=== PATIENT | male | born 1930 | race Caucasian/White ===

== ENCOUNTER 2016-12-04 15:19 | Observation (INO) ==
[2016-12-04] MEDS ORDERED: CEFTRIAXONE 1 G in NS 100 ML IV ONE (15:37)
[2016-12-04] MEDS ORDERED: SALINE FLUSH 10ml SYRINGE IVF PRN (15:37)
[2016-12-04] MEDS: LR 1,000 ML IV SCH ×3 (16:24→23:29)
--- NOTE | 2016-12-04 16:40 | XRay Report ---
Indication: Fever PROCEDURE: XR chest 1V: Encounter: Initial Comparison: 11/01/2015 Findings: The patient is status post median sternotomy. The exam is slightly expiratory in nature with somewhat discoid or linear atelectasis in both lung bases. No definite lobar consolidation or pleural effusion. Heart size is normal. There is moderate calcification of the transverse thoracic aorta. There is mild tortuosity of the descending thoracic aorta. Heart size is normal. Impression: Linear changes of atelectasis or scarring in both lung bases with overall expiratory technique. .
--- NOTE | 2016-12-04 16:58 | Emergency Department Report ---
Fever HPI - General Chief Complaint: Fever Stated Complaint: fever,chills,(cancer pt) Time Seen by Provider: 12/04/16 15:29 Source: patient, old records reviewed Mode of arrival: ambulatory Limitations: no limitations - History of Present Illness HPI Narrative: 86yo man presents to the ER for evaluation of a fever. Pt has lymphoma; is being treated by Dr. Heredia. Pt had a biliary perc tube placed 5 days ago; was told to present to the ER if he had a fever. Today, pt spiked a temp of 101'F; dutifully presented to the ER. complaint: fever Onset (ago): hour(s) Temperature Source: oral Context: recent procedure Associated symptoms: chills, rigors Relieving factors: acetaminophen Exacerbating factors: nothing Treatments prior to arrival fever: acetaminophen - Related Data Home Medications Medication Instructions Recorded Confirmed Ascorbic Acid [Vitamin C] 500 mg PO DAILY #0 09/18/15 12/04/16 Aspirin [Aspir 81] 81 mg PO HS #0 09/18/15 12/04/16 Atenolol 25 mg PO BID #0 09/18/15 12/04/16 Multivitamin with Minerals 1 tab PO HS #0 09/18/15 12/04/16 [Multivitamins with Minerals] Phenytoin Sodium Extended 200 mg PO BID #0 09/18/15 12/04/16 Calcium Carbonate [Caltrate] 600 mg PO DAILY 12/04/16 12/04/16 Chlorpheniramine [Chlor-Trimeton] 4 mg PO BID 12/04/16 12/04/16 Cholecalciferol (Vitamin D3) 1,000 unit PO DAILY 12/04/16 12/04/16 [Vitamin D3] Cod Liver Oil 1 cap PO DAILY 12/04/16 12/04/16 Cyanocobalamin (Vitamin B-12) 1,000 mcg PO DAILY 12/04/16 12/04/16 [Vitamin B-12] Famciclovir [Famvir] 500 mg PO BID 12/04/16 12/04/16 Fenofibrate [Lofibra] 160 mg PO HS 12/04/16 12/04/16 Latanoprost 1 drop EACH EYE HS 12/04/16 12/04/16 Levothyroxine Tab [Synthroid] 25 mcg PO DAILY 12/04/16 12/04/16 Losartan [Cozaar] 50 mg PO HS 12/04/16 12/04/16 Metformin [Glucophage] 25 mg PO BID 12/04/16 12/04/16 Byron-3/Dha/Epa/Fish Oil [Fish Oil 2,000 mg PO DAILY 12/04/16 12/04/16 1,000 mg Softgel] Omeprazole 40 mg PO BID 12/04/16 12/04/16 Oxycodone/Acetaminophen 5/325 1 - 2 tab PO Q4H PRN 12/04/16 12/04/16 [Percocet 5/325] Red Yeast Rice 600 mg PO BID 12/04/16 12/04/16 Ubidecarenone/Vit E Acet [Co Q-10 100 mg PO DAILY 12/04/16 12/04/16 100 mg Softgel] fentaNYL [Fentanyl] 1 patch TD Q72H 12/04/16 12/04/16 Allergies Allergy/AdvReac Type Severity Reaction Status Date / Time No Known Allergies Allergy Verified 12/04/16 15:44 Review of Systems All systems: reviewed and negative except as stated Constitutional: Reports: as per HPI, fever, chills Gastrointestinal: Reports: as per HPI, nausea PFSH Patient Stated Medical History Cataracts Yes Glaucoma Yes Myocardial Infarction Yes Diabetes Mellitus Type 2 Yes Gastroesophageal Reflux Yes Disease Hiatal Hernia Yes Other Yes: water filled cyst Cellulitis Yes Medical History Updates: Lymphoma Physical Exam - Limitations Limitations: no limitations - General General appearance: alert, in no apparent distress - Normal Exams: Head:: Normocephalic without trauma Eyes:: Pupils are PERRLA w/ EOMI, No scleral icterus, irritation, or foreign bodies noted ENMT:: No facial trauma, nasal exudates, pharyngeal erythema, or exudates are noted Neck:: Full range of motion, without adenopathy Chest/Respirations:: Clear all jeffery, with good airflow Cardiovascular:: Regular rate and rhythm, without murmur or gallop Abdomen:: Bowel sounds positive, soft, non-tender Lymphatic:: No lymphadenopathy Musculoskeletal:: No tenderness, or deformity noted Integumentary:: No rashes, hives, or bruising noted Neurological:: Patient is alert, and oriented Psychiatric:: Patient exhibits, appropriate attention - Abdominal Exam Abdominal exam: Present: other (PercQ bili tube in place with bilious drainage. Op site is clean, dry, and intact.) Course - Consultations Consultation #1: Dr. Heredia: Pts primary dx is lymphoma. Findings today not directly related. Not septic. Agrees with need for obs with atbx. Time: 16:45 Consultation #2: Hospitalist: Time: 17:08 Vital Signs Temperature 99.6 F 12/04/16 15:22 Pulse Rate 97 12/04/16 15:22 Respiratory Rate 18 12/04/16 15:22 Blood Pressure 164/70 H 12/04/16 15:22 Pulse Oximetry 96 12/04/16 15:22 Temperature 99.2 F 12/04/16 17:09 Pulse Rate 87 12/04/16 17:14 Respiratory Rate 18 12/04/16 17:09 Blood Pressure 134/63 12/04/16 17:09 Pulse Oximetry 95 12/04/16 17:09 Fever - MDM Narrative Medical decision making narrative: Pt with evidence of infection, but not ascending colangitis or sepsis. Discussed care with Heme/Onc and hospitalist. Pt will be admitted for continued observation and IV ATBX. - Differential Diagnosis Likely: cellulitis, fever of unknown origin, gastroenteritis, viral infection, sepsis, influenza - Medical Records Attestation: I reviewed the patient's medical records. - Lab Data Attestation: I reviewed the patient's lab results. Result diagrams: 12/04/16 16:07 12/04/16 16:07 Lab Results 12/04/16 12/04/16 12/04/16 Range/Units 16:07 16:07 16:07 WBC 13.7 H (4.5-11.0) T/MM3 RBC 3.14 L (4.50-5.90) M/MM3 Hgb 9.0 L (13.5-17.5) GM/DL Hct 27.6 L (41-53) % MCV 87.9 (80-100) UM3 MCH 28.7 (26-34) UUG MCHC 32.6 (31-37) GM/DL RDW Std Deviation 48.0 (36.9-50.2) FL Plt Count 393 D (130-400) T/MM3 MPV 9.4 (9.4-12.4) UM3 Immature Gran % (Auto) Not performed Neut % (Auto) Not performed Lymph % (Auto) Not performed Schley % (Auto) Not performed Eos % (Auto) Not performed Baso % (Auto) Not performed Neut # Not performed Lymph # Not performed Schley # Not performed Eos # Not performed Baso # Not performed Abs Immat Gran (auto) Not performed Neutrophils % (Manual) 84.0 H (33-66) % Band Neutrophils % 6.0 (0-6) % Lymphocytes % (Manual) 7.0 L (23-45) % Monocytes % (Manual) 3.0 (0-9.0) % Neutrophils # (Manual) 11.5 H (1.8-7.7) T/MM3 Band Neutrophils # 0.8 T/MM3 Lymphocytes # (Manual) 1.0 (1-4.8) T/MM3 Monocytes # (Manual) 0.4 (0-0.8) T/MM3 Poikilocytosis 1+ Anisocytosis 1+ Tear Drop Cells 1+ Ovalocytes 1+ RBC Morph Comment Abnormal INR 1.34 H (0.99-1.21) Turbidity (0-20) Sodium (134-144) MEQ/L Potassium (3.6-5) MEQ/L Chloride (98-107) MEQ/L Carbon Dioxide (22-30) MEQ/L Anion Gap (5-15) MEQ/L BUN (9-20) MG/DL Creatinine (0.8-1.5) MG/DL GFR Calculation BUN/Creatinine Ratio (6-26) RATIO Glucose (75-110) MG/DL Calculated Osmolality (261-280) MOSM/KG Calcium (8.4-10.2) MG/DL Total Bilirubin (0.20-1.30) MG/DL Icterus Index (0-7) AST (17-59) U/L ALT (21-72) U/L Alkaline Phosphatase (38-126) U/L Total Protein (6.3-8.2) G/DL Albumin (3.5-5.0) G/DL Globulin (2.4-3.6) G/DL Albumin/Globulin Ratio (1.1-2.2) RATIO Plasma Lactate (0.6-2.2) MMOL/L Procalcitonin 0.46 NG/ML Specimen Hemolysis (0-25) Ur Collection Type Urine Color (YELLOW) Urine Clarity Urine pH (5.0-8.0) Ur Specific Gazelle (1.015-1.025) Urine Protein (NEGATIVE) Urine Glucose (UA) (NEGATIVE) Urine Ketones (NEGATIVE) Urine Occult Blood (NEGATIVE) Urine Nitrate (NEGATIVE) Urine Bilirubin (NEGATIVE) Urine Urobilinogen (NORMAL) EU/DL Ur Leukocyte Esterase (NEGATIVE) Urine RBC (0-3) /HPF Urine WBC (0-5) /HPF Ur Squamous Epith Cells Amorphous Sediment Urine Bacteria (NEGATIVE) Urine Mucus Ur Culture Indicated? 12/04/16 12/04/16 12/04/16 Range/Units 16:07 16:13 16:26 WBC (4.5-11.0) T/MM3 RBC (4.50-5.90) M/MM3 Hgb (13.5-17.5) GM/DL Hct (41-53) % MCV (80-100) UM3 MCH (26-34) UUG MCHC (31-37) GM/DL RDW Std Deviation (36.9-50.2) FL Plt Count (130-400) T/MM3 MPV (9.4-12.4) UM3 Immature Gran % (Auto) Neut % (Auto) Lymph % (Auto) Schley % (Auto) Eos % (Auto) Baso % (Auto) Neut # Lymph # Schley # Eos # Baso # Abs Immat Gran (auto) Neutrophils % (Manual) (33-66) % Band Neutrophils % (0-6) % Lymphocytes % (Manual) (23-45) % Monocytes % (Manual) (0-9.0) % Neutrophils # (Manual) (1.8-7.7) T/MM3 Band Neutrophils # T/MM3 Lymphocytes # (Manual) (1-4.8) T/MM3 Monocytes # (Manual) (0-0.8) T/MM3 Poikilocytosis Anisocytosis Tear Drop Cells Ovalocytes RBC Morph Comment INR (0.99-1.21) Turbidity < 20 (0-20) Sodium 137 (134-144) MEQ/L Potassium 4.5 (3.6-5) MEQ/L Chloride 102 (98-107) MEQ/L Carbon Dioxide 25 (22-30) MEQ/L Anion Gap 10 (5-15) MEQ/L BUN 21.0 H (9-20) MG/DL Creatinine 0.8 (0.8-1.5) MG/DL GFR Calculation 92 BUN/Creatinine Ratio 26 (6-26) RATIO Glucose 164 H (75-110) MG/DL Calculated Osmolality 271 (261-280) MOSM/KG Calcium 9.6 (8.4-10.2) MG/DL Total Bilirubin 1.10 (0.20-1.30) MG/DL Icterus Index < 2 (0-7) AST 58 (17-59) U/L ALT 46 (21-72) U/L Alkaline Phosphatase 158 H (38-126) U/L Total Protein 6.8 (6.3-8.2) G/DL Albumin 3.4 L (3.5-5.0) G/DL Globulin 3.4 (2.4-3.6) G/DL Albumin/Globulin Ratio 1.0 L (1.1-2.2) RATIO Plasma Lactate 0.9 (0.6-2.2) MMOL/L Procalcitonin NG/ML Specimen Hemolysis < 15 (0-25) Ur Collection Type Urine, clean catch Urine Color Susanna (YELLOW) Urine Clarity Clear Urine pH 5.0 (5.0-8.0) Ur Specific Gazelle 1.025 (1.015-1.025) Urine Protein 1+ A (NEGATIVE) Urine Glucose (UA) Negative (NEGATIVE) Urine Ketones Negative (NEGATIVE) Urine Occult Blood Negative (NEGATIVE) Urine Nitrate Negative (NEGATIVE) Urine Bilirubin Negative (NEGATIVE) Urine Urobilinogen 0.2 (NORMAL) EU/DL Ur Leukocyte Esterase Negative (NEGATIVE) Urine RBC 0-1 (0-3) /HPF Urine WBC 0-1 (0-5) /HPF Ur Squamous Epith Cells 20-50 Amorphous Sediment Moderate Urine Bacteria Trace H (NEGATIVE) Urine Mucus Present Ur Culture Indicated? Cult not indicated - Radiology Data Attestation: I reviewed the patient's radiology results. CXR: Findings: The patient is status post median sternotomy. The exam is slightly expiratory in nature with somewhat discoid or linear atelectasis in both lung bases. No definite lobar consolidation or pleural effusion. Heart size is normal. There is moderate calcification of the transverse thoracic aorta. There is mild tortuosity of the descending thoracic aorta. Heart size is normal. Impression: Linear changes of atelectasis or scarring in both lung bases with overall expiratory technique. - EKG Data EKG #1 EKG attestation: Yes: I reviewed and interpreted this EKG. EKG shows normal: axis Rhythm: junctional Interpretation: nonspecific ST-T wave changes Disposition Clinical Impression: Infection Fever Qualifiers: Fever type: unspecified Qualified Code(s): R50.9 - Fever, unspecified Disposition: To [facility] Time of Disposition: 17:37 - Seen By: physician
[2016-12-04] MEDS: PIPERACILLIN/TAZOBACTAM 3.375 GM in NS 100 ML IV SCH (17:26)
[2016-12-04] MEDS ORDERED: Oxycodone/Acetaminophen 5/325 1 TAB PO ONE (17:30)
[2016-12-04] MEDS ORDERED: ONDANSETRON 4 MG/2 ML INJECTION IVP ONE (17:31)
--- NOTE | 2016-12-04 18:10 | History & Physical Report ---
<Tracie Day - Last Filed: 12/04/16 18:49> History of Present Illness Date: 12/04/16 Chief complaint: fever HPI: Patient is a pleasant 86-year-old male who presents to the emergency department with his and daughter due to developing fever overnight. He had a percutaneous biliary stent placed in [place] on 11/30/16 and was told to report to the emergency room if he developed fever. He reports a fever, up to 101. In the ER was as high as 100.1. He was recently diagnosed with lymphoma in October. He has not yet started treatment for this. He has established with oncologist, Dr. Heredia. Dr. Archuleta (ED physician) discussed his case with Dr. Heredia, who recommended hospitalization for observation and IV antibiotics. In the emergency room his white blood count was 13.7, hemoglobin is low at 9.0. Lactate was 0.9. Procalcitonin was 0.46. His INR was 1.34. Liver enzymes were normal. Alkaline phosphatase was elevated at 158. Urine was essentially negative. Chest x-ray showed changes of atelectasis versus scarring in both lung bases, nothing acute. EKG showed a junctional rhythm with rate of 91 bpm. He was given a gram of Rocephin in the emergency room and was bolused with lactated Ringers. He had been prescribed a fentanyl patch for pain previously, but patient and daughter were hesitant to use this. After conversation with Dr. Archuleta, they agreed to go ahead and apply this. He was given 1 dose of Percocet 5 in the ER as well. He was also given a dose of Zofran in the ER for his nausea. Patient reports he was having nausea and lack of appetite which prompted him to be seen by his primary care physician. He had a CT scan of his abdomen and pelvis November 06 which showed a peripancreatic mass and adenopathy with additional mesenteric adenopathy encasing the SMA. He reports he has also had lymph node biopsy in the area surrounding the pancreas. He also mentions that several weeks ago he underwent treadmill testing with Dr. Hensley. Patient reports it was negative. He reports he also had an echocardiogram and carotid Doppler. 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 He also reports recent UTI treated with antibiotics in September. Patient was interviewed in the emergency room with his daughter and present. He is in no acute distress and is appropriate in conversation. His main complaint at this time is nausea. He was able to keep some oatmeal down this morning and a deviled egg at noon. He has had some vomiting today. reports he's had a significant weight loss over the last month. He reports he has chronic constipation. Usually takes stool softeners and Gas-X. His last vomiting was the day before yesterday. He also complains of chronic left shoulder pain, but recently has had a lot of bilateral hip and bilateral shoulder pain. He wonders if it's from being inactive and lying in bed. Review of Systems All systems PM: 10-point ROS was reviewed, no additional remarkable complaints except - Constitutional Constitutional: Present: anorexia, fatigue, fever(s), weight loss - Gastrointestinal Gastrointestinal: Present: abdominal pain, constipation - Genitourinary Genitourinary: Present: other (ED) - Musculoskeletal Musculoskeletal: Present: limited range of motion (L shoulder), other (b/l hip and shoulder pain) - Integumentary/Breasts Integumentary: Present: other (pale) PFSH Past Medical History Lymphoma Coronary artery disease Carotid atherosclerosis Hypertension Hyperlipidemia Type 2 diabetes Recurrent ocular herpes zoster Hypothyroidism Glaucoma Osteoarthritis Surgical History: CABG 4 (1997), CABG 3 (2005), cardiac stent (2013), rotator cuff repair-left (), removal of benign right kidney cyst (1985), tonsillectomy- (childhood), percutaneous biliary stent (11/30/16) Family History: Father age 87-hit by a train Mother age 83 following complications from hip surgery, asthma Brother of old age Brother of pancreatic cancer Sister of leukemia Brother of Alzheimer's disease Sister at age 83 of complications from bowel surgery - Social History Smoking status: Never smoker Substance use type: does not use Alcohol intake frequency: does not drink Housing: house (moved here from [place], [place] in July 2015) Household members: spouse Current occupational status: retired Social history: Dr Danita Sharma - PCP Dr. Raul Vargas - uro Dr. 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 Medications Home Medications Medication Instructions Recorded Confirmed Type Ascorbic Acid [Vitamin C] 500 mg PO DAILY #0 09/18/15 12/04/16 History Aspirin [Aspir 81] 81 mg PO HS #0 09/18/15 12/04/16 History Atenolol 25 mg PO BID #0 09/18/15 12/04/16 History Multivitamin with Minerals 1 tab PO HS #0 09/18/15 12/04/16 History [Multivitamins with Minerals] Phenytoin Sodium Extended 200 mg PO BID #0 /11/2512/04/16 History Calcium Carbonate [Caltrate] 600 mg PO DAILY 12/04/16 12/04/16 History Chlorpheniramine [Chlor-Trimeton] 4 mg PO BID 12/04/16 12/04/16 History Cholecalciferol (Vitamin D3) 1,000 unit PO DAILY 12/04/16 12/04/16 History [Vitamin D3] Cod Liver Oil 1 cap PO DAILY 12/04/16 12/04/16 History Cyanocobalamin (Vitamin B-12) 1,000 mcg PO DAILY 12/04/16 12/04/16 History [Vitamin B-12] Famciclovir [Famvir] 500 mg PO BID 12/04/16 12/04/16 History Fenofibrate [Lofibra] 160 mg PO HS 12/04/16 12/04/16 History Latanoprost 1 drop EACH EYE HS 12/04/16 12/04/16 History Levothyroxine Tab [Synthroid] 25 mcg PO DAILY 12/04/16 12/04/16 History Losartan [Cozaar] 50 mg PO HS 12/04/16 12/04/16 History Metformin [Glucophage] 25 mg PO BID 12/04/16 12/04/16 History [place]-3/Dha/Epa/Fish Oil [Fish Oil 2,000 mg PO DAILY 12/04/16 12/04/16 History 1,000 mg Softgel] Omeprazole 40 mg PO BID 12/04/16 12/04/16 History Oxycodone/Acetaminophen 5/325 1 - 2 tab PO Q4H PRN 12/04/16 12/04/16 History [Percocet 5/325] Red Yeast Rice 600 mg PO BID 12/04/16 12/04/16 History Ubidecarenone/Vit E Acet [Co Q-10 100 mg PO DAILY 12/04/16 12/04/16 History 100 mg Softgel] fentaNYL [Fentanyl] 1 patch TD Q72H 12/04/16 12/04/16 History Allergies Allergy/AdvReac Type Severity Reaction Status Date / Time No Known Allergies Allergy Verified 12/04/16 15:44 Exam Vital Signs: Temperature 99.2 F 12/04/16 17:09 Pulse Rate 87 12/04/16 17:14 Respiratory Rate 18 12/04/16 17:09 Blood Pressure 134/63 12/04/16 17:09 Pulse Oximetry 95 12/04/16 17:09 - Constitutional Present: no acute distress, well nourished, well developed, thin, cooperative - Routine HEENT Exam Eye: Present: EOMI, PERRL, exophthalmos (R eye) ENT: Present: mucous membranes moist - Routine Neck Exam Present: supple. Absent: carotid bruit, tenderness - Routine Respiratory Exam Present: CTA bilaterally. Absent: wheezes - Routine Cardiovascular Exam Present: RRR, S1, S2. Absent: murmur - Routine Abdominal Exam Present: soft, tenderness, non distended, drain (percutaneous biliary tube in place with bilious drainage). Absent: normoactive bowel sounds (hypoactive), guarding, firm - Routine Extremities Exam Present: edema (trace b/l - has compression stockings on ), normal capillary refill - Detailed Upper Extremity Exam Shoulder/Upper Arm: Left tenderness, Left decreased ROM - Routine Skin Exam Present: dry, pallor, warm - Routine Neurological Exam Present: alert, oriented X3, CN II-XII intact - Routine Psychiatric Exam Present: normal affect Results - Labs CBC & Chem 7: 12/04/16 16:07 12/04/16 16:07 Labs: Laboratory Tests 12/04/16 16:07 INR 1.34 H Laboratory Tests 12/04/16 16:07 AST 58 ALT 46 Alkaline Phosphatase 158 H Total Protein 6.8 Albumin 3.4 L Globulin 3.4 Albumin/Globulin Ratio 1.0 L Laboratory Tests 12/04/16 12/04/16 16:07 16:13 Plasma Lactate 0.9 Procalcitonin 0.46 Laboratory Tests 12/04/16 16:26 Urine Clarity Clear Urine pH 5.0 Ur Specific [place] 1.025 Urine Protein 1+ A Urine Glucose (UA) Negative Urine Ketones Negative Urine Occult Blood Negative Urine Nitrate Negative Urine Bilirubin Negative Urine Urobilinogen 0.2 Ur Leukocyte Esterase Negative Urine RBC 0-1 Urine WBC 0-1 Ur Squamous Epith Cells 20-50 Amorphous Sediment Moderate Urine Bacteria Trace H - ECG Data Tracing #1 junctional rhythm at 91bpm - Imaging and Cardiology Chest x-ray Additional comments: Findings: The patient is status post median sternotomy. The exam is slightly expiratory in nature with somewhat discoid or linear atelectasis in both lung bases. No definite lobar consolidation or pleural effusion. Heart size is normal. There is moderate calcification of the transverse thoracic aorta. There is mild tortuosity of the descending thoracic aorta. Heart size is normal. Impression: Linear changes of atelectasis or scarring in both lung bases with overall expiratory technique. CT scan - abdomen Additional comments: 10/29/16 CT-abdomen and pelvis Impression: 1. Peripancreatic mass and adenopathy with additional mesenteric adenopathy encasing the SMA. Given the splenic lesions present, findings are most suspicious for lymphoma. Metastatic pancreatic and gastric cancer would also be within the differential. Oncology consultation is recommended. Endoscopic transgastric biopsy of the pancreatic tail area mass would probably be the safest route for obtaining a tissue diagnosis as the mesenteric adenopathy is strongly concentrated around prominent mesenteric arteries and veins. 2. Left intrahepatic bile duct obstruction of uncertain chronicity. If considerations would include bile duct stone, sludge or neoplasm/metastasis. ERCP may be helpful for further evaluation. 3. Possible lytic metastasis versus unrelated bone cyst in the left iliac bone. Nuclear medicine bone scan may be helpful for further evaluation. Assessment and Plan (1) Fever Current visit: Yes Status: Acute (2) Leukocytosis Current visit: Yes Status: Acute DVT Prophylaxis: SCD's Resuscitation Status: Do Not Resuscitate Assessment and Plan: Impression Fever with leukocytosis- meets 3/4 SIRS criteria with elevated temp, tachycardia , and leukocytosis, but no obvious source of suspected infection at this time Lymphoma-recent diagnosis (no treatment has yet been initiated) Nausea, vomiting, and weight loss secondary to above diagnoses Type 2 diabetes-controlled Coronary artery disease Carotid atherosclerosis Hypertension Hyperlipidemia Hypothyroidism 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 Kirby attending) for observation, IV fluids, pain control and IV antibiotics. Initiate Zosyn for empiric antimicrobial coverage of potential GI pathogens Fentanyl patch has been placed and PRN order for Percocet for pain Normal saline 100 mLs/hr IV for rehydration and maintenance IV Zofran as needed for nausea SCDs for VTE prophylaxis Omeprazole for GI prophylaxis Hold metformin secondary to poor p.o. intake Senna Plus and MiraLAX ordered for bowel motivation Patient requests DO NOT RESUSCITATE status. This order is written. Patient's care to return to Dr. Danita Sharma at time of discharge. Sepsis Assessment - Evaluation Confirmed Suspected Infection: No SIRS Criteria: temperature > or equal to 100.4, pulse > or equal to 90 beats/ minute, WBC > or equal to 12,000 Hospital Course Summary Disclaimer: The visit summary below is not to be considered part of the above Progress Note. 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 Kirby attending) for observation, IV fluids, pain control and IV antibiotics. Initiate Zosyn for empiric antimicrobial coverage of potential GI pathogens Fentanyl patch has been placed and PRN order for Percocet for pain Normal saline 100 mLs/hr IV for rehydration and maintenance IV Zofran as needed for nausea SCDs for VTE prophylaxis Omeprazole for GI prophylaxis Hold metformin secondary to poor p.o. intake Senna Plus and MiraLAX ordered for bowel motivation Patient requests DO NOT RESUSCITATE status. This order is written. Patient's care to return to Dr. Danita Sharma at time of discharge. <Aron Kirby - Last Filed: 12/04/16 19:37> History of Present Illness Date: 12/04/16 [facility] Patient Stated Medical History Cataracts Yes: bilateral-removed Glaucoma Yes Myocardial Infarction Yes Diabetes Mellitus Type 2 Yes Gastroesophageal Reflux Yes Disease Hiatal Hernia Yes Other Yes: water filled cyst Cellulitis Yes Exam Vital Signs: Temperature 100.1 F 12/04/16 18:19 Pulse Rate 90 12/04/16 18:19 Respiratory Rate 18 12/04/16 18:19 Blood Pressure 129/71 12/04/16 18:19 Pulse Oximetry 94 12/04/16 18:19 Height/Weight/BMI: Height 1.65 m Weight 60.2 kg Body Mass Index 22.1 Results - Labs CBC & Chem 7: 12/04/16 16:07 12/04/16 16:07 Assessment and Plan (1) Fever Current visit: Yes Status: Acute (2) Leukocytosis Current visit: Yes Status: Acute Assessment and Plan: Impression Fever with leukocytosis- meets 3/4 SIRS criteria with elevated temp, tachycardia , and leukocytosis, but no obvious source of suspected infection at this time Lymphoma-recent diagnosis (no treatment has yet been initiated) Nausea, vomiting, and weight loss secondary to above diagnoses Type 2 diabetes-controlled Coronary artery disease Carotid atherosclerosis Hypertension Hyperlipidemia Hypothyroidism 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 Chart reviewed. Case discussed with ED physician and my PA. Care plan developed with my supervision; agree with above. Presents to ED secondary to increased temp. Onset today. Chills/sweats. Nausea but no emesis. Appetite with decreased. Episode of loose stool yesterday- typically had been constipated. Breathing stable-not SOA or congested. WBC elevated in ED. BP preserved. Lactate normal. Lungs: decreased, no distress CV: Regular AB: soft no rebound. BS decreased EXT: no edema-compression socks in place MSE: awake alert appropriate Plan: OBS. Zosyn for antimicrobial coverage of GI pathogens. IVF for hydration. Recheck lactate. Hold metformin. Monitor blood sugars. SCD. Continue home pain medications. Zofran IV for nausea control. Hospital Course Summary Disclaimer: The visit summary below is not to be considered part of the above Progress Note.
[2016-12-04] MEDS ORDERED: Oxycodone/Acetaminophen 5/325 1 TAB PO PRN (18:20)
[2016-12-04 18:39] VITALS: BMI 22.1
[2016-12-04] MEDS: NS 1,000 ML IV SCH (19:00)
[2016-12-04] MEDS ORDERED: ONDANSETRON 4 MG/2 ML INJECTION IVP PRN (19:03)
[2016-12-04] MEDS: PHENYTOIN 100 MG PO SCH (20:32)
[2016-12-04] MEDS: FAMCICLOVIR 500 MG PO SCH (20:33)
[2016-12-04] MEDS: Oxycodone/Acetaminophen 5/325 1 TAB PO PRN (20:33)
[2016-12-04] MEDS: ATENOLOL 25 MG PO SCH (20:34)
[2016-12-04] MEDS ORDERED: POM LOSARTAN 50 MG TABLET PO SCH (21:00)
[2016-12-04] MEDS ORDERED: EYE EACH EYE SCH (21:00)
[2016-12-04] MEDS ORDERED: LATANOPROST 0.005% EACH EYE SCH (21:00)
[2016-12-04] MEDS ORDERED: ASPIRIN *EC* 81 MG TABLET PO SCH (21:00)
[2016-12-04] MEDS ORDERED: FENOFIBRATE 160 MG TABLET PO SCH (21:00)
[2016-12-04] MEDS: SENNA + DOCUSATE TABLET PO SCH (22:34)
[2016-12-05] MEDS: PIPERACILLIN/TAZOBACTAM 3.375 GM in NS 100 ML IV SCH ×3 (00:42→11:24)
[2016-12-05] MEDS: Oxycodone/Acetaminophen 5/325 1 TAB PO PRN (00:50)
[2016-12-05] MEDS: NS 1,000 ML IV SCH (06:27)
[2016-12-05] MEDS ORDERED: LEVOTHYROXINE 25 MCG TABLET PO SCH (06:30)
[2016-12-05] MEDS ORDERED: OMEPRAZOLE 20 MG CAPSULE PO SCH (06:30)
[2016-12-05 07:31] VITALS: RESP 17
[2016-12-05] MEDS ORDERED: POLYETHYL GLYCOL 3350 17gm PACKET PO SCH (09:00)
[2016-12-05] MEDS ORDERED: ASCORBIC ACID 500 MG TABLET PO SCH (09:00)
[2016-12-05] MEDS: FAMCICLOVIR 500 MG PO SCH (09:23)
[2016-12-05] MEDS: PHENYTOIN 100 MG PO SCH (09:23)
[2016-12-05] MEDS: ATENOLOL 25 MG PO SCH (09:24)
[2016-12-05] MEDS: SENNA + DOCUSATE TABLET PO SCH (09:24)
[2016-12-05 15:37] VITALS: BP 116/67; PULSE 69; TEMP 98.6; O2SAT 93
[2016-12-05] MEDS ORDERED: OMEPRAZOLE 40 MG PO SCH (17:00)
--- NOTE | 2016-12-05 17:11 | Progress Note ---
Subjective: F/U: Fever, leukocytosis Doing well this evening. No further fevers or chills. Had an episode of nausea and vomiting earlier when trying to take oral medications. Has not recurred. Eating and drinking okay. No significant ab pain. Not had stool. Breathing well. Feeling better overall. Objective Vital signs: Temperature 98.6 F 12/05/16 15:35 Pulse Rate 69 12/05/16 15:35 Respiratory Rate 17 12/05/16 15:35 Blood Pressure 116/67 12/05/16 15:35 Pulse Oximetry 93 12/05/16 15:35 Height/Weight/BMI: Height 1.65 m Weight 60.1 kg Body Mass Index 22.1 - Constitutional Present: no acute distress, well nourished, well developed, cooperative - Routine HEENT Exam Head: Present: normocephalic, atraumatic Eye: Present: EOMI, PERRL ENT: Present: mucous membranes moist - Routine Respiratory Exam Present: decreased breath sounds. Absent: respiratory distress, rhonchi, wheezes, crackles - Routine Cardiovascular Exam Present: RRR - Routine Abdominal Exam Present: soft, normoactive bowel sounds, non distended, non tender. Absent: rebound, guarding - Routine Extremities Exam Present: pulses intact. Absent: cyanosis, clubbing - Routine Musculoskeletal Exam Musculoskeletal: Present: no clubbing or cyanosis, normal strength - Routine Skin Exam Present: dry, warm - Routine Neurological Exam Present: alert, CN II-XII intact, moving all extremities, vision grossly intact , hearing grossly intact. Absent: motor deficit - Routine Psychiatric Exam Present: normal affect, normal thought process, cooperative. Absent: anxious, agitated Results - Labs CBC & Chem 7: 12/05/16 03:51 12/05/16 03:51 Assessment and Plan (1) Fever Current visit: Yes Status: Acute (2) Leukocytosis Current visit: Yes Status: Acute DVT Prophylaxis: SCD's Resuscitation Status: Do Not Resuscitate Assessment and Plan: Impression Fever with leukocytosis- meets 3/4 SIRS criteria with elevated temp, tachycardia , and leukocytosis, but no obvious source of suspected infection at this time Lymphoma-recent diagnosis (no treatment has yet been initiated) Nausea, vomiting, and weight loss secondary to above diagnoses Type 2 diabetes-controlled Coronary artery disease Carotid atherosclerosis Hypertension Hyperlipidemia Hypothyroidism 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 No further temp elevations. Oral intake improving. Feeling much better overall. Will discharge to home. Start Augmentin 875 BID with meal for antimicrobial coverage-will start this evening. Patient scheduled for PET scan for tomorrow by Dr Yan Blevins not sure of time or details (report they have gotten no information regarding this); thought the Bx last week was done in place of PET scan. Nursing checking on details for this procedure. Continue chronic medications - Augment new medication - - use for 5 more days at home. Patient to follow up with Dr Heredia tomorrow as scheduled. See orders for details. Time spent with patient care and discharge greater than 30 minutes. Did discuss patient's case with Dr Heredia. Hospital Course Summary Disclaimer: The visit summary below is not to be considered part of the above Progress Note. 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 Kirby attending) for observation, IV fluids, pain control and IV antibiotics. Initiate Zosyn for empiric antimicrobial coverage of potential GI pathogens Fentanyl patch has been placed and PRN order for Percocet for pain Normal saline 100 mLs/hr IV for rehydration and maintenance IV Zofran as needed for nausea SCDs for VTE prophylaxis Omeprazole for GI prophylaxis Hold metformin secondary to poor p.o. intake Senna Plus and MiraLAX ordered for bowel motivation Patient requests DO NOT RESUSCITATE status. This order is written. Patient's care to return to Dr. Danita Sharma at time of discharge. 12/05/16 Leukocytosis resolved. No further temp elevations. Oral intake improving. Feeling much better overall. Will discharge to home. Start Augmentin 875 BID with meal for antimicrobial coverage-will start this evening. Patient scheduled for PET scan for tomorrow by Dr Yan Blevins not sure of time or details (report they have gotten no information regarding this); thought the Bx last week was done in place of PET scan. Nursing checking on details for this procedure. Continue chronic medications - Augment new medication - - use for 5 more days at home. Patient to follow up with Dr Heredia tomorrow as scheduled. See orders for details.
--- NOTE | 2016-12-05 17:17 | Discharge Summary ---
Discharge Information Date of admission: 12/04/16 17:34 Anticipated date of discharge: 12/05/16 Attending Physician: Aron Kirby MD Primary care physician: Yanci Heredia MD Consults: Physician Consult: Yanci Heredia - Discharge Diagnosis (1) Fever Status: Acute (2) Leukocytosis Status: Acute Discharge Diagnosis: Discharge diagnosis Fever with leukocytosis- meets 3/4 SIRS criteria with elevated temp, tachycardia , and leukocytosis, but no obvious source of suspected infection at this time Associated conditions and complications Lymphoma-recent diagnosis (no treatment has yet been initiated) Nausea, vomiting, and weight loss secondary to above diagnoses Type 2 diabetes-controlled Coronary artery disease Carotid atherosclerosis Hypertension Hyperlipidemia Hypothyroidism 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 Osteoarthritis Glaucoma Chronic constipation - Laboratory Labs: Admit Lab 12/04/16 16:07 WBC 13.7 H Hgb 9.0 L Hct 27.6 L MCV 87.9 Plt Count 393 D Neutrophils % (Manual) 84.0 H Band Neutrophils % 6.0 Lymphocytes % (Manual) 7.0 L Monocytes % (Manual) 3.0 Admit Lab 12/04/16 16:07 Sodium 137 Potassium 4.5 Chloride 102 Carbon Dioxide 25 Anion Gap 10 BUN 21.0 H Creatinine 0.8 GFR Calculation 92 BUN/Creatinine Ratio 26 Glucose 164 H Calculated Osmolality 271 Calcium 9.6 Total Bilirubin 1.10 AST 58 ALT 46 Alkaline Phosphatase 158 H Albumin 3.4 L 12/05/16 03:51 12/05/16 03:51 - Radiology Radiology: Date of Exam: 12/04/16 PROCEDURE: XR chest 1V Findings: The patient is status post median sternotomy. The exam is slightly expiratory in nature with somewhat discoid or linear atelectasis in both lung bases. No definite lobar consolidation or pleural effusion. Heart size is normal. There is moderate calcification of the transverse thoracic aorta. There is mild tortuosity of the descending thoracic aorta. Heart size is normal. Impression: Linear changes of atelectasis or scarring in both lung bases with overall expiratory technique. History of Present Illness HPI: Patient is a pleasant 86-year-old male who presents to the emergency department with his and daughter due to developing fever overnight. He had a percutaneous biliary stent placed in [place] on 11/30/16 and was told to report to the emergency room if he developed fever. He reports a fever, up to 101. In the ER was as high as 100.1. He was recently diagnosed with lymphoma in October. He has not yet started treatment for this. He has established with oncologist, Dr. Heredia. Dr. Archuleta (ED physician) discussed his case with Dr. Heredia, who recommended hospitalization for observation and IV antibiotics. In the emergency room his white blood count was 13.7, hemoglobin is low at 9.0. Lactate was 0.9. Procalcitonin was 0.46. His INR was 1.34. Liver enzymes were normal. Alkaline phosphatase was elevated at 158. Urine was essentially negative. Chest x-ray showed changes of atelectasis versus scarring in both lung bases, nothing acute. EKG showed a junctional rhythm with rate of 91 bpm. He was given a gram of Rocephin in the emergency room and was bolused with lactated Ringers. He had been prescribed a fentanyl patch for pain previously, but patient and daughter were hesitant to use this. After conversation with Dr. Archuleta, they agreed to go ahead and apply this. He was given 1 dose of Percocet 5 in the ER as well. He was also given a dose of Zofran in the ER for his nausea. Patient reports he was having nausea and lack of appetite which prompted him to be seen by his primary care physician. He had a CT scan of his abdomen and pelvis November 06 which showed a peripancreatic mass and adenopathy with additional mesenteric adenopathy encasing the SMA. He reports he has also had lymph node biopsy in the area surrounding the pancreas. He also mentions that several weeks ago he underwent treadmill testing with Dr. Hensley. Patient reports it was negative. He reports he also had an echocardiogram and carotid Doppler. 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 He also reports recent UTI treated with antibiotics in September. Patient was interviewed in the emergency room with his daughter and present. He is in no acute distress and is appropriate in conversation. His main complaint at this time is nausea. He was able to keep some oatmeal down this morning and a deviled egg at noon. He has had some vomiting today. reports he's had a significant weight loss over the last month. He reports he has chronic constipation. Usually takes stool softeners and Gas-X. His last vomiting was the day before yesterday. He also complains of chronic left shoulder pain, but recently has had a lot of bilateral hip and bilateral shoulder pain. He wonders if it's from being inactive and lying in bed. For complete details of the H&P refer to that document Objective Vital signs: Temperature 98.6 F 12/05/16 15:35 Pulse Rate 69 12/05/16 15:35 Respiratory Rate 17 12/05/16 15:35 Blood Pressure 116/67 12/05/16 15:35 Pulse Oximetry 93 12/05/16 15:35 Height/Weight/BMI: Height 1.65 m Weight 60.1 kg Body Mass Index 22.1 Hospital Course This is a general summary of the patient's hospital course. For more details refer to the complete medical record. 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 Kirby attending) for observation, IV fluids, pain control and IV antibiotics. Initiate Zosyn for empiric antimicrobial coverage of potential GI pathogens Fentanyl patch has been placed and PRN order for Percocet for pain Normal saline 100 mLs/hr IV for rehydration and maintenance IV Zofran as needed for nausea SCDs for VTE prophylaxis Omeprazole for GI prophylaxis Hold metformin secondary to poor p.o. intake Senna Plus and MiraLAX ordered for bowel motivation Patient requests DO NOT RESUSCITATE status. This order is written. Patient's care to return to Dr. Danita Sharma at time of discharge. 12/05/16 Leukocytosis resolved. No further temp elevations. Oral intake improving. Feeling much better overall. Will discharge to home. Start Augmentin 875 BID with meal for antimicrobial coverage-will start this evening. Patient scheduled for PET scan for tomorrow by Dr Heredia Family not sure of time or details (report they have gotten no information regarding this); thought the Bx last week was done in place of PET scan. Nursing checking on details for this procedure. Continue chronic medications - Augment new medication - - use for 5 more days at home. Patient to follow up with Dr Heredia tomorrow as scheduled. See orders for details. Time spent with patient: greater than 35 minutes DVT Prophylaxis: SCD's Discharge Plan - Med Rec/Dispo Referrals/Follow Up: Yanci Heredia MD [Family Provider] - (Follow up as scheduled) Danita Sharma MD [Physician] - 1 Week (F/U in 1 week for medical evaluation and hospital follow up. ) [place] Instructions: Fever in Adults (GEN), Leukocytosis (GEN) Prescriptions: New Polyethylene Glycol 3350 [Miralax] 17 gm PO DAILY PRN #1 bottle PRN Reason: Constipation Senna + Docusate [Senna Plus Tablet] 1 tab PO BID PRN tablet PRN Reason: Constipation Amoxicillin/Potassium Clav [Amox-Clav 875-125 mg Tablet] 875 mg PO BIDWM #10 tab Continue Atenolol 25 mg PO BID #0 Ascorbic Acid [Vitamin C] 500 mg PO DAILY #0 Aspirin [Aspir 81] 81 mg PO HS #0 Multivitamin with Minerals [Multivitamins with Minerals] 1 tab PO HS #0 Omeprazole 40 mg PO BID Famciclovir [Famvir] 500 mg PO BID Losartan [Cozaar] 50 mg PO HS Levothyroxine Tab [Synthroid] 25 mcg PO DAILY Red Yeast Rice 600 mg PO BID [place]-3/Dha/Epa/Fish Oil [Fish Oil 1,000 mg Softgel] 2,000 mg PO DAILY Oxycodone/Acetaminophen 5/325 [Percocet 5/325] 1 - 2 tab PO Q4H PRN PRN Reason: Pain Cyanocobalamin (Vitamin B-12) [Vitamin B-12] 1,000 mcg PO DAILY Cholecalciferol (Vitamin D3) [Vitamin D3] 1,000 unit PO DAILY Calcium Carbonate [Caltrate] 600 mg PO DAILY fentaNYL [Fentanyl] 1 patch TD Q72H Phenytoin Sodium Extended 200 mg PO BID #0 Fenofibrate [Lofibra] 160 mg PO HS Cod Liver Oil 1 cap PO DAILY Ubidecarenone/Vit E Acet [Co Q-10 100 mg Softgel] 100 mg PO DAILY Latanoprost 1 drop EACH EYE HS Chlorpheniramine [Chlor-Trimeton] 4 mg PO BID Changed Metformin [Glucophage] 250 mg PO BID #0 Discharge Instructions/Outpatient Orders: Final Provider Discharge Instructions Location: Determined By Patient - Disposition [facility] - Attestation Attestation Narrative: 12/05/16 17:28 I have independently interviewed and examined patient prior to discharge. See my progress note for details. Medically stable for discharge to home.
[2016-12-05] MEDS ORDERED: AMOX/CLAV 875 MG/125 MG TABLET PO SCH (17:30)
[2016-12-06] MEDS ORDERED: POM LEVOTHYROXINE 50 MCG TABLET PO SCH (06:30)
== END 2016-12-05 18:20 | disposition home health service (06) ==
LOC: ED 15:19 → MED 15:19
PROVIDERS: ADMIT Hospitalist; ATTEND Hospitalist

== ENCOUNTER 2016-12-08 16:24 | Inpatient (IN) ==
[2016-12-08] MEDS ORDERED: SENNA + DOCUSATE TABLET PO PRN (20:44)
[2016-12-08] MEDS ORDERED: Oxycodone/Acetaminophen 5/325 1 TAB PO PRN (20:46)
[2016-12-08] MEDS ORDERED: HYDROMORPHONE 2 MG/ML INJECTION IVP PRN (20:46)
[2016-12-08] MEDS ORDERED: BISACODYL 10 MG SUPPOSITORY RECTALLY PRN (20:47)
[2016-12-08] MEDS ORDERED: SALIVA SUBSTITUTE MOUTHWASH 237ml MM PRN (20:48)
--- NOTE | 2016-12-08 20:56 | History & Physical Report ---
History of Present Illness Date: 12/08/16 Chief complaint: Ab pain, nausea HPI: 86 y/o male made direct admit to [facility] at the request of Dr Heredia to initiate Chemotherapy. 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 Last week underwent percutaneous biliary stent placement on 11/30 to elevate biliary obstruction. Was hospitalized at [facility] from 12/04 until 12/05 secondary to fever and leukocytosis. Since discharge, has not had recurrence of fever. Has had increasing ab pain - intractable pain yesterday. Fentanyl patch doubled, which seems to have helped. Oral drive variable. Notes nausea, but not had emesis. Bowels have been moving-no constipation or diarrhea (is using Prune juice to help bowel function). Breathing well-no cough, congestion, or SOA. Denies chest pressure or pain. Review of Systems - Constitutional Constitutional: Present: fatigue. Absent: fever(s), headache(s) - EEGAT Eyes: Absent: blurry vision, change in vision Ears: Absent: ear pain Balance: Absent: vertigo, ataxia Nose: Absent: nosebleeds Mouth/Throat: Present: dry mouth - Cardiovascular Cardiovascular: Present: edema (chronic, stable. ). Absent: chest pain, palpitations Vascular: Absent: intermittent claudication, unilateral swelling - Respiratory Respiratory: Absent: cough, dyspnea, wheezing, pain on inspiration, chest congestion, excessive phlegm production - Gastrointestinal Gastrointestinal: Present: abdominal pain, nausea. Absent: diarrhea - Genitourinary Genitourinary: Absent: dysuria, urinary frequency - Musculoskeletal Musculoskeletal: Absent: muscle cramps, muscle weakness - Neurological Neurological: Absent: focal weakness, headache(s), lack of coordination - Psychiatric Psychiatric: Absent: anxiety, behavioral changes - Endocrine Endocrine: Absent: flushing, palpitations, polydipsia, polyuria - Allergic/Immunologic Allergic/Immunologic: Absent: tongue swelling, throat swelling [facility] Patient Stated Medical History Cataracts Yes: bilateral-removed Glaucoma Yes Myocardial Infarction Yes Other Cardiology Yes: cabg 1997, 2005 stent 2013 Diabetes Mellitus Type 2 Yes Gastroesophageal Reflux Yes Disease Hiatal Hernia Yes Hx Renal Disease No Other Yes: water filled cyst Cellulitis Yes Medical History Updates: Lymphoma Surgical History: CABG 4 (1997), CABG 3 (2005), cardiac stent (2013), rotator cuff repair-left (), removal of benign right kidney cyst (1985), tonsillectomy- (childhood), percutaneous biliary stent (11/30/16) Family History: Father at 87 - hit by a train Mother had asthma - at 83 following complications of hip surgery Bother of old age Brother of pancreatic CA Sister of leukemia Brother of Alzheimer's Sis at 83 of complications of bowel surgery - Social History Smoking status: Never smoker Current occupational status: retired Social history: Dr Sharma PCP. Dr Kim Vargas Urology. Dr Hensley Cardiology. Dr Kramer ophthalmology. Dr Heredia ONC. Medications Home Medications Medication Instructions Recorded Confirmed Type Ascorbic Acid [Vitamin C] 500 mg PO DAILY #0 09/18/15 12/08/16 History Aspirin [Aspir 81] 81 mg PO HS #0 09/18/15 12/08/16 History Atenolol 25 mg PO BID #0 09/18/15 12/08/16 History Multivitamin with Minerals 1 tab PO HS #0 09/18/15 12/08/16 History [Multivitamins with Minerals] Phenytoin Sodium Extended 200 mg PO BID #0 09/18/15 12/08/16 History Calcium Carbonate [Caltrate] 600 mg PO DAILY 12/04/16 12/08/16 History Chlorpheniramine [Chlor-Trimeton] 4 mg PO BID 12/04/16 12/08/16 History Cholecalciferol (Vitamin D3) 1,000 unit PO DAILY 12/04/16 12/08/16 History [Vitamin D3] Cod Liver Oil 1 cap PO DAILY 12/04/16 12/08/16 History Cyanocobalamin (Vitamin B-12) 1,000 mcg PO DAILY 12/04/16 12/08/16 History [Vitamin B-12] Famciclovir [Famvir] 500 mg PO BID 12/04/16 12/08/16 History Fenofibrate [Lofibra] 160 mg PO HS 12/04/16 12/08/16 History Latanoprost 1 drop EACH EYE HS 12/04/16 12/08/16 History Levothyroxine Tab [Synthroid] 25 mcg PO DAILY 12/04/16 12/08/16 History Losartan [Cozaar] 50 mg PO HS 12/04/16 12/08/16 History [place]-3/Dha/Epa/Fish Oil [Fish Oil 2,000 mg PO DAILY 12/04/16 12/08/16 History 1,000 mg Softgel] Omeprazole 40 mg PO BID 12/04/16 12/08/16 History Oxycodone/Acetaminophen 5/325 1 - 2 tab PO Q4H PRN 12/04/16 12/08/16 History [Percocet 5/325] Red Yeast Rice 600 mg PO BID 12/04/16 12/08/16 History Ubidecarenone/Vit E Acet [Co Q-10 100 mg PO DAILY 12/04/16 12/08/16 History 100 mg Softgel] fentaNYL [Fentanyl] 1 patch TD Q72H 12/04/16 12/08/16 History Allergies Allergy/AdvReac Type Severity Reaction Status Date / Time No Known Allergies Allergy Verified 12/08/16 18:24 Exam Vital Signs: Temperature 98.1 F 12/08/16 18:00 Pulse Rate 64 12/08/16 18:00 Respiratory Rate 28 H 12/08/16 18:00 Blood Pressure 115/59 12/08/16 18:00 Pulse Oximetry 95 12/08/16 18:00 Height/Weight/BMI: Height 1.65 m Weight 59.4 kg Body Mass Index 21.7 - Constitutional Present: no acute distress, well nourished, well developed, cooperative. Absent : agitated, somnolent, obtunded - Routine HEENT Exam Head: Present: normocephalic, atraumatic Eye: Present: EOMI, PERRL ENT: Present: mucous membranes moist - Routine Neck Exam Present: full ROM, trachea midline - Routine Respiratory Exam Present: CTA bilaterally. Absent: respiratory distress, rhonchi, stridor, wheezes, crackles - Routine Cardiovascular Exam Present: RRR, no murmur - Routine Abdominal Exam Present: soft, normoactive bowel sounds, non distended, non tender Comments: percutaneous drain in RUQ - Routine Extremities Exam Present: edema (+1 BLE ), pulses intact, joint swelling. Absent: cyanosis, clubbing, non tender - Routine Skin Exam Present: intact, dry, warm - Routine Neurological Exam Present: alert, oriented X3, CN II-XII intact, moving all extremities, vision grossly intact, hearing grossly intact. Absent: motor deficit, altered mental status - Routine Psychiatric Exam Present: normal affect, normal thought process, cooperative, good insight, good judgment. 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 Consult with Dr Heredia for Oncological evaluation and chemotherapy recommendations and management. PICC line for chemo. Start TPN for nutritional support due to PCM. Continue pain control - home medications, add IV dilaudid prn. Zofran for nausea control. Monitor blood sugars. SCD for DVT prevention. Discussed code status with patient. Request DNR. Order written. Care to return to Dr Sharma at time of discharge from [facility]. Hospital Course Summary Disclaimer: The visit summary below is not to be considered part of the above Progress Note. 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 Consult with Dr Heredia for Oncological evaluation and chemotherapy recommendations and management. PICC line for chemo. Start TPN for nutritional support due to PCM. Continue pain control - home medications, add IV dilaudid prn. Zofran for nausea control. Monitor blood sugars. SCD for DVT prevention. Discussed code status with patient. Request DNR. Order written. Care to return to Dr Sharma at time of discharge from [facility].
[2016-12-08] MEDS ORDERED: NON-FORMULARY MEDICATION 1 EACH EACH (Omeprazole [Omeprazole] 40 MG) PO SCH (21:00)
[2016-12-08] MEDS ORDERED: [UNRECOGNIZED DRUG - OTHER] PO SCH (21:00)
[2016-12-08] MEDS ORDERED: MULTIVITAMIN WITH MINERALS PO SCH (21:00)
[2016-12-08] MEDS: LATANOPROST 0.005% EYE DROPS 2.5ml EACH EYE SCH (21:32)
[2016-12-08] MEDS: PHENYTOIN 100 MG CAPSULE PO SCH (21:32)
[2016-12-08] MEDS: LOSARTAN 50 MG TABLET PO SCH (21:32)
[2016-12-08] MEDS: ASPIRIN *EC* 81 MG TABLET PO SCH (21:32)
[2016-12-08] MEDS: ATENOLOL 25 MG TABLET PO SCH (21:33)
[2016-12-08] MEDS: FENOFIBRATE 160 MG TABLET PO SCH (21:33)
[2016-12-08] MEDS: FAMCICLOVIR 500 MG TABLET PO SCH (21:33)
[2016-12-09] MEDS: LEVOTHYROXINE 25 MCG TABLET PO SCH (06:22)
[2016-12-09] MEDS: OMEPRAZOLE 20 MG CAPSULE PO SCH (06:31)
--- NOTE | 2016-12-09 07:54 | Pharmacy Consult-TPN/PPN ---
Pharmacy Consult-TPN/PPN - Laboratory Information Chemistry Turbidity < 20 (0-20) 12/09/16 03:53 Sodium 137 MEQ/L (134-144) 12/09/16 03:53 Potassium 3.8 MEQ/L (3.6-5) 12/09/16 03:53 Chloride 103 MEQ/L (98-107) 12/09/16 03:53 Carbon Dioxide 23 MEQ/L (22-30) 12/09/16 03:53 Anion Gap 11 MEQ/L (5-15) 12/09/16 03:53 BUN 14.0 MG/DL (9-20) 12/09/16 03:53 Creatinine 0.6 MG/DL (0.8-1.5) L D 12/09/16 03:53 GFR Calculation 128 12/09/16 03:53 BUN/Creatinine Ratio 23 RATIO (6-26) 12/09/16 03:53 Glucose 114 MG/DL (75-110) H 12/09/16 03:53 Glucometer 135 mg/dL (65-110) 12/09/16 06:22 Calculated Osmolality 266 MOSM/KG (261-280) 12/09/16 03:53 Calcium 8.8 MG/DL (8.4-10.2) 12/09/16 03:53 Phosphorus 3.2 MG/DL (2.5-4.5) 12/08/16 17:58 Magnesium 1.7 MG/DL (1.6-2.3) 12/08/16 17:58 Total Bilirubin 0.80 MG/DL (0.20-1.30) 12/08/16 17:58 Icterus Index < 2 (0-7) 12/09/16 03:53 AST 39 U/L (17-59) 12/08/16 17:58 ALT 42 U/L (21-72) 12/08/16 17:58 Alkaline Phosphatase 189 U/L (38-126) H 12/08/16 17:58 Total Protein 7.1 G/DL (6.3-8.2) 12/08/16 17:58 Albumin 3.5 G/DL (3.5-5.0) 12/08/16 17:58 Globulin 3.6 G/DL (2.4-3.6) 12/08/16 17:58 Albumin/Globulin Ratio 1.0 RATIO (1.1-2.2) L 12/08/16 17:58 Prealbumin 11.7 MG/DL (17.6-36.0) L 12/08/16 17:58 Specimen Hemolysis < 15 (0-25) 12/09/16 03:53 Intake and Output 12/08/16 12/09/16 12/10/16 06:59 06:59 06:59 Intake Total 0 / 0 Output Total 350 / 350 Balance -350 / -350 Weight 59.4 kg Intake: Oral 0 / 0 Output: Urine 350 / 350 Other: Urine Appearance Clear Urine Color Dark Yellow Urine Odor Normal Drain Type Right Upper Abdomen Biliary NIDIA is a 86 yo male that has been admitted for chemotherapy. The diagnosis is lymphadenopathy: Lymphoma, Non-Hodgkins. Dr. Kirby ordered a TPN consult with a starting rate of 80 ml/hr. In reviewing the labs for NIDIA, his electrolytes and proteins are good, so I have started a standard TPN with Multivitamins and Trace Minerals. Also I have started a daily 20% Fat Emulsion 100 ml. I have also ordered a CMP for tomorrow 12/10. Thanks for the TPN Consult, Trung Barton, Pharmacist.
[2016-12-09] MEDS ORDERED: METFORMIN 500 MG TABLET PO SCH (08:00)
[2016-12-09] MEDS ORDERED: NON-FORMULARY MEDICATION 1 EACH EACH (Cholecalciferol (Vitamin D3) [Vitamin D3] 1,000 UNIT PO SCH (09:00)
[2016-12-09] MEDS ORDERED: NON-FORMULARY MEDICATION 1 EACH EACH (Cyanocobalamin (Vitamin B-12) [Vitamin B-12] 1,000 M PO SCH (09:00)
[2016-12-09] MEDS: ASCORBIC ACID 500 MG TABLET PO SCH (09:17)
[2016-12-09] MEDS: ALLOPURINOL 300 MG TABLET PO SCH (09:18)
[2016-12-09] MEDS: PredniSONE 20 MG TABLET PO SCH (09:18)
[2016-12-09] MEDS: CYANOCOBALAMIN (B-12) 500mcg TABLET PO SCH (09:18)
[2016-12-09] MEDS: ATENOLOL 25 MG TABLET PO SCH ×2 (09:19→22:09)
[2016-12-09] MEDS: PHENYTOIN 100 MG CAPSULE PO SCH ×2 (09:19→22:10)
[2016-12-09] MEDS: MULTI-VITAMIN + MINERAL TABLET PO SCH (09:21)
[2016-12-09] MEDS: CALCIUM CARBONATE 600 MG TABLET PO SCH (09:21)
[2016-12-09] MEDS: FAMCICLOVIR 500 MG TABLET PO SCH ×2 (09:22→22:09)
[2016-12-09] MEDS ORDERED: DEXAMETHASONE IV SCH (10:00)
[2016-12-09] MEDS ORDERED: NS IV SCH (10:00)
[2016-12-09] MEDS ORDERED: GRANISETRON 1mg/ml INJECTION IVP SCH (10:00)
[2016-12-09] MEDS ORDERED: ACETAMINOPHEN 325 MG TABLET PO SCH (10:00)
[2016-12-09] MEDS ORDERED: DiphenhydrAMINE 50 MG/ML INJECTION IVP SCH (10:00)
[2016-12-09] MEDS ORDERED: DiphenhydrAMINE 50 MG/ML INJECTION IVP PRN (10:14)
[2016-12-09] MEDS ORDERED: HYDROCORTISONE SOD SUCC 100mg/2ml INJECTION IVP PRN (10:15)
[2016-12-09] MEDS ORDERED: METHYLPREDNISOLONE SOD SUCC 125mg/2ml INJECTION IVP PRN (10:17)
[2016-12-09] MEDS ORDERED: RITUXIMAB IV ONE (10:30)
[2016-12-09] MEDS ORDERED: NS IV ONE (10:30)
[2016-12-09] MEDS: MULTI-VIT INFUSION 10 ML, MULTI-TRACE ELEMENTS 1 ML in TPN - STANDARD FORMULA 2,000 ML IV SCH (10:33)
[2016-12-09] MEDS ORDERED: DEXTROSE 50% SYRINGE 50ml (1 AMP) IVP PRN (10:42)
[2016-12-09] MEDS ORDERED: GLUCOSE ORAL GEL 40% 37.5gm PO PRN (10:42)
--- NOTE | 2016-12-09 11:49 | Consult Note ---
Oncology HPI - Data of Consult Patient: known to practice within the last 3 years Consult date: 12/09/16 Requesting Physician: Aron Kirby MD Primary Care Provider: Danita Sharma MD Family Provider: Danita Sahrma MD - Consult Narrative Reason for consult: Chemotherapy History of present illness: Patient has been seen by Dr. Heredia he had a CT scan was done on 11/06/2016 that shows a. Pancreatic soft tissue mass and adenopathy with additional mesenteric adenopathy encasing the superior mesenteric artery. There was also lesions within the spleen there was left intrahepatic bile duct obstruction of uncertain chronicity in addition there was a lytic lesion within the left iliac bone. Here underwent endoscopic ultrasound directed fine-needle aspiration of the mass that was suggestive of lymphoma but not diagnosis in mid November. He was admitted at [facility] the week of 11/27/16 with percutaneous needle biopsy of the mass along with bone marrow biopsy. Percutaneous needle biopsy revealed grade 1-[address] Heredia was aware of these findings on and discuss them with the patient. He is elected to undergo chemotherapy with Rituxan Cytoxan vincristine prednisone and was admitted for the that chemotherapy. He was also admitted on 12/04/16 with fever. Cultures were negative hemoglobin did drop to 7.3 on 12/05/16. Review of Systems - Constitutional Constitutional: Present: lethargy, weakness, weight loss - EENT Eyes: Present: change in vision, other (proptosis of right eye) Ears: Present: other (hearing loss, wears hearing aids) Nose: Present: allergies (sneezing), other Mouth/Throat: Absent: sores, ulcers - Cardiovascular Cardiovascular: Absent: chest pain, palpitations - Respiratory Respiratory: Present: cough (with sputum production). Absent: hemoptysis - Gastrointestinal Gastrointestinal: Present: abdominal pain, constipation, dyspepsia, nausea - Musculoskeletal Musculoskeletal: Present: abnormal gait. Absent: arthralgias - Integumentary/Breasts Breasts: skin changes (of dorsum of hands) - Neurological Neurological: Present: abnormal gait, weakness - Psychiatric Psychiatric: Present: anxiety, auditory hallucinations - Hematologic/Lymphatic Hematologic/Lymphatic: Present: anemia, lymphadenopathy - Allergic/Immunologic Allergic/Immunologic: Present: seasonal rhinorrhea. Absent: urticaria PFSH Patient Stated Medical History Cataracts Yes: bilateral-removed Glaucoma Yes Myocardial Infarction Yes Other Cardiology Yes: cabg 1997, 2005 stent 2013 Diabetes Mellitus Type 2 Yes Gastroesophageal Reflux Yes Disease Hiatal Hernia Yes Hx Renal Disease No Other Yes: water filled cyst Cellulitis Yes Medical History Updates: Lymphoma. CAD. GERD. 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 Currently second marriage of 2 years. First August [birth year]2013 from cancer. Medications Home Medications Medication Instructions Recorded Confirmed Type Ascorbic Acid [Vitamin C] 500 mg PO DAILY #0 09/18/15 12/08/16 History Aspirin [Aspir 81] 81 mg PO HS #0 09/18/15 12/08/16 History Atenolol 25 mg PO BID #0 09/18/15 12/08/16 History Multivitamin with Minerals 1 tab PO HS #0 09/18/15 12/08/16 History [Multivitamins with Minerals] Phenytoin Sodium Extended 200 mg PO BID #0 09/18/15 12/08/16 History Calcium Carbonate [Caltrate] 600 mg PO DAILY 12/04/16 12/08/16 History Chlorpheniramine [Chlor-Trimeton] 4 mg PO BID 12/04/16 12/08/16 History Cholecalciferol (Vitamin D3) 1,000 unit PO DAILY 12/04/16 12/08/16 History [Vitamin D3] Cod Liver Oil 1 cap PO DAILY 12/04/16 12/08/16 History Cyanocobalamin (Vitamin B-12) 1,000 mcg PO DAILY 12/04/16 12/08/16 History [Vitamin B-12] Famciclovir [Famvir] 500 mg PO BID 12/04/16 12/08/16 History Fenofibrate [Lofibra] 160 mg PO HS 12/04/16 12/08/16 History Latanoprost 1 drop EACH EYE HS 12/04/16 12/08/16 History Levothyroxine Tab [Synthroid] 25 mcg PO DAILY 12/04/16 12/08/16 History Losartan [Cozaar] 50 mg PO HS 12/04/16 12/08/16 History [place]-3/Dha/Epa/Fish Oil [Fish Oil 2,000 mg PO DAILY 12/04/16 12/08/16 History 1,000 mg Softgel] Omeprazole 40 mg PO BID 12/04/16 12/08/16 History Oxycodone/Acetaminophen 5/325 1 - 2 tab PO Q4H PRN 12/04/16 12/08/16 History [Percocet 5/325] Red Yeast Rice 600 mg PO BID 12/04/16 12/08/16 History Ubidecarenone/Vit E Acet [Co Q-10 100 mg PO DAILY 12/04/16 12/08/16 History 100 mg Softgel] fentaNYL [Fentanyl] 1 patch TD Q72H 12/04/16 12/08/16 History Allergies Allergy/AdvReac Type Severity Reaction Status Date / Time No Known Allergies Allergy Verified 12/08/16 18:24 Exam Vital signs: Temperature 97.7 F 12/09/16 11:23 Pulse Rate 64 12/09/16 11:23 Respiratory Rate 16 12/09/16 11:23 Blood Pressure 107/56 12/09/16 11:23 Pulse Oximetry 92 12/09/16 11:23 Narrative: Patient alert in no acute distress - Constitutional no acute distress, average body habitus, thin - Routine HEENT Exam Head: Present: normocephalic. Absent: facial swelling Eye: Present: EOMI, proptosis (right eye) ENT: Present: mucous membranes moist Nose: moist mucous membranes Throat: normal inspection - Routine Neck Exam Present: supple, lymphadenopathy (possible left supraclavicular lymph node) - Routine Respiratory Exam Present: CTA bilaterally. Absent: dyspnea, rales - Routine Cardiovascular Exam Present: RRR, no murmur - Routine Abdominal Exam Present: soft, non distended, organomegaly (fullness over the spleen) Comments: Biliary drain draining bile present in the mid abdomen - Routine Back/Spine/Pelvis Exam Back/Spine: Absent: muscle spasm - Routine Skin Exam Present: dry, warm, vitiligo (on dorsum of hands) - Routine Neurological Exam Present: alert, oriented X3, normal speech - Routine Psychiatric Exam Present: normal affect, normal thought process Oncology Results - Labs CBC & Chem 7: 12/09/16 03:53 12/09/16 03:53 Labs: Short CBC 12/08/16 12/09/16 Range/Units 17:58 03:53 WBC 9.6 7.7 (4.5-11.0) T/MM3 Hgb 9.4 L 8.1 L D (13.5-17.5) GM/DL Hct 29.0 L 25.5 L D (41-53) % Plt Count 658 H D 530 H (130-400) T/MM3 BMP 12/08/16 12/09/16 17:58 03:53 Sodium 136 137 Potassium 3.8 3.8 Chloride 101 103 Carbon Dioxide 23 23 BUN 17.0 14.0 Creatinine 0.8 0.6 L D Glucose 150 H 114 H Calcium 9.5 8.8 Liver Function 12/08/16 Range/Units 17:58 Total Bilirubin 0.80 (0.20-1.30) MG/DL AST 39 (17-59) U/L ALT 42 (21-72) U/L Alkaline Phosphatase 189 H (38-126) U/L Albumin 3.5 (3.5-5.0) G/DL Urine 12/09/16 Range/Units 00:09 Urine Color Yellow (YELLOW) Urine Clarity Sl cloudy Urine pH 5.5 (5.0-8.0) Ur Specific [place] 1.020 (1.015-1.025) Urine Protein Trace A (NEGATIVE) Urine Glucose (UA) Negative (NEGATIVE) Laboratory Tests 12/08/16 12/08/16 12/09/16 17:58 17:58 03:53 WBC 9.6 7.7 Hgb 9.4 L 8.1 L D Plt Count 658 H D 530 H Creatinine Total Bilirubin 0.80 AST 39 ALT 42 Alkaline Phosphatase 189 H 12/09/16 03:53 WBC Hgb Plt Count Creatinine 0.6 L D Total Bilirubin AST ALT Alkaline Phosphatase - Imaging and Cardiology CT scan - abdomen Status: image reviewed by me Additional comments: AlinesilvanoRoss :1930 Sex:M Status: Finalized ACC:[id number] Exam DATE:2016-11-06 15:00:[address] [place] [address] CT Scan Report Signed Patient: Ross Hurtado MR#: [id number] : 1930 Age/Sex: 86 / M ADM Date: 11/06/16 Loc: [facility].CT DIS Date: = = = = = = = = = = = = = = = = = = = = = = = = = = = = = = = = = = = = = = = = = = = = = = = = = = = = = = = = = = = Date of Exam: 11/06/16 Ordering Provider: Danita Sharma MD Type of Exam(s): CT chest/abd w con Reason for Exam(s): K44.9 Diaphragmatic hernia without obstruction or Indication: K44.9 Diaphragmatic hernia without obstruction or PROCEDURE: CT chest/abd w con: Encounter: Initial Comparison: None Technique: Axial CT images were performed through the chest and abdomen after the administration of intravenous contrast. Coronal and sagittal two-dimensional reformats. Automated Exposure Control and Iterative Reconstruction dose reducing techniques were utilized. Contrast: Omnipaque 300 89 mL Findings: Chest: Mild subpleural fibrotic change and scarring in the lung bases. No consolidative pneumonia. No pleural effusion or pneumothorax. No worrisome pulmonary nodules or masses. The central airways are patent. The thyroid gland is unremarkable. No axillary or mediastinal adenopathy. Heart size is normal. Prior CABG vessels are unremarkable. I do not see any evidence of a diaphragmatic hernia. Abdomen: The liver shows left sided bile duct dilatation of uncertain chronicity. No obvious bile duct filling defect or stone. The gallbladder appears grossly normal. No clear evidence for any obstructing stone or mass. There are abnormal large low-attenuation foci within the spleen occupying the majority of the splenic parenchyma. Senior Staff Consultant lesion on axial image #18 measures 1.3 x 7.1 cm in size. There is also perisplenic adenopathy near the pancreatic tail. It is somewhat difficult to separate the pancreatic tail from the abnormal mesenteric mass. This region measures 7.7 x 3.5 cm on axial image #22. The pancreatic head and body are fatty atrophied. The adrenal glands are grossly normal. There is peripancreatic adenopathy and abnormal soft tissue encasing the SMA best seen on axial image #32. There are bilateral renal cysts. Metallic clips in the right renal hilum. Recommend correlation with patient's surgical history. Additional mesenteric confluent adenopathy seen below the pancreas on axial image #35 measuring 5 x 6.2 cm in diameter encasing mesenteric vessels. Atherosclerotic plaque in the abdominal aorta. No evidence of a bowel obstruction within the visualized small and large bowel loops in the abdomen. Bone windows show a lytic focus in the left iliac bone on axial image #55 measuring 2.9 cm in diameter. Bilateral L5 spondylolysis. No other obvious lytic or blastic bony lesions. Impression: 1. Peripancreatic mass and adenopathy with additional mesenteric adenopathy encasing the SMA. Given the splenic lesions present, findings are most suspicious for lymphoma. Metastatic pancreatic and gastric cancer would also be within the differential. Oncology consultation is recommended. Endoscopic transgastric biopsy of the pancreatic tail area mass would probably be the safest route for obtaining a tissue diagnosis as the mesenteric adenopathy is strongly concentrated around prominent mesenteric arteries and veins. 2. Left intrahepatic bile duct obstruction of uncertain chronicity. If considerations would include bile duct stone, sludge or neoplasm/metastasis. ERCP may be helpful for further evaluation. 3. Possible lytic metastasis versus unrelated bone cyst in the left iliac bone. Nuclear medicine bone scan may be helpful for further evaluation. Quinn findings were discussed with the ordering physician at 1620 on November 06, 2016 . Ross Hurtado Magdalena :1930 Sex:M Status: Finalized ACC:[id number] Exam DATE:2016-12-08 08:14:00 [place] [address] PET Report Signed Patient: Ross Hurtado MR#: [id number] : 1930 Age/Sex: 86 / M ADM Date: 12/08/16 Loc: [facility]IN[facility].PET DIS Date: = = = = = = = = = = = = = = = = = = = = = = = = = = = = = = = = = = = = = = = = = = = = = = = = = = = = = = = = = = = Date of Exam: 12/08/16 Ordering Provider: Yanci Heredia MD Type of Exam(s): PET skull to mid thigh init Reason for Exam(s): C96.Z LYMPHOMA Indication: C96.Z LYMPHOMA PROCEDURE: PET skull to mid thigh init: Encounter: Initial Comparison: CT chest, abdomen and pelvis dated November 06, 2016 Technique: 11.7 mCi of F-18 FDG was administered intravenously via the left antecubital fossa. Approximately 60 minutes later 3D PET/CT imaging was performed from the skull base through the mid thighs. The CT images are for attenuation correction purposes only. Findings: No areas of abnormal metabolic uptake seen within the skull base. Physiologic regions of uptake and artifact from prior dental restorations. FDG avid left supraclavicular adenopathy. Node at location -655.5 shows an SUV max of 2.9. Single minimally avid left superior paratracheal node also seen. No additional areas of adenopathy seen in the chest. Physiologic myocardial uptake. No avid pulmonary nodules or masses. Pulmonary fibrotic changes. Interval placement of a left sided internal/external biliary drain. Enlarged abnormal spleen is again seen with multifocal hypermetabolism, particularly in the posterior inferior aspect with a lesion containing an SUV max of 6.9 at location -901.5. Adenopathy near the pancreatic tail also is quite FDG avid showing an SUV max of 11.7 at this same location. Retroperitoneal adenopathy also shows increased FDG uptake. Mesenteric adenopathy around the SMA also shows increased FDG uptake with an SUV max of 13.5 at location -958.5. Normal genitourinary uptake and bowel uptake. The cystic lesion in the left iliac bone shows no FDG uptake and is probably a benign bone cyst. No areas of abnormal skeletal uptake appreciated. Impression: Hypermetabolic abdominal adenopathy, splenic lesions, and left supraclavicular adenopathy compatible with the provided diagnosis of lymphoma. No evidence for osseous involvement. . 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 With difficult diagnosis as fine-needle aspirate was nondiagnostic and telephone call to Dr. Heredia about most recent percutaneous biopsy did describe necrosis which could possibly move into a grade 3 category. Patient's comorbid conditions prevent aggressive therapy therefore Dr. Heredia has elected to begin R-CVP. Orders have been written. Counts are adequate for this therapy. Bilirubin0.8 alkaline phosphatase slightly elevated at 189 LDH is normal at 522. Allopurinol instituted for prevention of tumor lysis. Currently on Famvir for shingles prophylaxis. Will watch for tumor lysis with lab uric acid and LDH tomorrow. 2. Right eye proptosis of uncertain etiology 3. Coronary artery disease with multiple procedures in past 4. Protein calorie malnutrition secondary to lymphomatosis involvement and probable mesenteric ischemia from the masses pressing on the SMA Recommendations: Chemotherapy today orders written Allopurinol for prevention of tumor lysis Follow lab Thank you very much for allowing the opportunity to his being in the care of this patient
[2016-12-09] MEDS ORDERED: CYCLOPHOSPHAMIDE IV SCH (14:00)
[2016-12-09] MEDS ORDERED: D5W IV SCH (14:00)
--- NOTE | 2016-12-09 14:42 | Progress Note ---
Subjective: Feeling okay this morning, anxious to "get on with it" and waiting for chemotherapy. Denies new complaints, eating some, abdomen soft. Bili drain functioning. Planned R-CVP per Dr. Heredia. No dyspnea, fevers, chills. Objective Vital signs: Temperature 97.7 F 12/09/16 11:23 Pulse Rate 64 12/09/16 11:23 Respiratory Rate 16 12/09/16 11:23 Blood Pressure 107/56 12/09/16 11:23 Pulse Oximetry 92 12/09/16 11:23 Rhythm: Normal Sinus Rhythm Height/Weight/BMI: Height 1.65 m Weight 59.4 kg Body Mass Index 21.7 - Constitutional Present: no acute distress, thin - Routine HEENT Exam Head: Present: normocephalic, atraumatic Eye: Present: EOMI, PERRL Comments: right eye with proptosis adentulous currently - Routine Respiratory Exam Present: CTA bilaterally. Absent: rales, rhonchi - Routine Cardiovascular Exam Present: RRR. Absent: murmur - Routine Abdominal Exam Present: soft, non distended, non tender Comments: bili drain intact RUQ - Routine Extremities Exam Present: pulses intact, normal capillary refill. Absent: edema - Routine Skin Exam Present: intact, dry, warm. 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 Chemo per Dr. Heredia (Dr. Barton covering today) with R-CVP (rituxan, cytoxan, vincristine, pred) starting today PICC line has been placed and is functioning well Monitor closely for TLS; uric acid and LDH ordered with AM labs Check CMP, phos, Mg, CBC in AM Continue home meds for DM, hypothyroidism and CAD; monitor blood sugars Allow po intake as tolerated Monitor blood counts, transfuse PRBC if Hb <7 Start lovenox prophylactic dosing for DVT prevention Will need to remain inpatient for further monitoring while chemo initiated. Hospital Course Summary Disclaimer: The visit summary below is not to be considered part of the above Progress Note. 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 Consult with Dr Heredia for Oncological evaluation and chemotherapy recommendations and management. PICC line for chemo. Start TPN for nutritional support due to PCM. Continue pain control - home medications, add IV dilaudid prn. Zofran for nausea control. Monitor blood sugars. SCD for DVT prevention. Discussed code status with patient. Request DNR. Order written. Care to return to Dr Sharma at time of discharge from [facility]. 12/09/16 Continue TPN per pharmacy for nutrition support. Chemo per Dr. Heredia (Dr. Barton covering today) with R-CVP (rituxan, cytoxan, vincristine, pred) starting today PICC line has been placed and is functioning well Monitor closely for TLS; uric acid and LDH ordered with AM labs Check CMP, phos, Mg, CBC in AM Continue home meds for DM, hypothyroidism and CAD; monitor blood sugars Allow po intake as tolerated Monitor blood counts, transfuse PRBC if Hb <7 Start lovenox prophylactic dosing for DVT prevention
[2016-12-09] MEDS ORDERED: VINCRISTINE IVP SCH (15:00)
[2016-12-09] MEDS ORDERED: NS FLUSH BAG 500ml IV PRN (16:38)
[2016-12-09] MEDS ORDERED: SALINE FLUSH 10ml SYRINGE IV PRN (16:38)
[2016-12-09] MEDS: FAT EMULSION 20% 100 ML BAG IV SCH (17:03)
[2016-12-09] MEDS: INSULIN ASPART 100unit/ml INJECTION SQ PRN (19:47)
[2016-12-09] MEDS: FENOFIBRATE 160 MG TABLET PO SCH (22:10)
[2016-12-09] MEDS: ASPIRIN *EC* 81 MG TABLET PO SCH (22:10)
[2016-12-09] MEDS: LATANOPROST 0.005% EYE DROPS 2.5ml EACH EYE SCH (22:10)
[2016-12-09] MEDS: LOSARTAN 50 MG TABLET PO SCH (22:10)
[2016-12-10] MEDS: INSULIN ASPART 100unit/ml INJECTION SQ PRN ×3 (00:18→21:26)
[2016-12-10] MEDS: OMEPRAZOLE 20 MG CAPSULE PO SCH (06:23)
[2016-12-10] MEDS: LEVOTHYROXINE 25 MCG TABLET PO SCH (06:23)
[2016-12-10] MEDS: ONDANSETRON 4 MG/2 ML INJECTION IVP PRN (06:25)
[2016-12-10] MEDS: ASCORBIC ACID 500 MG TABLET PO SCH (08:38)
[2016-12-10] MEDS: CYANOCOBALAMIN (B-12) 500mcg TABLET PO SCH (08:38)
[2016-12-10] MEDS: ATENOLOL 25 MG TABLET PO SCH ×2 (08:38→20:34)
[2016-12-10] MEDS: PredniSONE 20 MG TABLET PO SCH (08:38)
[2016-12-10] MEDS: ALLOPURINOL 300 MG TABLET PO SCH (08:38)
[2016-12-10] MEDS: MULTI-VITAMIN + MINERAL TABLET PO SCH (08:38)
[2016-12-10] MEDS: PHENYTOIN 100 MG CAPSULE PO SCH ×2 (08:39→20:34)
[2016-12-10] MEDS: CALCIUM CARBONATE 600 MG TABLET PO SCH (08:39)
[2016-12-10] MEDS: FAMCICLOVIR 500 MG TABLET PO SCH ×2 (08:39→20:34)
--- NOTE | 2016-12-10 09:42 | Pharmacy Consult-TPN/PPN ---
Pharmacy Consult-TPN/PPN - Laboratory Information Chemistry Turbidity < 20 (0-20) 12/10/16 05:22 Sodium 136 MEQ/L (134-144) 12/10/16 05:22 Potassium 3.8 MEQ/L (3.6-5) 12/10/16 05:22 Chloride 105 MEQ/L (98-107) 12/10/16 05:22 Carbon Dioxide 24 MEQ/L (22-30) 12/10/16 05:22 Anion Gap 7 MEQ/L (5-15) 12/10/16 05:22 BUN 17.0 MG/DL (9-20) 12/10/16 05:22 Creatinine 0.6 MG/DL (0.8-1.5) L 12/10/16 05:22 GFR Calculation 128 12/10/16 05:22 BUN/Creatinine Ratio 28 RATIO (6-26) H 12/10/16 05:22 Glucose 231 MG/DL (75-110) H 12/10/16 05:22 Glucometer 273 mg/dL (65-110) 12/10/16 06:03 Calculated Osmolality 271 MOSM/KG (261-280) 12/10/16 05:22 Uric Acid 2.2 MG/DL (3.5-8.5) L 12/10/16 05:22 Calcium 8.9 MG/DL (8.4-10.2) 12/10/16 05:22 Phosphorus 3.2 MG/DL (2.5-4.5) 12/08/16 17:58 Magnesium 1.7 MG/DL (1.6-2.3) 12/08/16 17:58 Total Bilirubin 0.60 MG/DL (0.20-1.30) 12/10/16 05:22 Icterus Index < 2 (0-7) 12/10/16 05:22 AST 36 U/L (17-59) 12/10/16 05:22 ALT 38 U/L (21-72) 12/10/16 05:22 Alkaline Phosphatase 150 U/L (38-126) H 12/10/16 05:22 Lactate Dehydrogenase 1218 U/L (313-618) H 12/10/16 05:22 Total Protein 5.5 G/DL (6.3-8.2) L 12/10/16 05:22 Albumin 2.6 G/DL (3.5-5.0) L 12/10/16 05:22 Globulin 2.9 G/DL (2.4-3.6) 12/10/16 05:22 Albumin/Globulin Ratio 0.9 RATIO (1.1-2.2) L 12/10/16 05:22 Prealbumin 11.7 MG/DL (17.6-36.0) L 12/08/16 17:58 Specimen Hemolysis < 15 (0-25) 12/10/16 05:22 Intake and Output 12/09/16 12/10/16 12/11/16 06:59 06:59 06:59 Intake Total 0 / 0 1782.500 / 1782.500 Output Total 350 / 350 1350 / 1350 Balance -350 / -350 432.500 / 432.500 Weight 59.4 kg 59.4 kg 61.3 kg Intake: IV 932.500 / 932.500 Cytoxan 1,250 mg In 250 / 250 Dextrose 5% in Water 250 ml @ 350 mls/hr IV 1400 [facility] Rx#:[id number] Decadron 10 mg In Normal 52.5 / 52.5 Saline 50 ml @ 157.5 mls/ hr IV .Q20M [facility] Rx#: [id number] Rituxan 630 mg In Normal 630.000 / 630.000 Saline 567 ml @ 50 mls/hr IV [facility] Rx#:[id number] Oral 0 / 0 850 / 850 Output: Urine 350 / 350 1325 / 1325 Wound Drainage 25 / 25 Right Upper Abdomen 25 / 25 Other: Urine Appearance Clear Clear Urine Color Dark Yellow Yellow Urine Odor Normal Normal Drain Type Right Upper Abdomen Biliary bag # Voids 5 - Consult Information Lylola WNL. Will continue standard TPN at 80 mls/hr. Post-chemotherapy patient who has renal panel and serum magnesium ordered tomorrow. Pharmacy to follow and adjust TPN if necessary. Thank you.
--- NOTE | 2016-12-10 09:56 | XRay Report ---
Indication: PICC placement PROCEDURE: XR chest post-procedure 1V: Encounter: Initial Comparison: December 04, 2016 Findings: New left PICC line in place with the tip projecting over the mid SVC. Lungs are otherwise stable with increased linear markings in both mid to lower lung jeffery. No pneumothorax. Cardiomediastinal contours are stable. Impression: New left PICC line tip projects over the mid SVC. There is a preliminary report by virtual radiologic. .
--- NOTE | 2016-12-10 10:49 | Progress Note ---
Oncology Subjective Patient did well with chemotherapy yesterday. No nausea or vomiting. He is having pain in his neck last week that improved after giving double dose of fentanyl. He felt like it was chronic in his neck. Will obtain MRI for further evaluation Review of systems: Gen.: Negative for fever or chills, malaise Eyes: Negative eye discharge, eye pain ENT: Negative for nosebleeds, mouth sores Lymph: Negative enlarged lymph nodes, no night sweats Respiratory: Negative for cough, shortness of breath, hemoptysis, Cardiac: Negative for chest pain, palpitations, or swelling GI: Negative for nausea, negative for vomiting, negative for diarrhea Genitourinary: No urgency, no dysuria, no hematuria Musculoskeletal: Positive for weakness, no joint pain Neurologic: Negative for headache, negative for focal weakness, negative for numbness, positive for confusion Exam Vital signs: Temperature 98.7 F 12/10/16 07:25 Pulse Rate 66 12/10/16 07:25 Respiratory Rate 16 12/10/16 07:25 Blood Pressure 117/57 12/10/16 07:25 Pulse Oximetry 92 12/10/16 07:25 - Constitutional no acute distress, thin - Routine HEENT Exam Head: Present: normocephalic Eye: Present: PERRL, proptosis (of right eye.) ENT: Present: mucous membranes dry, oropharynx clear - Routine Neck Exam Present: supple. Absent: lymphadenopathy - Routine Chest/Breast/Axilla Exam Chest wall: Absent: tenderness - Routine Respiratory Exam Present: CTA bilaterally. Absent: accessory muscle use, rales - Routine Cardiovascular Exam Present: RRR, no murmur - Routine Abdominal Exam Present: soft, non distended, non tender. Absent: organomegaly - Routine Back/Spine/Pelvis Exam Back/Spine: Present: paraspinal tenderness (mild in cervical area). Absent: muscle spasm - Routine Skin Exam Present: dry, warm - Routine Neurological Exam Present: alert, oriented X3, CN II-XII intact Memory seems somewhat decreased with confusion - Routine Psychiatric Exam Present: normal affect Oncology Results - Labs CBC & Chem 7: 12/10/16 05:22 12/10/16 05:22 Labs: Short CBC 12/10/16 Range/Units 05:22 WBC 8.0 (4.5-11.0) T/MM3 Hgb 7.8 L (13.5-17.5) GM/DL Hct 24.3 L (41-53) % Plt Count 449 H (130-400) T/MM3 BMP 12/10/16 05:22 Sodium 136 Potassium 3.8 Chloride 105 Carbon Dioxide 24 BUN 17.0 Creatinine 0.6 L Glucose 231 H Calcium 8.9 Liver Function 12/10/16 Range/Units 05:22 Total Bilirubin 0.60 (0.20-1.30) MG/DL AST 36 (17-59) U/L ALT 38 (21-72) U/L Alkaline Phosphatase 150 H (38-126) U/L Albumin 2.6 L (3.5-5.0) G/DL Laboratory Tests 12/10/16 12/10/16 12/10/16 05:22 05:22 05:22 Hgb 7.8 L Creatinine 0.6 L Glucose 231 H Uric Acid 2.2 L Lactate Dehydrogenase 1218 H - Imaging and Cardiology CT scan - abdomen Status: image reviewed by me Additional comments: PET scan and CT scan images were reviewed with patient and daughter. 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 With difficult diagnosis as fine-needle aspirate was nondiagnostic and telephone call to Dr. Heredia about most recent percutaneous biopsy did describe necrosis which could possibly move into a grade 3 category. Patient's comorbid conditions prevent aggressive therapy therefore Dr. Heredia has elected to begin R-CVP. Orders have been written. Counts are adequate for this therapy. Bilirubin0.8 alkaline phosphatase slightly elevated at 189 LDH is normal at 522. Allopurinol instituted for prevention of tumor lysis. Currently on Famvir for shingles prophylaxis. Had chemotherapy with our CVP on 12/09/16 which she tolerated very well. No nausea or vomiting. LDH has increased to 1220 but uric acid is only 2.2. This is compatible with tumor lysis. We'll continue to follow potassium, creatinine, phosphorus and uric acid. Repeat values at 6 PM tonight and then again in the morning. 2. Right eye proptosis of uncertain etiology. PET scan is reviewed and no evidence of a mass behind the right eye 3. Coronary artery disease with multiple procedures in past 4. 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 Anemia with hemoglobin decreasing. May need blood transfusion. 6. Neck pain severe last week rating it as a 10 of 10. Will obtain MRI tomorrow Recommendations: Supportive care after chemotherapy Continue Allopurinol for prevention of tumor lysis Follow lab Follow hemoglobin MRI of C-spine. Thank you very much for allowing the opportunity to his being in the care of this patient - Time Spent With Patient Total time spent is greater than 50% in coordination of care (as documented) at patient's floor/unit and/or counseling patient: 25 - 35 minutes
[2016-12-10] MEDS ORDERED: Bisacodyl EC TAB 5 MG TABLET PO ONE (11:39)
--- NOTE | 2016-12-10 11:47 | Progress Note ---
Subjective: Feeling well this morning, pain controlled although he is still having some neck pain at times. Has questions about the discharge plan; he thought he would go home today, discussed that he may need further monitoring and will d/w oncology. Bowels have not moved for several days now. No difficulty with urination. Denies fevers, chills, dyspnea. PO intake remains poor; on TPN. Objective Vital signs: Temperature 98.7 F 12/10/16 07:25 Pulse Rate 66 12/10/16 07:25 Respiratory Rate 16 12/10/16 07:25 Blood Pressure 117/57 12/10/16 07:25 Pulse Oximetry 92 12/10/16 07:25 Rhythm: Normal Sinus Rhythm Height/Weight/BMI: Height 1.65 m Weight 61.3 kg Body Mass Index 21.7 - Constitutional Present: no acute distress, cooperative Comments: hard of hearing - Routine HEENT Exam Head: Present: atraumatic Eye: Present: PERRL. Absent: conjunctival icterus ENT: Present: mucous membranes moist, oropharynx clear Comments: right eye proptosis - Routine Respiratory Exam Present: CTA bilaterally. Absent: rales, rhonchi - Routine Cardiovascular Exam Present: RRR. Absent: murmur - Routine Abdominal Exam Present: soft, non tender, distended Comments: bili drain intact RUQ - Routine Extremities Exam Present: no edema, pulses intact, normal capillary refill - Routine Skin Exam Present: dry, warm. 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 Chemo completed 12/[address] Heredia (Dr. Barton covering today) with R-CVP ( rituxan, cytoxan, vincristine, pred) and tolerated well PICC line has been placed 12/08 and is functioning well Monitor closely for worsenning TLS; uric acid, phos and LDH ordered again this evening and in AM Check CMP, phos, Mg, CBC in AM Continue home meds for DM, hypothyroidism and CAD; monitor blood sugars--> correction scale insulin increased to high scale --> will add levemir 10 units at HS as well, monitor AM glucose Allow po intake as tolerated Monitor blood counts, transfuse PRBC if Hb <7 Continue lovenox prophylactic dosing for DVT prevention Will need to remain inpatient for further monitoring of TLS. Cervical spine MRI planned per oncology as well due to worsening neck pain. Hospital Course Summary Disclaimer: The visit summary below is not to be considered part of the above Progress Note. 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 Consult with Dr Heredia for Oncological evaluation and chemotherapy recommendations and management. PICC line for chemo. Start TPN for nutritional support due to PCM. Continue pain control - home medications, add IV dilaudid prn. Zofran for nausea control. Monitor blood sugars. SCD for DVT prevention. Discussed code status with patient. Request DNR. Order written. Care to return to Dr Sharma at time of discharge from [facility] [place]. 12/09/16 Continue TPN per pharmacy for nutrition support. Chemo per Dr. Heredia (Dr. Barton covering today) with R-CVP (rituxan, cytoxan, vincristine, pred) starting today PICC line has been placed and is functioning well Monitor closely for TLS; uric acid and LDH ordered with AM labs Check CMP, phos, Mg, CBC in AM Continue home meds for DM, hypothyroidism and CAD; monitor blood sugars Allow po intake as tolerated Monitor blood counts, transfuse PRBC if Hb <7 Start lovenox prophylactic dosing for DVT prevention 12/10/16 Continue TPN per pharmacy for nutrition support. Chemo completed 12/[address] Heredia (Dr. Barton covering today) with R-CVP ( rituxan, cytoxan, vincristine, pred) and tolerated well PICC line has been placed 9/29 and is functioning well Monitor closely for worsenning TLS; uric acid, phos and LDH ordered again this evening and in AM Check CMP, phos, Mg, CBC in AM Continue home meds for DM, hypothyroidism and CAD; monitor blood sugars--> correction scale insulin increased to high scale --> will add levemir 10 units at HS as well, monitor AM glucose Allow po intake as tolerated Monitor blood counts, transfuse PRBC if Hb <7 Continue lovenox prophylactic dosing for DVT prevention Will need to remain inpatient for further monitoring of TLS. Cervical spine MRI planned per oncology as well due to worsening neck pain.
[2016-12-10] MEDS: SENNA + DOCUSATE TABLET PO SCH (12:03)
[2016-12-10] MEDS: MULTI-VIT INFUSION 10 ML, MULTI-TRACE ELEMENTS 1 ML in TPN - STANDARD FORMULA 2,000 ML IV SCH (12:03)
[2016-12-10] MEDS: FAT EMULSION 20% 100 ML BAG IV SCH (16:15)
[2016-12-10] MEDS: INSULIN DETEMIR 100unit/ml INJECTION SQ SCH (20:33)
[2016-12-10] MEDS: FENOFIBRATE 160 MG TABLET PO SCH (20:34)
[2016-12-10] MEDS: ASPIRIN *EC* 81 MG TABLET PO SCH (20:34)
[2016-12-10] MEDS: LATANOPROST 0.005% EYE DROPS 2.5ml EACH EYE SCH (20:40)
[2016-12-11] MEDS: INSULIN ASPART 100unit/ml INJECTION SQ PRN ×4 (05:51→21:04)
[2016-12-11] MEDS: LEVOTHYROXINE 25 MCG TABLET PO SCH (06:00)
[2016-12-11] MEDS: OMEPRAZOLE 20 MG CAPSULE PO SCH (06:00)
--- NOTE | 2016-12-11 07:35 | Pharmacy Consult-TPN/PPN ---
Pharmacy Consult-TPN/PPN - Laboratory Information Chemistry Turbidity < 20 (0-20) 12/11/16 04:51 Sodium 133 MEQ/L (134-144) L 12/11/16 04:51 Potassium 4.2 MEQ/L (3.6-5) 12/11/16 04:51 Chloride 104 MEQ/L (98-107) 12/11/16 04:51 Carbon Dioxide 25 MEQ/L (22-30) 12/11/16 04:51 Anion Gap 4 MEQ/L (5-15) L 12/11/16 04:51 BUN 23.0 MG/DL (9-20) H 12/11/16 04:51 Creatinine 0.5 MG/DL (0.8-1.5) L 12/11/16 04:51 GFR Calculation 158 12/11/16 04:51 BUN/Creatinine Ratio 46 RATIO (6-26) H 12/11/16 04:51 Glucose 209 MG/DL (75-110) H 12/11/16 04:51 Glucometer 227 mg/dL (65-110) 12/11/16 05:44 Calculated Osmolality 266 MOSM/KG (261-280) 12/11/16 04:51 Uric Acid 1.7 MG/DL (3.5-8.5) L 12/11/16 04:51 Calcium 8.9 MG/DL (8.4-10.2) 12/11/16 04:51 Phosphorus 2.2 MG/DL (2.5-4.5) L 12/11/16 04:51 Magnesium 1.8 MG/DL (1.6-2.3) 12/11/16 04:51 Total Bilirubin 0.70 MG/DL (0.20-1.30) 12/11/16 04:51 Icterus Index < 2 (0-7) 12/11/16 04:51 AST 74 U/L (17-59) H D 12/11/16 04:51 ALT 41 U/L (21-72) 12/11/16 04:51 Alkaline Phosphatase 149 U/L (38-126) H 12/11/16 04:51 Lactate Dehydrogenase 1418 U/L (313-618) H 12/11/16 04:51 Total Protein 5.6 G/DL (6.3-8.2) L 12/11/16 04:51 Albumin 2.7 G/DL (3.5-5.0) L 12/11/16 04:51 Globulin 2.9 G/DL (2.4-3.6) 12/11/16 04:51 Albumin/Globulin Ratio 0.9 RATIO (1.1-2.2) L 12/11/16 04:51 Prealbumin 11.7 MG/DL (17.6-36.0) L 12/08/16 17:58 Specimen Hemolysis 36 (0-25) H 12/11/16 04:51 Intake and Output 12/10/16 12/11/16 12/12/16 06:59 06:59 06:59 Intake Total 1782.500 / 2457.771 8250 / 3741 Output Total 1470 / 1470 1550 / 1550 Balance 312.500 / 491.385 0047 / 2191 Weight 59.4 kg 61.3 kg Intake: IV 932.500 / 312.279 9328 / 2011 Cytoxan 1,250 mg In 250 / 250 Dextrose 5% in Water 250 ml @ 350 mls/hr IV 1400 [facility] Rx#:[id number] Decadron 10 mg In Normal 52.5 / 52.5 Saline 50 ml @ 157.5 mls/ hr IV .Q20M [facility] Rx#: [id number] Infuvite Adult 10 ml 2010 Multi-Trace Elements 1 ml In TPN - Standard Formula 2,000 ml @ 80 mls /hr IV .Q24H [facility] Rx#: [id number] Rituxan 630 mg In Normal 630.000 / 630.000 Saline 567 ml @ 50 mls/hr IV [facility] Rx#:[id number] Oral 850 / 850 1730 / 1730 Output: Urine 1325 / 1325 1550 / 1550 Wound Drainage 145 / 145 Right Upper Abdomen 145 / 145 Other: Urine Appearance Clear Clear Urine Color Yellow Yellow Urine Odor Normal Stool Characteristics Normal for Patient Stool Color Brown Stool Consistency Soft Formed Size of Bowel Movement Moderate Drain Type Right Upper Abdomen bag # Voids 5 1 # Bowel Movements 1 TPN THERAPY: DAY 3 1. Sodium trending downward: will add Sodium Acetate 40mEq per bag starting with next bag. 2. Sugars running a little high. On Insulin Apart (Novolog*) correctional dose. Has had couple of doses to bring glucose down. Will continue with same dosing regimen today. 3. I/O are good. Wt OK 4. Other electrolytes OK. Will continue rest of TPN Formula the same. Infusing at 80ml/hr via PICC line. Plus Fat Emulsion 20% 100ml, one bag daily to prevent Essential Fatting Acid Deficiency, plus add a few calories. Total Kcal per day = 0655
[2016-12-11] MEDS: POLYETHYL GLYCOL 3350 17gm PACKET PO PRN (08:51)
[2016-12-11] MEDS: CYANOCOBALAMIN (B-12) 500mcg TABLET PO SCH (08:52)
[2016-12-11] MEDS: ALLOPURINOL 300 MG TABLET PO SCH (08:52)
[2016-12-11] MEDS: PredniSONE 20 MG TABLET PO SCH (08:52)
[2016-12-11] MEDS: ASCORBIC ACID 500 MG TABLET PO SCH (08:52)
[2016-12-11] MEDS: ATENOLOL 25 MG TABLET PO SCH ×2 (08:52→21:01)
[2016-12-11] MEDS: SENNA + DOCUSATE TABLET PO SCH (08:52)
[2016-12-11] MEDS: FAMCICLOVIR 500 MG TABLET PO SCH ×2 (08:52→21:01)
[2016-12-11] MEDS: PHENYTOIN 100 MG CAPSULE PO SCH ×2 (08:53→21:00)
[2016-12-11] MEDS: MULTI-VITAMIN + MINERAL TABLET PO SCH (08:54)
[2016-12-11] MEDS: CALCIUM CARBONATE 600 MG TABLET PO SCH (08:54)
[2016-12-11] MEDS ORDERED: SALINE FLUSH 10ml SYRINGE ONE (09:53)
[2016-12-11] MEDS ORDERED: GADOBUTROL 10mMol/10ml INJECTION IVP ONE (09:53)
--- NOTE | 2016-12-11 11:10 | Magnetic Resonance Report ---
EXAM: MR cervical spine wo/w con [place] [facility] [place]ORY: Neck Pain neck and posterior distal head pain. Follicular lymphoma grade 2. COMPARISON: 12/08/2016 PET/CT. TECHNIQUE: Sagittal T-1 and T-2 weighted, sagittal T2 fat saturation or STIR and axial T-2 or gradient echo images were obtained through the cervical spine. After administration of 6 cc gadolinium contrast, sagittal T1 fat-sat and axial T2 sequences were obtained through the cervical spine. Sagittal T1 fat-sat precontrast images were also obtained. FINDINGS: The cervical vertebral bodies are well aligned. The vertebral body heights are well maintained. There is disc space narrowing particularly seen at C5-6 and C6-7 with posterior bony ridging and disc bulge. Disc bulge is also seen at C4-5. The posterior fossa and brainstem region appear unremarkable. Cerebellar tonsils are normally located. Spinal cord signal is unremarkable. Axial images at C2-3 shows no significant stenosis. At C3-4, there is neural foraminal narrowing from facet and uncovertebral joint hypertrophic change. At C4-5, there is disc bulge flattening the anterior thecal sac and is slightly eccentric to left lateral recess. Facet atrophic changes are noted. No mass effect on the cord is seen. At C5-6, disc bulge has convex mass effect on the anterior thecal sac and may contact the anterior cord. No neural foraminal narrowing. The posterior subarachnoid space remains patent. At C6-7, there is disc bulge with convex mass effect on the anterior cord. Posterior subarachnoid space remains patent. No neural foraminal narrowing. At C7-T1, no significant spinal canal stenosis or neural foraminal narrowing. No prevertebral soft tissue bodies are appreciated. IMPRESSION: 1. At C5-6 there is disc bulge with convex mass effect on the anterior spinal cord. The posterior subarachnoid space remains patent. 2. At C6-7 disc bulge and posterior bony ridging has convex mass effect on the anterior spinal cord. Posterior subarachnoid space remains patent. 3. At C4-5 there is disc bulge flattening the anterior thecal sac and comes close to the anterior cord but may not contact the cord. .
[2016-12-11] MEDS: MULTI VIT INFUSION IV SCH (11:56)
[2016-12-11] MEDS: MULTI TRACE ELEMENTS IV SCH (11:56)
[2016-12-11] MEDS: [UNRECOGNIZED DRUG - OTHER] IV SCH (11:56)
[2016-12-11] MEDS: SODIUM ACETATE IV SCH (11:56)
--- NOTE | 2016-12-11 12:53 | Progress Note ---
Subjective: F/U: Follicular lymphoma, Ab pain, anorexia Doing fair-strength feeling okay; not dizzy or unsteady when up. Appetite still very diminished-of the sandwich he has for lunch, just picking at small portion of the meat and cheese. Not feeling hungry. Very nauseated. Passing some flatus , but no stool. Breathing stable-not congested or SOA. No f/c. Objective Vital signs: Temperature 97.7 F 12/11/16 08:30 Pulse Rate 74 12/11/16 08:30 Respiratory Rate 18 12/11/16 08:30 Blood Pressure 140/67 H 12/11/16 08:30 Pulse Oximetry 97 12/11/16 08:30 Rhythm: Normal Sinus Rhythm Height/Weight/BMI: Height 1.65 m Weight 61.3 kg Body Mass Index 21.7 - Constitutional Present: moderate distress, well nourished, thin, cooperative - Routine HEENT Exam Head: Present: normocephalic, atraumatic Eye: Present: EOMI, PERRL ENT: Present: mucous membranes moist - Routine Respiratory Exam Present: decreased breath sounds. Absent: respiratory distress, stridor, wheezes, crackles - Routine Cardiovascular Exam Present: RRR, no murmur - Routine Abdominal Exam Present: soft, non distended, non tender. Absent: normoactive bowel sounds ( Decreased ) - Routine Extremities Exam Present: edema (Trace bilateral LE edema), pulses intact, normal capillary refill. Absent: cyanosis, clubbing - Routine Musculoskeletal Exam Musculoskeletal: Present: no clubbing or cyanosis, normal strength - Routine Skin Exam Present: intact, dry, warm - Routine Neurological Exam Present: alert, CN II-XII intact, moving all extremities, vision grossly intact , hearing grossly intact. Absent: motor deficit - Routine Psychiatric Exam Present: normal affect, normal thought process, cooperative. 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 Onc care as per Dr Heredia. LDH - Stable; not increasing or decreasing. Uric acid low. Sugars stable with current regimen. Continue to monitor. Encourage activities. Will consult PT/OT to help increase abilities. Continue to monitor lab. Time spent with patient care 25 minutes. Hospital Course Summary Disclaimer: The visit summary below is not to be considered part of the above Progress Note. 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 Consult with Dr Heredia for Oncological evaluation and chemotherapy recommendations and management. PICC line for chemo. Start TPN for nutritional support due to PCM. Continue pain control - home medications, add IV dilaudid prn. Zofran for nausea control. Monitor blood sugars. SCD for DVT prevention. Discussed code status with patient. Request DNR. Order written. Care to return to Dr Sharma at time of discharge from [facility] [place] 12/09/16 Continue TPN per pharmacy for nutrition support. Chemo per Dr. Heredia (Dr. Barton covering today) with R-CVP (rituxan, cytoxan, vincristine, pred) starting today PICC line has been placed and is functioning well Monitor closely for TLS; uric acid and LDH ordered with AM labs Check CMP, phos, Mg, CBC in AM Continue home meds for DM, hypothyroidism and CAD; monitor blood sugars Allow po intake as tolerated Monitor blood counts, transfuse PRBC if Hb <7 Start lovenox prophylactic dosing for DVT prevention 12/10/16 Continue TPN per pharmacy for nutrition support. Chemo completed 12/[address] Heredia (Dr[address] Barton covering today) with R-CVP ( rituxan, cytoxan, vincristine, pred) and tolerated well PICC line has been placed 12/08 and is functioning well Monitor closely for worsenning TLS; uric acid, phos and LDH ordered again this evening and in AM Check CMP, phos, Mg, CBC in AM Continue home meds for DM, hypothyroidism and CAD; monitor blood sugars--> correction scale insulin increased to high scale --> will add levemir 10 units at HS as well, monitor AM glucose Allow po intake as tolerated Monitor blood counts, transfuse PRBC if Hb <7 Continue lovenox prophylactic dosing for DVT prevention Will need to remain inpatient for further monitoring of TLS. Cervical spine MRI planned per oncology as well due to worsening neck pain. 12/11/[address] still with decrease, will continue with TPN for support. Onc care as per Dr Heredia. LDH - Stable; not increasing or decreasing. Uric acid low. Sugars stable with current regimen. Continue to monitor. Encourage activities. Will consult PT/OT to help increase abilities. Continue to monitor lab.
[2016-12-11] MEDS: FAT EMULSION 20% 100 ML IV SCH (16:35)
--- NOTE | 2016-12-11 17:04 | Progress Note ---
Oncology Subjective Cough that is productive in the first a.m. Not eating. He continues with confusion. No vomiting. Review of systems: Gen.: Negative for fever or chills, malaise Eyes: Negative eye discharge, eye pain ENT: Negative for nosebleeds, mouth sores Lymph: Negative enlarged lymph nodes, no night sweats Respiratory: Positive for cough, negative shortness of breath, hemoptysis, Cardiac: Negative for chest pain, palpitations, or swelling GI: Negative for nausea, negative for vomiting, negative for diarrhea Musculoskeletal: Positive for weakness, no joint pain Neurologic: Negative for headache, negative for focal weakness, negative for numbness Exam Vital signs: Temperature 97.6 F 12/11/16 15:28 Pulse Rate 69 12/11/16 15:28 Respiratory Rate 16 12/11/16 15:28 Blood Pressure 145/67 H 12/11/16 15:28 Pulse Oximetry 98 12/11/16 15:28 - Constitutional no acute distress - Routine HEENT Exam Head: Present: normocephalic Eye: Present: EOMI, PERRL ENT: Present: mucous membranes moist - Routine Neck Exam Present: supple. Absent: lymphadenopathy - Routine Respiratory Exam Present: CTA bilaterally. Absent: respiratory distress - Routine Cardiovascular Exam Present: RRR - Routine Abdominal Exam Present: soft, tenderness (mild and upper abdomen), organomegaly - Routine Extremities Exam Absent: cyanosis, clubbing, edema - Routine Skin Exam Present: dry, warm. Absent: rash - Routine Neurological Exam Present: alert, CN II-XII intact Memory seems decreased Oncology Results - Labs CBC & Chem 7: 12/11/16 04:51 12/11/16 04:51 Labs: Short CBC 12/10/16 12/11/16 Range/Units 18:22 04:51 WBC 9.6 8.4 (4.5-11.0) T/MM3 Hgb 8.7 L D 8.0 L (13.5-17.5) GM/DL Hct 27.1 L D 24.8 L (41-53) % Plt Count 553 H 475 H (130-400) T/MM3 BMP 12/10/16 12/11/16 18:22 04:51 Sodium 134 133 L Potassium 4.5 D 4.2 Chloride 102 104 Carbon Dioxide 25 25 BUN 22.0 H 23.0 H Creatinine 0.6 L 0.5 L Glucose 310 H 209 H Calcium 9.2 8.9 Liver Function 12/10/16 12/11/16 Range/Units 18:22 04:51 Total Bilirubin 0.70 (0.20-1.30) MG/DL AST 74 H D (17-59) U/L ALT 41 (21-72) U/L Alkaline Phosphatase 149 H (38-126) U/L Albumin 3.1 L 2.7 L (3.5-5.0) G/DL Laboratory Tests 12/08/16 12/09/16 12/10/16 17:58 03:53 05:22 Hgb 8.1 L D MCV Potassium 3.8 Glucose Uric Acid Phosphorus 3.2 Lactate Dehydrogenase 1218 H 12/10/16 12/10/16 12/11/16 05:22 18:22 04:51 Hgb 7.8 L MCV Potassium 4.5 D 4.2 Glucose 209 H Uric Acid 1.7 L Phosphorus 1.9 L 2.2 L Lactate Dehydrogenase 1434 H 1418 H 12/11/16 04:51 Hgb 8.0 L MCV 88.3 Potassium Glucose Uric Acid Phosphorus Lactate Dehydrogenase - Impressions Date of Exam: 12/11/16 Ordering Provider: Donald Barton MD Type of Exam(s): MR cervical spine wo/w con Reason for Exam(s): Neck Pain EXAM: MR cervical spine wo/w con [place] [facility] [place]: Neck Pain neck and posterior distal head pain. Follicular lymphoma grade 2. COMPARISON: 12/08/2016 PET/CT. TECHNIQUE: Sagittal T-1 and T-2 weighted, sagittal T2 fat saturation or STIR and axial T-2 or gradient echo images were obtained through the cervical spine. After administration of 6 cc gadolinium contrast, sagittal T1 fat-sat and axial T2 sequences were obtained through the cervical spine. Sagittal T1 fat-sat precontrast images were also obtained. FINDINGS: The cervical vertebral bodies are well aligned. The vertebral body heights are well maintained. There is disc space narrowing particularly seen at C5-6 and C6-7 with posterior bony ridging and disc bulge. Disc bulge is also seen at C4-5. The posterior fossa and brainstem region appear unremarkable. Cerebellar tonsils are normally located. Spinal cord signal is unremarkable. Axial images at C2-3 shows no significant stenosis. At C3-4, there is neural foraminal narrowing from facet and uncovertebral joint hypertrophic change. At C4-5, there is disc bulge flattening the anterior thecal sac and is slightly eccentric to left lateral recess. Facet atrophic changes are noted. No mass effect on the cord is seen. At C5-6, disc bulge has convex mass effect on the anterior thecal sac and may contact the anterior cord. No neural foraminal narrowing. The posterior subarachnoid space remains patent. At C6-7, there is disc bulge with convex mass effect on the anterior cord. Posterior subarachnoid space remains patent. No neural foraminal narrowing. At C7-T1, no significant spinal canal stenosis or neural foraminal narrowing. No prevertebral soft tissue bodies are appreciated. IMPRESSION: 1. At C5-6 there is disc bulge with convex mass effect on the anterior spinal cord. The posterior subarachnoid space remains patent. 2. At C6-7 disc bulge and posterior bony ridging has convex mass effect on the anterior spinal cord. Posterior subarachnoid space remains patent. 3. At C4-5 there is disc bulge flattening the anterior thecal sac and comes close to the anterior cord but may not contact the cord. . 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 With difficult diagnosis as fine-needle aspirate was nondiagnostic and telephone call to Dr. Heredia about most recent percutaneous biopsy did describe necrosis which could possibly move into a grade 3 category. Patient's comorbid conditions prevent aggressive therapy therefore Dr. Heredia has elected to begin R-CVP. Orders have been written. Counts are adequate for this therapy. Bilirubin0.8 alkaline phosphatase slightly elevated at 189 LDH is normal at 522. Allopurinol instituted for prevention of tumor lysis. Currently on Famvir for shingles prophylaxis. Had chemotherapy with our CVP on 12/09/16 which she tolerated very well. No nausea or vomiting. 12/10 LDH has increased to 1220 but uric acid is only 2.2. This is compatible with tumor lysis. We'll continue to follow potassium, creatinine, phosphorus and uric acid. Repeat values at 6 PM 12/10 were higher and 10/2 were starting to decrease. Will follow. 2. Right eye proptosis of uncertain etiology. PET scan is reviewed and no evidence of a mass behind the right eye 3. Coronary artery disease with multiple procedures in past 4. Protein calorie malnutrition secondary to lymphoma involvement and probable mesenteric ischemia from the masses pressing on the SMA On TPN 5. Anemia with hemoglobin decreasing. May need blood transfusion. Hgb 8.0. Anemia work ordered. 6. Neck pain severe last week rating it as a 10 of 10. MRI has some bulging discs but nothing that causes spinal cord compromise. Recommendations: Supportive care after chemotherapy Continue Allopurinol for prevention of tumor lysis Follow lab Follow hemoglobin may need blood transfusion tomorrow Anemia workup ordered today Thank you very much for allowing the opportunity to his being in the care of this patient - Time Spent With Patient Total time spent is greater than 50% in coordination of care (as documented) at patient's floor/unit and/or counseling patient: 25 - 35 minutes
[2016-12-11] MEDS: ONDANSETRON 4 MG/2 ML INJECTION IVP PRN (17:25)
[2016-12-11] MEDS: FENOFIBRATE 160 MG TABLET PO SCH (21:01)
[2016-12-11] MEDS: ASPIRIN *EC* 81 MG TABLET PO SCH (21:01)
[2016-12-11] MEDS: INSULIN DETEMIR 100unit/ml INJECTION SQ SCH (21:03)
[2016-12-11] MEDS: LATANOPROST 0.005% EYE DROPS 2.5ml EACH EYE SCH (21:09)
[2016-12-12] MEDS: OMEPRAZOLE 20 MG CAPSULE PO SCH (06:27)
[2016-12-12] MEDS: LEVOTHYROXINE 25 MCG TABLET PO SCH (06:27)
[2016-12-12] MEDS: INSULIN ASPART 100unit/ml INJECTION SQ PRN ×4 (06:27→21:30)
--- NOTE | 2016-12-12 08:51 | Pharmacy Consult-TPN/PPN ---
Pharmacy Consult-TPN/PPN - Laboratory Information Chemistry Turbidity < 20 (0-20) 12/12/16 04:15 Sodium 135 MEQ/L (134-144) 12/12/16 04:15 Potassium 4.4 MEQ/L (3.6-5) 12/12/16 04:15 Chloride 101 MEQ/L (98-107) 12/12/16 04:15 Carbon Dioxide 26 MEQ/L (22-30) 12/12/16 04:15 Anion Gap 8 MEQ/L (5-15) 12/12/16 04:15 BUN 24.0 MG/DL (9-20) H 12/12/16 04:15 Creatinine 0.5 MG/DL (0.8-1.5) L 12/12/16 04:15 GFR Calculation 158 12/12/16 04:15 BUN/Creatinine Ratio 48 RATIO (6-26) H 12/12/16 04:15 Glucose 171 MG/DL (75-110) H 12/12/16 04:15 Glucometer 268 mg/dL (65-110) 12/12/16 05:56 Calculated Osmolality 268 MOSM/KG (261-280) 12/12/16 04:15 Uric Acid 1.4 MG/DL (3.5-8.5) L 12/12/16 04:15 Calcium 8.8 MG/DL (8.4-10.2) 12/12/16 04:15 Phosphorus 2.2 MG/DL (2.5-4.5) L 12/11/16 04:51 Magnesium 1.9 MG/DL (1.6-2.3) 12/12/16 04:15 Total Bilirubin 0.70 MG/DL (0.20-1.30) 12/12/16 04:15 Icterus Index < 2 (0-7) 12/12/16 04:15 AST 364 U/L (17-59) H D 12/12/16 04:15 ALT 117 U/L (21-72) H D 12/12/16 04:15 Alkaline Phosphatase 206 U/L (38-126) H D 12/12/16 04:15 Lactate Dehydrogenase 2025 U/L (313-618) H 12/12/16 04:15 Total Protein 6.1 G/DL (6.3-8.2) L 12/12/16 04:15 Albumin 3.0 G/DL (3.5-5.0) L 12/12/16 04:15 Globulin 3.1 G/DL (2.4-3.6) 12/12/16 04:15 Albumin/Globulin Ratio 1.0 RATIO (1.1-2.2) L 12/12/16 04:15 Prealbumin 11.7 MG/DL (17.6-36.0) L 12/08/16 17:58 Homocysteine 9.0 umol/L (5.5-16.2) 12/11/16 09:29 Specimen Hemolysis < 15 (0-25) 12/12/16 04:15 Intake and Output 12/11/16 12/12/16 12/13/16 06:59 06:59 06:59 Intake Total 3741 / 3741 2808 / 2808 Output Total 1550 / 1550 950 / 950 Balance 2191 / 2191 1858 / 1858 Weight 61.3 kg 61 kg Intake: IV 2010 Intralipid 20% 100 ml @ 100 / 100 50 mls/hr IV 1600 TONY Rx# :[id number] Infuvite Adult 10 ml 2010 1908 / 1908 Multi-Trace Elements 1 ml In TPN - Standard Formula 2,000 ml @ 80 mls /hr IV .Q24H TONY Rx#: [id number] Oral 1730 / 1730 800 / 800 Output: Urine 1550 / 1550 950 / 950 Other: Urine Appearance Clear Clear Urine Color Yellow Yellow Stool Characteristics Normal for Patient Stool Color Brown Stool Consistency Soft Formed Size of Bowel Movement Moderate # Voids 1 # Bowel Movements 1 TPN THERAPY: DAY 4 1. Sodium seems to be stabilizing: will continue the Sodium Acetate 40mEq per bag for now. 2. Sugars running a little high. On Insulin Apart (Novolog*) correctional dose. Has had couple of doses to bring glucose down. Will continue with same dosing regimen today. 3. I/O are good. Wt OK 4. Other electrolytes OK. Will continue rest of TPN Formula the same. Infusing at 80ml/hr via PICC line. Plus Fat Emulsion 20% 100ml, one bag daily to prevent Essential Fatting Acid Deficiency, plus add a few calories. Total Kcal per day = 1845 Thanks, Trung Barton, Pharmacist
--- NOTE | 2016-12-12 09:06 | Progress Note ---
Oncology Subjective Sitting on bedside. Alert and oriented. Complains of decreased appetite, intermittent right upper quadrant discomfort. Nausea/vomiting, states severe yesterday-vomited several times. No vomiting today, but has not had oral intake. Last BM 3 days ago, small. Voiding normally. Denies neck pain today. General: No fever, no night sweats Eyes: No redness, no pain, no diplopia ENT: No mouth sores, no trouble swallowing Cardiac: No chest pain no palpitations Pulmonary: No cough, no shortness of breath, no wheezing Abdomen: + pain, + nausea vomiting- ? constipation : No urgency, frequency, dysuria, or hematuria Musculoskeletal: Positive intermittent neck pain. Denies currently Neurological: No headaches, no focal weakness Skin: No rash, no sores Psychiatric: No anxiety, no depression <Lili Berry L - 12/12/16 12:22> Exam Vital signs: Temperature 95.8 F L 12/12/16 15:29 Pulse Rate 79 12/12/16 15:29 Respiratory Rate 18 12/12/16 15:29 Blood Pressure 156/69 H 12/12/16 15:29 Pulse Oximetry 97 12/12/16 15:29 <YanYanci M - 12/12/16 17:05> Temperature 96.7 F L 12/12/16 00:00 Pulse Rate 72 12/12/16 00:00 Respiratory Rate 22 12/12/16 00:00 Blood Pressure 139/69 12/12/16 00:00 Pulse Oximetry 99 12/12/16 00:00 <Lili Berry L - 12/12/16 09:17> - Constitutional no acute distress, well developed, cooperative <Lili Berry L - 12/12/16 09: 17> - Routine HEENT Exam Head: Present: normocephalic <Lili Berry - 12/12/16 09:17> Eye: Present: EOMI, conjunctivae pink <Lili Berry - 12/12/16 09:17> ENT: Present: mucous membranes moist <Lili Berry - 12/12/16 09:17> - Routine Neck Exam Present: supple. Absent: tenderness <Lili Berry - 12/12/16 09:17> - Routine Respiratory Exam Present: CTA bilaterally. Absent: dyspnea <Lili Berry - 12/12/16 09:17> - Routine Cardiovascular Exam Present: RRR. Absent: no murmur <Lili Berry - 12/12/16 09:17> - Routine Abdominal Exam Present: soft, tenderness, distended <Lili Berry - 12/12/16 09:17> Comments: Mild abdominal distention. Biliary stent intact/no sign symptoms of inflammation. Minimal drainage in tubing noted. <Lili Berry - 12/12/16 09:17> - Routine Extremities Exam Present: edema (trace/1+ pedal edema), full ROM. Absent: tenderness <Lili Berry - 12/12/16 09:17> - Routine Skin Exam Present: intact, dry, warm. Absent: rash <Lili Berry - 12/12/16 09:17> - Routine Neurological Exam Present: alert, oriented X3 <iLli Berry - 12/12/16 09:17> - Routine Psychiatric Exam Present: normal affect, normal thought process <Lili Berry - 12/12/16 09: 17> Oncology Results - Labs CBC & Chem 7: 12/12/16 04:15 12/12/16 04:15 <Yanci Heredia - 12/12/16 17:05> Labs: Short CBC 12/12/16 Range/Units 04:15 WBC 7.7 (4.5-11.0) T/MM3 Hgb 8.3 L (13.5-17.5) GM/DL Hct 25.8 L (41-53) % Plt Count 486 H (130-400) T/MM3 [facility] 12/12/16 04:15 Sodium 135 Potassium 4.4 Chloride 101 Carbon Dioxide 26 BUN 24.0 H Creatinine 0.5 L Glucose 171 H Calcium 8.8 Liver Function 12/12/16 Range/Units 04:15 Total Bilirubin 0.70 (0.20-1.30) MG/DL AST 364 H D (17-59) U/L ALT 117 H D (21-72) U/L Alkaline Phosphatase 206 H D (38-126) U/L Albumin 3.0 L (3.5-5.0) G/DL <YanKileyhermelinda Soraya - 12/12/16 17:05> Short CBC 12/12/16 Range/Units 04:15 WBC 7.7 (4.5-11.0) T/MM3 Hgb 8.3 L (13.5-17.5) GM/DL Hct 25.8 L (41-53) % Plt Count 486 H (130-400) T/MM3 BMP 12/12/16 04:15 Sodium 135 Potassium 4.4 Chloride 101 Carbon Dioxide 26 BUN 24.0 H Creatinine 0.5 L Glucose 171 H Calcium 8.8 Liver Function 12/12/16 Range/Units 04:15 Total Bilirubin 0.70 (0.20-1.30) MG/DL AST 364 H D (17-59) U/L ALT 117 H D (21-72) U/L Alkaline Phosphatase 206 H D (38-126) U/L Albumin 3.0 L (3.5-5.0) G/DL <Lili Berry L - 12/12/16 09:17> Assessment and Plan Assessment and Plan: 1. 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 Allopurinol instituted for prevention of tumor lysis. Currently on Famvir for shingles prophylaxis. Had chemotherapy with our CVP on 12/09/16, tolerated well. 2. Acute elevation AST/ALT on 12/12/16: AST 364, ALT 117. LDH elevated at 2024 on 12/12/16. Total bilirubin normal at 0.7 3. Coronary artery disease with multiple procedures in past 4. Protein calorie malnutrition secondary to lymphoma involvement and probable mesenteric ischemia from the masses pressing on the SMA On TPN 5. Anemia with hemoglobin decreasing. Hgb 8.0 on 12/11/16. Hemoglobin 8.3 on 05/26 Anemia work ordered, results pending. 6. Neck pain severe last week rating it as a 10 of 10. MRI has some bulging discs but nothing that causes spinal cord compromise. Denies neck pain today. Dr. Heredia discussed findings with patient; call has been placed to Dr. Goodman, interventional radiologist at [facility] who placed biliary stent. Dr. Heredia has communicated with Dr. Hebert. Stent was placed left biliary tube secondary to severe obstruction. Plan CT abdomen today for evaluation of stent placement/ rule out biliary obstruction. Plan discussed w/ patient and . They have no questions at this time. Also discussed w/ Dr. Kirby. <Lili Berry - 12/12/16 12:22> - Time Spent With Patient Total time spent is greater than 50% in coordination of care (as documented) at patient's floor/unit and/or counseling patient: <Yanci Heredia - 12/12/16 17:05> Total time spent is greater than 50% in coordination of care (as documented) at patient's floor/unit and/or counseling patient: <Lili Berry - 12/12/16 09:17> 25 - 35 minutes <Lili Berry - 12/12/16 09:27> Progress Note: I reviewed the CT scan with Dr. Cristhian Hernandez. The CT scan showed subcapsular hepatic hematoma which could explain the patient's symptoms.. The percutaneous biliary drain is in place. The biliary dilatation has improved on the left side. I talked to the radiologist at [facility] and we discussed the CT scan findings. The patient will be scheduled for follow-up with interventional radiologist at [facility] to follow-up on the percutaneous biliary tube. We will keep the tube in place at this time. We will follow blood counts closely. <Yanci Heredia - 12/12/16 17:04>
[2016-12-12] MEDS: PredniSONE 20 MG TABLET PO SCH ×2 (10:09→16:06)
[2016-12-12] MEDS: CALCIUM CARBONATE 600 MG TABLET PO SCH (10:09)
[2016-12-12] MEDS: PHENYTOIN 100 MG CAPSULE PO SCH ×2 (10:09→21:04)
[2016-12-12] MEDS: FAMCICLOVIR 500 MG TABLET PO SCH ×2 (10:10→21:05)
[2016-12-12] MEDS: CYANOCOBALAMIN (B-12) 500mcg TABLET PO SCH (10:11)
[2016-12-12] MEDS: MULTI-VITAMIN + MINERAL TABLET PO SCH (10:11)
[2016-12-12] MEDS: ATENOLOL 25 MG TABLET PO SCH ×2 (10:11→21:07)
[2016-12-12] MEDS: SENNA + DOCUSATE TABLET PO SCH (10:11)
[2016-12-12] MEDS: ALLOPURINOL 300 MG TABLET PO SCH (10:12)
[2016-12-12] MEDS: ASCORBIC ACID 500 MG TABLET PO SCH (10:12)
[2016-12-12] MEDS ORDERED: NS 100 ML ONE (10:25)
[2016-12-12] MEDS ORDERED: SALINE FLUSH 10ml SYRINGE ONE (10:25)
[2016-12-12] MEDS ORDERED: IOHEXOL 300mg/ml 100ml INJECTION ONE (10:25)
--- NOTE | 2016-12-12 11:49 | CT Scan Report ---
Indication: Decreased appetite, right upper quadrant pain, nausea and vomiting, history of lymphoma PROCEDURE: CT abdomen w con: Encounter: Initial Comparison: PET/CT dated December 08, [address] chest, abdomen and pelvis dated November 06, 2016 Technique: Axial CT images were performed through the abdomen after the administration of intravenous contrast. Coronal and sagittal two-dimensional reformats. Automated Exposure Control and Iterative Reconstruction dose reducing techniques were utilized. Contrast: Omnipaque 300 89 mL Findings: Scattered areas of consolidation in the lower lung jeffery with scarring. There is subcapsular fluid collection along the left lobe of the liver measuring up to 3.8 x 11.6 x 6.7 cm in size. This probably represents subacute subcapsular hematoma. There is an internal/external bile drain running along the margin of this collection with moderate left sided bile duct dilatation. No enhancing liver mass. The gallbladder is unremarkable. Large areas of low attenuation throughout the spleen are grossly stable from the comparison studies. Perisplenic lymphadenopathy is smaller overall, now measuring 7 x 2.7 cm compared to 7.7 x 3.5 cm previously. The pancreas is unchanged. Surgical clips along the mid right kidney medially. Kidneys are stable in appearance. Infiltrative mass surrounding the SMA is redemonstrated. This has decreased in size, now measuring 5.9 x 3.5 cm on axial image #36 compared to 6.2 x 5 cm previously. Other area pancreatic lymph nodes are also some somewhat smaller. No new or worsening adenopathy seen in the abdomen. The visualized loops of small and large bowel show no acute findings. There is some new free fluid along the left paracolic gutter that has developed in the interval. There is also a small amount of fluid in the retrocrural space adjacent to the lower esophageal segment. Bone windows are unchanged. Impression: 1. New but subacute appearing subcapsular left hepatic hematoma. 2. Improving adenopathy within the abdomen. 3. New small volume ascites. .
[2016-12-12] MEDS: MULTI VIT INFUSION IV SCH (12:13)
[2016-12-12] MEDS: [UNRECOGNIZED DRUG - OTHER] IV SCH (12:13)
[2016-12-12] MEDS: MULTI TRACE ELEMENTS IV SCH (12:13)
[2016-12-12] MEDS: SODIUM ACETATE IV SCH (12:13)
[2016-12-12] MEDS ORDERED: ALTEPLASE (Cathflo*) 2mg INJECTION IV ONE (15:32)
[2016-12-12] MEDS: FAT EMULSION 20% 100 ML IV SCH (15:56)
[2016-12-12] MEDS: POLYETHYL GLYCOL 3350 17gm PACKET PO PRN (15:56)
[2016-12-12] MEDS: ONDANSETRON 4 MG/2 ML INJECTION IVP PRN (16:06)
--- NOTE | 2016-12-12 17:32 | Progress Note ---
Subjective: F/U: Follicular lymphoma, Ab pain, anorexia About the same. Ab pain varies. Nausea still problematic-not having emesis, but will get nauseated at the thought of food. Oral drive varies. Breathing stable. No chest pain. Strength variable. Objective Vital signs: Temperature 95.8 F L 12/12/16 15:29 Pulse Rate 79 12/12/16 15:29 Respiratory Rate 18 12/12/16 15:29 Blood Pressure 156/69 H 12/12/16 15:29 Pulse Oximetry 97 12/12/16 15:29 Rhythm: Normal Sinus Rhythm Height/Weight/BMI: Height 1.65 m Weight 62 kg Body Mass Index 21.7 - Constitutional Present: well nourished, well developed, thin, cooperative. Absent: combative, agitated - Routine HEENT Exam Head: Present: normocephalic, atraumatic Eye: Present: EOMI, PERRL ENT: Present: mucous membranes moist - Routine Respiratory Exam Present: decreased breath sounds. Absent: respiratory distress, rhonchi, wheezes, crackles - Routine Cardiovascular Exam Present: RRR, no murmur - Routine Abdominal Exam Present: soft, non distended, non tender. Absent: normoactive bowel sounds - Routine Extremities Exam Present: edema (+2 BLE ), pulses intact. Absent: cyanosis, clubbing - Routine Musculoskeletal Exam Musculoskeletal: Present: no clubbing or cyanosis, no joint swelling - Routine Skin Exam Present: dry, warm - Routine Neurological Exam Present: alert, CN II-XII intact, moving all extremities, vision grossly intact , hearing grossly intact. 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 CT abdomen/pelvis obtained to check on tube placement. Subcapsular left hepatic hematoma found. Likely contributing to pain. Possible increasing LFT and LDH as well. Discussed case with Dr Heredia-he is in discussion with Dr. Goodman regarding these findings. Will add Marinol to try to help stimulate appetite - treatment of tumor waldrop to improving symptoms. CT did show decrease of adenopathy. Continue with TPN for nutritional support. Sugars showing elevation due to TPN - increase Levemir to 15 units at night. Continue PT/OT to help increase abilities. Continue to monitor lab. Case discussed with CM, Dr Heredia and pt's daughter. Time spent with patient care 25 minutes. Hospital Course Summary Disclaimer: The visit summary below is not to be considered part of the above Progress Note. 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 Consult with Dr Heredia for Oncological evaluation and chemotherapy recommendations and management. PICC line for chemo. Start TPN for nutritional support due to PCM. Continue pain control - home medications, add IV dilaudid prn. Zofran for nausea control. Monitor blood sugars. SCD for DVT prevention. Discussed code status with patient. Request DNR. Order written. Care to return to Dr Sharma at [place] [facility] [place]/09/16 Continue TPN per pharmacy for nutrition support. Chemo per Dr. Heredia (Dr. Barton covering today) with R-CVP (rituxan, cytoxan, vincristine, pred) starting today PICC line has been placed and is functioning well Monitor closely for TLS; uric acid and LDH ordered with AM labs Check CMP, phos, Mg, CBC in AM Continue home meds for DM, hypothyroidism and CAD; monitor blood sugars Allow po intake as tolerated Monitor blood counts, transfuse PRBC if Hb <7 12/10/16 Continue TPN per pharmacy for nutrition support. Chemo completed 12/[address] Heredia (Dr[address] Barton covering today) with R-CVP ( rituxan, cytoxan, vincristine, pred) and tolerated well Monitor closely for worsenning TLS; uric acid, phos and LDH ordered again this evening and in AM Check CMP, phos, Mg, CBC in AM Continue home meds for DM, hypothyroidism and CAD; monitor blood sugars--> correction scale insulin increased to high scale --> will add levemir 10 units at HS as well, monitor AM glucose Allow po intake as tolerated Will need to remain inpatient for further monitoring of TLS. Cervical spine MRI planned per oncology as well due to worsening neck pain. 12/11/[address] still with decrease, will continue with TPN for support. Onc care as per Dr Heredia. LDH - Stable; not increasing or decreasing. Uric acid low. Sugars stable with current regimen. Continue to monitor. Encourage activities. Will consult PT/OT to help increase abilities. Continue to monitor lab. 12/12/16 Liver enzymes with marked increase today. CT abdomen/pelvis obtained to check on tube placement. Subcapsular left hepatic hematoma found. Likely contributing to pain. Possible increasing LFT and LDH as well. Discussed case with Dr Heredia-he is in discussion with Dr. Goodman regarding these findings. Will add Marinol to try to help stimulate appetite - treatment of tumor waldrop to improving symptoms. CT did show decrease of adenopathy. Continue with TPN for nutritional support. Sugars showing elevation due to TPN - increase Levemir to 15 units at night. Continue PT/OT to help increase abilities.
[2016-12-12] MEDS ORDERED: INSULIN DETEMIR 100unit/ml INJECTION SQ SCH (21:00)
[2016-12-12] MEDS: FENOFIBRATE 160 MG TABLET PO SCH (21:06)
[2016-12-12] MEDS: LATANOPROST 0.005% EYE DROPS 2.5ml EACH EYE SCH (21:07)
[2016-12-12] MEDS: DRONABINOL 2.5 MG CAPSULE PO SCH (21:15)
[2016-12-12] MEDS: ASPIRIN *EC* 81 MG TABLET PO SCH (21:15)
[2016-12-13] MEDS: LEVOTHYROXINE 25 MCG TABLET PO SCH (06:03)
[2016-12-13] MEDS: OMEPRAZOLE 20 MG CAPSULE PO SCH (06:03)
[2016-12-13] MEDS: INSULIN ASPART 100unit/ml INJECTION SQ PRN ×3 (06:10→17:34)
[2016-12-13] MEDS: ONDANSETRON 4 MG/2 ML INJECTION IVP PRN (07:25)
--- NOTE | 2016-12-13 08:02 | Pharmacy Consult-TPN/PPN ---
Pharmacy Consult-TPN/PPN - Laboratory Information Chemistry Turbidity < 20 (0-20) 12/13/16 04:37 Sodium 131 MEQ/L (134-144) L 12/13/16 04:37 Potassium 4.7 MEQ/L (3.6-5) 12/13/16 04:37 Chloride 99 MEQ/L (98-107) 12/13/16 04:37 Carbon Dioxide 29 MEQ/L (22-30) 12/13/16 04:37 Anion Gap 3 MEQ/L (5-15) L 12/13/16 04:37 BUN 25.0 MG/DL (9-20) H 12/13/16 04:37 Creatinine 0.5 MG/DL (0.8-1.5) L 12/13/16 04:37 GFR Calculation 158 12/13/16 04:37 BUN/Creatinine Ratio 50 RATIO (6-26) H 12/13/16 04:37 Glucose 222 MG/DL (75-110) H 12/13/16 04:37 Glucometer 246 mg/dL (65-110) 12/13/16 06:04 Calculated Osmolality 264 MOSM/KG (261-280) 12/13/16 04:37 Uric Acid 1.4 MG/DL (3.5-8.5) L 12/13/16 04:37 Calcium 8.8 MG/DL (8.4-10.2) 12/13/16 04:37 Phosphorus 2.7 MG/DL (2.5-4.5) 12/13/16 04:37 Magnesium 1.9 MG/DL (1.6-2.3) 12/12/16 04:15 Iron 136 UG/DL (49-181) 12/11/16 09:29 TIBC 220 UG/DL (261-497) L 12/11/16 09:29 % Saturation 62 % (13-59) H 12/11/16 09:29 Erythropoietin 287 mIU/mL H 12/11/16 09:29 Ferritin 413 NG/ML (18-464) 12/11/16 09:29 Total Bilirubin 0.60 MG/DL (0.20-1.30) 12/13/16 04:37 Icterus Index < 2 (0-7) 12/13/16 04:37 AST 177 U/L (17-59) H D 12/13/16 04:37 ALT 106 U/L (21-72) H 12/13/16 04:37 Alkaline Phosphatase 183 U/L (38-126) H 12/13/16 04:37 Lactate Dehydrogenase 1226 U/L (313-618) H 12/13/16 04:37 Total Protein 5.4 G/DL (6.3-8.2) L 12/13/16 04:37 Albumin 2.6 G/DL (3.5-5.0) L 12/13/16 04:37 Globulin 2.8 G/DL (2.4-3.6) 12/13/16 04:37 Albumin/Globulin Ratio 0.9 RATIO (1.1-2.2) L 12/13/16 04:37 Prealbumin 11.7 MG/DL (17.6-36.0) L 12/08/16 17:58 Vitamin B12 > 1000 PG/ML (239-931) H 12/11/16 09:29 Folate 8.7 NG/ML (2.76-20) 12/11/16 09:29 Homocysteine 9.0 umol/L (5.5-16.2) 12/11/16 09:29 Specimen Hemolysis < 15 (0-25) 12/13/16 04:37 Intake and Output 12/12/16 12/13/16 12/14/16 06:59 06:59 06:59 Intake Total 2808 / 2808 2203.667 / 2203.667 Output Total 950 / 950 1875 / 1875 Balance 1858 / 1858 328.667 / 328.667 Weight 61 kg 62 kg 62.9 kg Intake: IV 2007 2153.667 / 2153.667 Intralipid 20% 100 ml @ 100 / 100 28.333 / 28.333 50 mls/hr IV 1600 TONY Rx# :[id number] Infuvite Adult 10 ml 1908 / 1908 Multi-Trace Elements 1 ml In TPN - Standard Formula 2,000 ml @ 80 mls /hr IV .Q24H TONY Rx#: [id number] Sodium Acetate 40 Meq 2125.334 / 2125.334 Infuvite Adult 10 ml Multi-Trace Elements 1 ml In TPN - Standard Formula 2,000 ml @ 80 mls /hr IV .Q24H TONY Rx#: [id number] Oral 800 / 800 50 / 50 Output: Urine 950 / 950 1875 / 1875 Other: Urine Appearance Clear Clear Urine Color Yellow Yellow Urine Odor Normal Size of Bowel Movement Smear - Consult Information Added 20meq of sodium chloride to today's formula. Continue current rate of 80 mls/hr. Thank you.
[2016-12-13 08:45] VITALS: BMI 22.4
[2016-12-13] MEDS: PredniSONE 20 MG TABLET PO SCH (08:49)
[2016-12-13] MEDS: FAMCICLOVIR 500 MG TABLET PO SCH ×2 (08:50→21:14)
[2016-12-13] MEDS: CYANOCOBALAMIN (B-12) 500mcg TABLET PO SCH (08:50)
[2016-12-13] MEDS: CALCIUM CARBONATE 600 MG TABLET PO SCH (08:50)
[2016-12-13] MEDS: ALLOPURINOL 300 MG TABLET PO SCH (08:50)
[2016-12-13] MEDS: ATENOLOL 25 MG TABLET PO SCH ×2 (08:50→21:14)
[2016-12-13] MEDS: ASCORBIC ACID 500 MG TABLET PO SCH (08:50)
[2016-12-13] MEDS: MULTI-VITAMIN + MINERAL TABLET PO SCH (08:50)
[2016-12-13] MEDS: PHENYTOIN 100 MG CAPSULE PO SCH ×2 (08:50→21:14)
[2016-12-13] MEDS: DRONABINOL 2.5 MG CAPSULE PO SCH ×2 (08:50→21:14)
[2016-12-13] MEDS: SENNA + DOCUSATE TABLET PO SCH (08:50)
[2016-12-13] MEDS ORDERED: SODIUM ACETATE IV SCH (12:01)
[2016-12-13] MEDS ORDERED: MULTI TRACE ELEMENTS IV SCH (12:01)
[2016-12-13] MEDS ORDERED: [UNRECOGNIZED DRUG - OTHER] IV SCH (12:01)
[2016-12-13] MEDS ORDERED: MULTI VIT INFUSION IV SCH (12:01)
--- NOTE | 2016-12-13 13:10 | Progress Note ---
Subjective: F/U: Follicular lymphoma, Ab pain, anorexia Doing about the same. Nausea with slight decrease, appetite with slight increase. Eats slow-will get full and bloated with eating. Reports bowels moving. Walked with therapy-did well, but tiring. Breathing well. Does feel pain overall controlled. Objective Vital signs: Temperature 96.8 F 12/13/16 07:26 Pulse Rate 74 12/13/16 07:26 Respiratory Rate 16 12/13/16 07:26 Blood Pressure 146/72 H 12/13/16 07:26 Pulse Oximetry 100 12/13/16 07:26 Rhythm: Normal Sinus Rhythm Height/Weight/BMI: Height 1.65 m Weight 61.235 kg Body Mass Index 22.4 - Constitutional Present: well nourished, well developed, thin, cooperative - Routine HEENT Exam Head: Present: normocephalic, atraumatic Eye: Present: EOMI, PERRL ENT: Present: mucous membranes moist - Routine Respiratory Exam Present: decreased breath sounds, distant breath sounds. Absent: respiratory distress, rhonchi, stridor, wheezes, crackles - Routine Cardiovascular Exam Present: RRR, no murmur - Routine Abdominal Exam Present: soft, non distended, non tender. Absent: normoactive bowel sounds ( Decreased ), guarding - Routine Extremities Exam Present: cyanosis, clubbing, edema (+2 BLD) - Routine Musculoskeletal Exam Musculoskeletal: Present: no clubbing or cyanosis, no joint swelling - Routine Skin Exam Present: dry, warm - Routine Neurological Exam Present: alert, CN II-XII intact, moving all extremities, vision grossly intact , hearing grossly intact. Absent: motor deficit - Routine Psychiatric Exam Present: normal affect, normal thought process, cooperative. 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 Hemoglobin decreased to 7.3. Sodium 131. LE edema noted. Will give Lasix 20mg IV x1 to help was free water. Continue TPN for nutritional support. Pain doing well with Duragesic patch - not needing Percocet or Dilaudid for breakthrough pain. Using Zofran once a day for nausea. PT/OT working with patient - will have nursing ambulate TID to help strength. Diet increasing gradually. Continue Marinol for appetite stimulation. Monitor lab. Case discussed with CM. Time spent with patient care 25 minutes. - Time spent with patient Time with patient PN: 25 minutes Hospital Course Summary Disclaimer: The visit summary below is not to be considered part of the above Progress Note. 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 Consult with Dr Heredia for Oncological evaluation and chemotherapy recommendations and management. PICC line for chemo. Start TPN for nutritional support due to PCM. Continue pain control - home medications, add IV dilaudid prn. Zofran for nausea control. Monitor blood sugars. SCD for DVT prevention. Discussed code status with patient. Request DNR. Order written. Care to return to Dr Sharma [place] [facility] [place]16 Continue TPN per pharmacy for nutrition support. Chemo per Dr. Heredia (Dr. Barton covering today) with R-CVP (rituxan, cytoxan, vincristine, pred) starting today PICC line has been placed and is functioning well Monitor closely for TLS; uric acid and LDH ordered with AM labs Check CMP, phos, Mg, CBC in AM Continue home meds for DM, hypothyroidism and CAD; monitor blood sugars Allow po intake as tolerated Monitor blood counts, transfuse PRBC if Hb <7 12/10/16 Continue TPN per pharmacy for nutrition support. Chemo completed 12/[address] Heredia (Dr[address] Barton covering today) with R-CVP ( rituxan, cytoxan, vincristine, pred) and tolerated well Monitor closely for worsenning TLS; uric acid, phos and LDH ordered again this evening and in AM Check CMP, phos, Mg, CBC in AM Continue home meds for DM, hypothyroidism and CAD; monitor blood sugars--> correction scale insulin increased to high scale --> will add levemir 10 units at HS as well, monitor AM glucose Allow po intake as tolerated Will need to remain inpatient for further monitoring of TLS. Cervical spine MRI planned per oncology as well due to worsening neck pain. 12/11/[address] still with decrease, will continue with TPN for support. Onc care as per Dr Heredia. LDH - Stable; not increasing or decreasing. Uric acid low. Sugars stable with current regimen. Continue to monitor. Encourage activities. Will consult PT/OT to help increase abilities. Continue to monitor lab. 12/12/16 Liver enzymes with marked increase today. CT abdomen/pelvis obtained to check on tube placement. Subcapsular left hepatic hematoma found. Likely contributing to pain. Possible increasing LFT and LDH as well. Discussed case with Dr Heredia-he is in discussion with Dr. Goodman regarding these findings. Will add Marinol to try to help stimulate appetite - treatment of tumor waldrop to improving symptoms. CT did show decrease of adenopathy. Continue with TPN for nutritional support. Sugars showing elevation due to TPN - increase Levemir to 15 units at night. Continue PT/OT to help increase abilities. 12/13/16 LFT decreasing from yesterday. Hemoglobin decreased to 7.3. Sodium 131. LE edema noted. Will give Lasix 20mg IV x1 to help was free water. Continue TPN for nutritional support. Pain doing well with Duragesic patch - not needing Percocet or Dilaudid for breakthrough pain. Using Zofran once a day for nausea. PT/OT working with patient - will have nursing ambulate TID to help strength. Diet increasing gradually. Continue Marinol for appetite stimulation. Monitor lab.
[2016-12-13] MEDS ORDERED: FUROSEMIDE 20 MG/2 ML INJECTION IVP ONE (13:15)
[2016-12-13] MEDS ORDERED: NS FLUSH BAG 500ml IV PRN (15:25)
[2016-12-13] MEDS ORDERED: DiphenhydrAMINE 25 MG CAPSULE PO ONE (15:25)
--- NOTE | 2016-12-13 15:35 | Progress Note ---
Oncology Subjective Feeling better today, eating most of his meals. Had a BM todayx3. No fever. Hb 7.3 Exam Vital signs: Temperature 97.3 F 12/13/16 14:56 Pulse Rate 75 12/13/16 14:56 Respiratory Rate 17 12/13/16 14:56 Blood Pressure 121/83 12/13/16 14:56 Pulse Oximetry 94 12/13/16 14:56 - Constitutional no acute distress, well nourished, cooperative - Routine Neck Exam Present: supple. Absent: JVD, lymphadenopathy - Routine Respiratory Exam Absent: rales, rhonchi, wheezes - Routine Cardiovascular Exam Present: RRR - Routine Abdominal Exam Present: soft, normoactive bowel sounds, tenderness Comments: Rt UOQ tenderness and mild bruises. Billiary tube in place draining. - Routine Neurological Exam Present: alert, oriented X3 Oncology Results - Labs CBC & Chem 7: 12/13/16 04:36 12/13/16 04:37 Labs: Short CBC 12/13/16 Range/Units 04:36 WBC 7.3 (4.5-11.0) T/MM3 Hgb 7.3 L D (13.5-17.5) GM/DL Hct 23.3 L (41-53) % Plt Count 445 H (130-400) T/MM3 BMP 12/13/16 04:37 Sodium 131 L Potassium 4.7 Chloride 99 Carbon Dioxide 29 BUN 25.0 H Creatinine 0.5 L Glucose 222 H Calcium 8.8 Liver Function 12/13/16 Range/Units 04:37 Total Bilirubin 0.60 (0.20-1.30) MG/DL AST 177 H D (17-59) U/L ALT 106 H (21-72) U/L Alkaline Phosphatase 183 H (38-126) U/L Albumin 2.6 L (3.5-5.0) G/DL Assessment and Plan Assessment and Plan: 1. 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 Allopurinol instituted for prevention of tumor lysis. Currently on Famvir for shingles prophylaxis. Had chemotherapy with our CVP on 12/09/16, tolerated well. 2. Subcapsular hepatic hematoma 2/2 billiar tube placement, stable. -Will transfuse one PRBCs and have patient go home tonight. -Then see [facility]. Hebert at [facility] for possible billiary tube removal. F/U in office next wk with CBC. - Time Spent With Patient Total time spent is greater than 50% in coordination of care (as documented) at patient's floor/unit and/or counseling patient: 25 - 35 minutes
[2016-12-13] MEDS: FAT EMULSION 20% 100 ML IV SCH (16:27)
[2016-12-13] MEDS ORDERED: INSULIN ASPART 100unit/ml INJECTION SQ ONE (18:45)
[2016-12-13] MEDS: ASPIRIN *EC* 81 MG TABLET PO SCH (21:14)
[2016-12-13] MEDS: FENOFIBRATE 160 MG TABLET PO SCH (21:14)
[2016-12-13] MEDS: LATANOPROST 0.005% EYE DROPS 2.5ml EACH EYE SCH (21:27)
[2016-12-13 23:47] VITALS: RESP 18
[2016-12-14] MEDS: LEVOTHYROXINE 25 MCG TABLET PO SCH (05:53)
[2016-12-14] MEDS: OMEPRAZOLE 20 MG CAPSULE PO SCH (05:53)
--- NOTE | 2016-12-14 07:36 | Progress Note ---
Subjective: F/U: Follicular lymphoma, Ab pain, anorexia Doing well this morning. Pain stable. Nausea controlled. TPN stopped last night and blood sugars stable. Breathing well. Ambulating well. Objective Vital signs: Temperature 97.1 F 12/13/16 23:46 Pulse Rate 72 12/13/16 23:46 Respiratory Rate 18 12/13/16 23:46 Blood Pressure 137/69 12/13/16 23:46 Pulse Oximetry 97 12/13/16 23:46 Rhythm: Normal Sinus Rhythm Height/Weight/BMI: Height 1.65 m Weight 61.235 kg Body Mass Index 22.4 - Constitutional Present: no acute distress, well nourished, well developed, thin, cooperative - Routine HEENT Exam Head: Present: normocephalic, atraumatic Eye: Present: EOMI, PERRL ENT: Present: mucous membranes moist - Routine Respiratory Exam Present: CTA bilaterally. Absent: respiratory distress, rhonchi, wheezes, crackles - Routine Cardiovascular Exam Present: RRR, no murmur - Routine Abdominal Exam Present: soft, normoactive bowel sounds, non distended, non tender - Routine Extremities Exam Present: edema (+1 BLE). Absent: cyanosis, clubbing - Routine Musculoskeletal Exam Musculoskeletal: Present: no clubbing or cyanosis, normal strength - Routine Skin Exam Present: dry, warm - Routine Neurological Exam Present: alert, CN II-XII intact, moving all extremities, vision grossly intact , hearing grossly intact. Absent: motor deficit, altered mental status - Routine Psychiatric Exam Present: normal affect, normal thought process, cooperative. 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 Will discharge to home with home health. Patient had apt in [place] for Biliary stent removal. Dr Heredia wants this removed as not draining and potential source of infection now that Chemo started. Will hold on metformin as oral drive decreased. May have liberalized diet due to anorexia. Continue Marinol for appetite stimulation. Encourage ambulation. F/U with Dr Heredia for onc care and Dr Sharma for PCP. See orders for details. Case discussed with nursing and Family. Time spent with care and discharge greater than 30 minutes. Hospital Course Summary Disclaimer: The visit summary below is not to be considered part of the above Progress Note. 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 Consult with Dr Heredia for Oncological evaluation and chemotherapy recommendations and management. PICC line for chemo. Start TPN for nutritional support due to PCM. Continue pain control - home medications, add IV dilaudid prn. Zofran for nausea control. Monitor blood sugars. SCD for DVT prevention. Discussed code status with patient. Request DNR. Order written. Care to return to Dr Sharma at time of discharge from [facility] [place]. 12/09/16 Continue TPN per pharmacy for nutrition support. Chemo per Dr. Heredia (Dr. Barton covering today) with R-CVP (rituxan, cytoxan, vincristine, pred) starting today PICC line has been placed and is functioning well Monitor closely for TLS; uric acid and LDH ordered with AM labs Check CMP, phos, Mg, CBC in AM Continue home meds for DM, hypothyroidism and CAD; monitor blood sugars Allow po intake as tolerated Monitor blood counts, transfuse PRBC if Hb <7 12/10/16 Continue TPN per pharmacy for nutrition support. Chemo completed 12/[address] Heredia (Dr[address] Barton covering today) with R-CVP ( rituxan, cytoxan, vincristine, pred) and tolerated well Monitor closely for worsenning TLS; uric acid, phos and LDH ordered again this evening and in AM Check CMP, phos, Mg, CBC in AM Continue home meds for DM, hypothyroidism and CAD; monitor blood sugars--> correction scale insulin increased to high scale --> will add levemir 10 units at HS as well, monitor AM glucose Allow po intake as tolerated Will need to remain inpatient for further monitoring of TLS. Cervical spine MRI planned per oncology as well due to worsening neck pain. 12/11/[address] still with decrease, will continue with TPN for support. Onc care as per Dr Heredia. LDH - Stable; not increasing or decreasing. Uric acid low. Sugars stable with current regimen. Continue to monitor. Encourage activities. Will consult PT/OT to help increase abilities. Continue to monitor lab. 12/12/16 Liver enzymes with marked increase today. CT abdomen/pelvis obtained to check on tube placement. Subcapsular left hepatic hematoma found. Likely contributing to pain. Possible increasing LFT and LDH as well. Discussed case with Dr Heredia-he is in discussion with Dr. Goodman regarding these findings. Will add Marinol to try to help stimulate appetite - treatment of tumor waldrop to improving symptoms. CT did show decrease of adenopathy. Continue with TPN for nutritional support. Sugars showing elevation due to TPN - increase Levemir to 15 units at night. Continue PT/OT to help increase abilities. 12/13/16 LFT decreasing from yesterday. Hemoglobin decreased to 7.3. Sodium 131. LE edema noted. Will give Lasix 20mg IV x1 to help was free water. Continue TPN for nutritional support. Pain doing well with Duragesic patch - not needing Percocet or Dilaudid for breakthrough pain. Using Zofran once a day for nausea. PT/OT working with patient - will have nursing ambulate TID to help strength. Diet increasing gradually. Continue Marinol for appetite stimulation. Discussed patient case with Dr Heredia this afternoon. He recommends transfusion of 1 unit pRBC due to anemia. Transfusion initiated. Also recommends removal of biliary stent as soon as able as stent is not draining and potential for infection as pt undergoing chemo. Has apt tomorrow in [place] to remove stent. Dr Heredia would like stent removed there. With discharge anticipated for tomorrow, will work to stop TPN. Stop Lantus to minimize risk for hypoglycemia. TPN stopped due to blood transfusion (cannot do both at once). ISS stopped and more frequent blood sugar monitoring orders to try to avoid hypoglycemia. 10/05/17 Hemoglobin improved to 9.4 post transfusion yesterday. Blood sugars have remained stable with discontinuation of TPN. PICC removed - worry could become problematic at home as patient and his with some cognitive deficit. Will discharge to home with home health. Patient had apt in [place] for Biliary stent removal. Dr Heredia wants this removed as not draining and potential source of infection now that Chemo started. Will hold on metformin as oral drive decreased. May have liberalized diet due to anorexia. Continue Marinol for appetite stimulation. Encourage ambulation. F/U with Dr Heredia for onc care and Dr Sharma for PCP. See orders for details.
[2016-12-14 07:37] VITALS: BP 140/69; PULSE 70; TEMP 95.3; O2SAT 98
[2016-12-14] MEDS ORDERED: NEOMYCIN/POLYMYXIN/BACITRACIN OINT PACKET TP ONE (07:40)
--- NOTE | 2016-12-14 07:43 | Discharge Summary ---
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 PICC removed at discharge. Transfusion of 1 unit pRBC 12/13/16 - Laboratory Labs: Admit Lab 12/08/16 17:58 WBC 9.6 Hgb 9.4 L Hct 29.0 L MCV 87.6 Plt Count 658 H D Neutrophils % (Manual) 90.0 H Admit Lab 12/08/16 17:58 Sodium 136 Potassium 3.8 Chloride 101 Carbon Dioxide 23 BUN 17.0 Creatinine 0.8 GFR Calculation 92 Glucose 150 H Calculated Osmolality 267 Calcium 9.5 Phosphorus 3.2 Magnesium 1.7 Total Bilirubin 0.80 AST 39 ALT 42 Alkaline Phosphatase 189 H Albumin 3.5 Albumin/Globulin Ratio 1.0 L Prealbumin 11.7 L Anemia Lab 12/11/16 12/11/16 09:29 09:29 Iron 136 TIBC 220 L % Saturation 62 H Erythropoietin 287 H Ferritin 413 Vitamin B12 > 1000 H Methylmalonic Acid Pending Folate 8.7 Homocysteine 9.0 12/14/16 04:27 12/14/16 04:27 Discharge Lab 12/14/16 04:27 Uric Acid 1.9 L Calcium 9.2 Total Bilirubin 0.90 AST 214 H ALT 127 H Alkaline Phosphatase 204 H Lactate Dehydrogenase 1279 H Total Protein 5.9 L Albumin 3.0 L - Radiology Radiology: Date of Exam: 12/08/16 Type of Exam: XR chest post-procedure 1V Reason for Exam(s): PICC placement Findings: New left PICC line in place with the tip projecting over the mid SVC. Lungs are otherwise stable with increased linear markings in both mid to lower lung jeffery. No pneumothorax. Cardiomediastinal contours are stable. Impression: New left PICC line tip projects over the mid SVC. Date of Exam: 12/11/16 EXAM: MR cervical spine wo/w con IMPRESSION: 1. At C5-6 there is disc bulge with convex mass effect on the anterior spinal cord. The posterior subarachnoid space remains patent. 2. At C6-7 disc bulge and posterior bony ridging has convex mass effect on the anterior spinal cord. Posterior subarachnoid space remains patent. 3. At C4-5 there is disc bulge flattening the anterior thecal sac and comes close to the anterior cord but may not contact the cord. Date of Exam: 12/12/16 PROCEDURE: CT abdomen w con Findings: Scattered areas of consolidation in the lower lung jeffery with scarring. There is subcapsular fluid collection along the left lobe of the liver measuring up to 3.8 x 11.6 x 6.7 cm in size. This probably represents subacute subcapsular hematoma. There is an internal/external bile drain running along the margin of this collection with moderate left sided bile duct dilatation. No enhancing liver mass. The gallbladder is unremarkable. Large areas of low attenuation throughout the spleen are grossly stable from the comparison studies. Perisplenic lymphadenopathy is smaller overall, now measuring 7 x 2.7 cm compared to 7.7 x 3.5 cm previously. The pancreas is unchanged. Surgical clips along the mid right kidney medially. Kidneys are stable in appearance. Infiltrative mass surrounding the SMA is redemonstrated. This has decreased in size, now measuring 5.9 x 3.5 cm on axial image #36 compared to 6.2 x 5 cm previously. Other area pancreatic lymph nodes are also some somewhat smaller. No new or worsening adenopathy seen in the abdomen. The visualized loops of small and large bowel show no acute findings. There is some new free fluid along the left paracolic gutter that has developed in the interval. There is also a small amount of fluid in the retrocrural space adjacent to the lower esophageal segment. Bone windows are unchanged. Impression: 1. New but subacute appearing subcapsular left hepatic hematoma. 2. Improving adenopathy within the abdomen. 3. New small volume ascites. History of Present Illness HPI: 86 y/o male made direct admit to [facility] [place] at the request of Dr Heredia to initiate Chemotherapy. 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 Last week underwent percutaneous biliary stent placement on 11/30 to elevate biliary obstruction. Was hospitalized at [facility] [place] from 12/04 until 12/05 secondary to fever and leukocytosis. Since discharge, has not had recurrence of fever. Has had increasing ab pain - intractable pain yesterday. Fentanyl patch doubled, which seems to have helped. Oral drive variable. Notes nausea, but not had emesis. Bowels have been moving-no constipation or diarrhea (is using Prune juice to help bowel function). Breathing well-no cough, congestion, or SOA. Denies chest pressure or pain. For complete details of the H&P refer to that document. Objective Vital signs: Temperature 95.3 F L 12/14/16 07:36 Pulse Rate 70 12/14/16 07:36 Respiratory Rate 18 12/14/16 07:36 Blood Pressure 140/69 H 12/14/16 07:36 Pulse Oximetry 98 12/14/16 07:36 Rhythm: Normal Sinus Rhythm Height/Weight/BMI: Height 1.65 m Weight 61.235 kg Body Mass Index 22.4 Hospital Course This is a general summary of the patient's hospital course. For more details refer to the complete medical record. 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 Consult with Dr Heredia for Oncological evaluation and chemotherapy recommendations and management. PICC line for chemo. Start TPN for nutritional support due to PCM. Continue pain control - home medications, add IV dilaudid prn. Zofran for nausea control. Monitor blood sugars. SCD for DVT prevention. Discussed code status with patient. Request DNR. Order written. Care to return to Dr Sharma at time of discharge from [facility] [place]. 12/09/16 Continue TPN per pharmacy for nutrition support. Chemo per Dr. Heredia (Dr. Barton covering today) with R-CVP (rituxan, cytoxan, vincristine, pred) starting today PICC line has been placed and is functioning well Monitor closely for TLS; uric acid and LDH ordered with AM labs Check CMP, phos, Mg, CBC in AM Continue home meds for DM, hypothyroidism and CAD; monitor blood sugars Allow po intake as tolerated Monitor blood counts, transfuse PRBC if Hb <7 12/10/16 Continue TPN per pharmacy for nutrition support. Chemo completed 12/[address] Heredia (Dr[address] Barton covering today) with R-CVP ( rituxan, cytoxan, vincristine, pred) and tolerated well Monitor closely for worsenning TLS; uric acid, phos and LDH ordered again this evening and in AM Check CMP, phos, Mg, CBC in AM Continue home meds for DM, hypothyroidism and CAD; monitor blood sugars--> correction scale insulin increased to high scale --> will add levemir 10 units at HS as well, monitor AM glucose Allow po intake as tolerated Will need to remain inpatient for further monitoring of TLS. Cervical spine MRI planned per oncology as well due to worsening neck pain. 12/11/[address] still with decrease, will continue with TPN for support. Onc care as per Dr Heredia. LDH - Stable; not increasing or decreasing. Uric acid low. Sugars stable with current regimen. Continue to monitor. Encourage activities. Will consult PT/OT to help increase abilities. Continue to monitor lab. 12/12/16 Liver enzymes with marked increase today. CT abdomen/pelvis obtained to check on tube placement. Subcapsular left hepatic hematoma found. Likely contributing to pain. Possible increasing LFT and LDH as well. Discussed case with Dr Heredia-he is in discussion with Dr. Goodman regarding these findings. Will add Marinol to try to help stimulate appetite - treatment of tumor waldrop to improving symptoms. CT did show decrease of adenopathy. Continue with TPN for nutritional support. Sugars showing elevation due to TPN - increase Levemir to 15 units at night. Continue PT/OT to help increase abilities. 12/13/16 LFT decreasing from yesterday. Hemoglobin decreased to 7.3. Sodium 131. LE edema noted. Will give Lasix 20mg IV x1 to help was free water. Continue TPN for nutritional support. Pain doing well with Duragesic patch - not needing Percocet or Dilaudid for breakthrough pain. Using Zofran once a day for nausea. PT/OT working with patient - will have nursing ambulate TID to help strength. Diet increasing gradually. Continue Marinol for appetite stimulation. Discussed patient case with Dr Heredia this afternoon. He recommends transfusion of 1 unit pRBC due to anemia. Transfusion initiated. Also recommends removal of biliary stent as soon as able as stent is not draining and potential for infection as pt undergoing chemo. Has apt tomorrow in [place] to remove stent. Dr Heredia would like stent removed there. With discharge anticipated for tomorrow, will work to stop TPN. Stop Lantus to minimize risk for hypoglycemia. TPN stopped due to blood transfusion (cannot do both at once). ISS stopped and more frequent blood sugar monitoring orders to try to avoid hypoglycemia. 12/14/16 Hemoglobin improved to 9.4 post transfusion yesterday. Blood sugars have remained stable with discontinuation of TPN. PICC removed - worry could become problematic at home as patient and his with some cognitive deficit. Will discharge to home with home health. Patient had apt in [place] for Biliary stent removal. Dr Heredia wants this removed as not draining and potential source of infection now that Chemo started. Will hold on metformin as oral drive decreased. May have liberalized diet due to anorexia. Continue Marinol for appetite stimulation. Encourage ambulation. F/U with Dr Heredia for onc care and Dr Sharma for PCP. See orders for details. Time spent with patient: discharge greater than 30 minutes DVT Prophylaxis: SCD's Discharge Plan - Med Rec/Dispo Referrals/Follow Up: Danita Sharma MD [Family Provider] - 1 Week (Hospital follow up) Yanci Heredia MD [Physician] - (As scheduled for oncology care ) [place] Instructions: Heart Failure (GEN), Mitral Regurgitation (GEN) Prescriptions: New Milk of Magnesia [Mom] 30 ml PO DAILY PRN udc PRN Reason: Constipation Bisacodyl Supp [Dulcolax] 10 mg RECTALLY DAILY PRN supp PRN Reason: Constipation Allopurinol [Zyloprim] 300 mg PO DAILY #30 tab Dronabinol [Marinol] 5 mg PO BID #60 cap Ondansetron HCl 4 mg PO Q6H PRN #40 tab PRN Reason: Nausea Continue Atenolol 25 mg PO BID #0 Ascorbic Acid [Vitamin C] 500 mg PO DAILY #0 Aspirin [Aspir 81] 81 mg PO HS #0 Multivitamin with Minerals [Multivitamins with Minerals] 1 tab PO HS #0 Omeprazole 40 mg PO BID Famciclovir [Famvir] 500 mg PO BID Losartan [Cozaar] 50 mg PO HS Levothyroxine Tab [Synthroid] 25 mcg PO DAILY Red Yeast Rice 600 mg PO BID Letart-3/Dha/Epa/Fish Oil [Fish Oil 1,000 mg Softgel] 2,000 mg PO DAILY Oxycodone/Acetaminophen 5/325 [Percocet 5/325] 1 - 2 tab PO Q4H PRN PRN Reason: Pain Cyanocobalamin (Vitamin B-12) [Vitamin B-12] 1,000 mcg PO DAILY Cholecalciferol (Vitamin D3) [Vitamin D3] 1,000 unit PO DAILY Calcium Carbonate [Caltrate] 600 mg PO DAILY fentaNYL [Fentanyl] 50 patch TD Q72H MDD 50 Polyethylene Glycol 3350 [Miralax] 17 gm PO DAILY PRN #1 bottle PRN Reason: Constipation Senna + Docusate [Senna Plus Tablet] 1 tab PO BID PRN tablet PRN Reason: Constipation Phenytoin Sodium Extended 200 mg PO BID #0 Fenofibrate [Lofibra] 160 mg PO HS Cod Liver Oil 1 cap PO DAILY Ubidecarenone/Vit E Acet [Co Q-10 100 mg Softgel] 100 mg PO DAILY Latanoprost 1 drop EACH EYE HS Chlorpheniramine [Chlor-Trimeton] 4 mg PO BID Amoxicillin/Potassium Clav [Amox-Clav 875-125 mg Tablet] 875 mg PO BIDWM #10 tab Discontinued Metformin [Glucophage] 250 mg PO BID #0 Discharge Instructions/Outpatient Orders: Final Provider Discharge Instructions Location: Determined By Patient - Disposition [address] [place] [address] Service
== END 2016-12-14 08:05 | disposition home health service (06) | DRG 847 ==
LOC: MED → OBSVTOIN 17:27
PROVIDERS: ADMIT Hospitalist; ATTEND Hospitalist

== ENCOUNTER 2017-01-28 08:29 | Observation (INO) ==
--- NOTE | 2017-01-28 08:48 | Emergency Department Report ---
Neuro HPI - General Stated Complaint: left side facial drooping, poss stroke Time Seen by Provider: 01/28/17 08:31 Source: patient, family Mode of arrival: ambulatory Limitations: no limitations - History of Present Illness HPI Narrative: 86yo man presented to the ER by for left-sided facial droop. Pt woke up this AM at 0600; is unsure whether pt had sx at that time or whether they started shortly after. She first noticed that he had difficulty putting his dentures into his mouth; she then noted the left-sided facial droop and dysarthria. At that time, decided to bring the pt to the ER. Pt is being treated for non-Hodgkin's lymphoma; chemo was recently stopped for pt to have power port adjusted and G-tube placed. Those procedures were completed 1 week ago; he is due to re-start chemo. Pt is not taking any anti- coagulants. Onset (ago): hour(s) Time: 0600 Time Estimated: Yes (Pt awoke with sx) Last Observed Normal: 20:30 Timing confirmed by: spouse Location: speech, left face, dysarthria History of same: No Severity: mild Quality: weak Relieving factors: none Exacerbating factors: none Context: other On Anticoagulants: No Associated symptoms: denies other symptoms Treatments Prior to Arrival: none - Related Data Home Medications: Home Medications Medication Instructions Recorded Confirmed Ascorbic Acid [Vitamin C] 500 mg PEG DAILY #0 09/18/15 01/28/17 Aspirin [Aspir 81] 81 mg PEG AM #0 09/18/15 01/28/17 Atenolol 25 mg PO BID #0 09/18/15 01/28/17 Multivitamin with Minerals 1 tab PEG HS #0 09/18/15 01/28/17 [Multivitamins with Minerals] Phenytoin Sodium Extended 2 tab PEG BID #0 09/18/15 01/28/17 Calcium Carbonate [Caltrate] 600 mg PEG DAILY 12/04/16 01/28/17 Chlorpheniramine [Chlor-Trimeton] 4 mg PEG BID 12/04/16 01/28/17 Cod Liver Oil 1 cap PEG DAILY 12/04/16 01/28/17 Cyanocobalamin (Vitamin B-12) 1,000 mcg PEG HS 12/04/16 01/28/17 [Vitamin B-12] Famciclovir [Famvir] 500 mg PEG BID 12/04/16 01/28/17 Fenofibrate [Lofibra] 160 mg PEG HS 12/04/16 01/28/17 Latanoprost 1 drop EACH EYE HS 12/04/16 01/28/17 Losartan [Cozaar] 50 mg PEG HS 12/04/16 01/28/17 [place]-3/Dha/Epa/Fish Oil [Fish Oil 2,000 mg PEG DAILY 12/04/16 01/28/17 1,000 mg Softgel] Omeprazole 40 mg PEG BID 12/04/16 01/28/17 Oxycodone/Acetaminophen 5/325 1 - 2 tab PEG Q4H PRN 12/04/16 01/28/17 [Percocet 5/325] Red Yeast Rice 600 mg PEG BID 12/04/16 01/28/17 Ubidecarenone/Vit E Acet [Co Q-10 100 mg PEG DAILY 12/04/16 01/28/17 100 mg Softgel] Glucophage (metformin) 500 mg 250 mg PEG BID tab 01/02/17 01/28/17 tablet scopolamine 1 mg over 3 days 1 patch TD Q3D PRN 01/02/17 01/28/17 transdermal patch fentanyl 25 mcg/hr transdermal 1 patch TD Q72H 01/04/17 01/28/17 patch levothyroxine 75 mcg capsule 75 mcg PEG QAM cap 01/04/17 01/28/17 sucralfate 1 gram tablet 1 g PEG TID tab 01/04/17 01/28/17 Dronabinol [Marinol] 2.5 mg PEG BID 01/26/17 01/28/17 Allopurinol [Zyloprim] 300 mg PEG DAILY 01/28/17 01/28/17 Milk of Magnesia [Mom] 30 ml PEG DAILY PRN 01/28/17 01/28/17 Ondansetron HCl 4 mg PEG Q6H PRN 01/28/17 01/28/17 Polyethylene Glycol 3350 [Miralax] 17 gm PEG DAILY PRN 01/28/17 01/28/17 Senna + Docusate [Senna Plus 1 tab PEG BID PRN 01/28/17 01/28/17 Tablet] Previous Rx's Medication Instructions Recorded Bisacodyl Supp [Dulcolax] 10 mg RECTALLY DAILY PRN 12/14/16 suppositor Allergies/Adverse Reactions: Allergies Allergy/AdvReac Type Severity Reaction Status Date / Time No Known Allergies Allergy Verified 01/28/17 09:02 [facility] Patient Stated Medical History Cataracts Yes: bilateral-removed Glaucoma Yes Hearing Loss Yes Other HEENT Yes: BILATERAL HEARING AIDS Myocardial Infarction Yes: 1994, 2005 Other Cardiology Yes: cleared per Dr. Laura within last month, neg stress test Sleep Apnea Yes: undiagnosed Diabetes Mellitus Type 2 Yes: oral meds does not check bs at home, bs 152 this am Gastroesophageal Reflux Yes Disease Hiatal Hernia Yes Other GI Yes: barretts Hx Renal Disease No Other Yes: water filled cyst Anemia Yes Cellulitis Yes Other Yes: cancer lymphoma Clinic Medical History (Last Updated 01/02/17 @ 09:44 by Adán Enrique MD) Coronary artery disease (Chronic Medical) [employer]: Dr. 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 Medical History Updates: Lymphoma. CAD. GERD. Shingles Surgical History: * ERCP with internal drainage procedure and unsuccessful drain placement - 12/18/[address] Agudelo at [facility] in [place], [place]. * Percutaneous biliary stent - 11/30/[address] Hebert at [facility] in [place], [place]. But Failed. * Cardiac stent - [address] Noe in [place], [place]. * CABG x 3 - [address] Noe in [place], [place]. * CABG x 4 1994 at [facility] in [place], [place]. * Removal of benign right kidney cyst - [address] Tellez in [place], [place]. * Left rotator cuff repair - Dr. Land, [facility] in [place], [place]. * Tonsillectomy - childhood [place] by DR. Drew in [facility]. Family History: Family History (Last Updated 01/02/17 @ 08:45 by Kerri Saucedo) Father , at 86 MVA (motor vehicle accident) Mother , at 84 Anesthesia complication Asthma Brother , 80 Pancreatic cancer, Onset Age: 79 Brother Hiatal hernia, Onset Age: 78 Complications - Cause of Sister , 80 Leukemia, Onset Age: 77 Sister , 80 Colon abnormality multiple colon resections, possible complication- Cause of Son Metabolic acidosis causing brain damage - Social History Smoking status: Never smoker Course - Consultations Consultation #1: Hospitalist: Dr. Singh accepts pt for admission and further eval/stroke work up. Time: 09:46 Consultation #2: Teleneuro: Recommends not giving tPA; give 325mg ASA for anticoag if pt passes bedside swallow. Time: 08:45 Vital Signs Temperature 97.9 F 01/28/17 08:29 Pulse Rate 66 01/28/17 08:29 Respiratory Rate 18 01/28/17 08:29 Blood Pressure 177/81 H 01/28/17 08:29 Pulse Oximetry 97 01/28/17 08:29 Temperature 97.9 F 01/28/17 08:29 Pulse Rate 64 01/28/17 09:30 Respiratory Rate 25 H 01/28/17 09:30 Blood Pressure 156/74 H 01/28/17 09:30 Pulse Oximetry 96 01/28/17 09:30 Neuro Symptoms/Deficit - [facility] Narrative Medical decision making narrative: Pt with left-sided facial droop on presentation. When he returned from CT, he had facial droop. Tele-neuro recommended not giving tPA; give 325mg ASA for anticoag if pt passes bedside swallow. Hospitalist has accepted pt for admission for further eval/obs. - Differential Diagnosis Likely: delirium, subarachnoid hemorrhage, peripheral neuropathy, cerebrovascular accident, transient cerebral ischemia - Medical Records Attestation: I reviewed the patient's medical records. - Lab Data Attestation: I reviewed the patient's lab results. Result diagrams: 01/28/17 08:55 01/28/17 08:55 Lab Results 01/28/17 01/28/17 01/28/17 Range/Units 08:55 08:55 08:55 WBC 13.3 H (4.5-11.0) T/MM3 RBC 4.13 L (4.50-5.90) M/MM3 Hgb 12.0 L (13.5-17.5) GM/DL Hct 37.0 L (41-53) % MCV 89.6 (80-100) UM3 MCH 29.1 (26-34) UUG MCHC 32.4 (31-37) GM/DL RDW Std Deviation 61.7 H (36.9-50.2) FL Plt Count 239 (130-400) T/MM3 MPV 9.2 L (9.4-12.4) UM3 Immature Gran % (Auto) 0.8 H (0.0-0.5) % Neut % (Auto) 84.3 H (33-66) % Lymph % (Auto) 8.9 L (23-45) % Williams % (Auto) 5.8 (0-9.0) % Eos % (Auto) 0.0 (0-4) % Baso % (Auto) 0.2 (0-2) % Neut # (Auto) 11.2 H (1.8-7.7) T/MM3 Lymph # (Auto) 1.2 (1-4.8) T/MM3 Williams # (Auto) 0.8 (0-0.8) T/MM3 Eos # (Auto) 0.0 (0-0.5) T/MM3 Baso # (Auto) 0.0 (0-0.2) T/MM3 Abs Immat Gran (auto) 0.10 H (0.00-0.03) T/MM3 INR 1.16 (0.99-1.21) APTT 28.5 (24-36) SEC Turbidity < 20 (0-20) Sodium 140 (134-144) MEQ/L Potassium 3.8 (3.6-5) MEQ/L Chloride 106 (98-107) MEQ/L Carbon Dioxide 23 (22-30) MEQ/L Anion Gap 11 (5-15) MEQ/L BUN 21.0 H (9-20) MG/DL Creatinine 0.8 (0.8-1.5) MG/DL GFR Calculation 92 BUN/Creatinine Ratio 26 (6-26) RATIO Glucose 152 H (75-110) MG/DL Calculated Osmolality 275 (261-280) MOSM/KG Calcium 10.0 (8.4-10.2) MG/DL Total Bilirubin 0.90 (0.20-1.30) MG/DL Icterus Index < 2 (0-7) AST 80 H (17-59) U/L ALT 83 H (21-72) U/L Alkaline Phosphatase 233 H (38-126) U/L Troponin I 0.013 (0-0.12) ng/ml Total Protein 7.7 (6.3-8.2) G/DL Albumin 4.0 (3.5-5.0) G/DL Globulin 3.7 H (2.4-3.6) G/DL Albumin/Globulin Ratio 1.1 (1.1-2.2) RATIO Specimen Hemolysis < 15 (0-25) - Radiology Data Attestation: I reviewed the patient's radiology results. FINDINGS: Brain: There is no acute intracranial hemorrhage, cerebral edema, or midline shift. A chronic left frontal lobe infarct is present. There is a tiny chronic infarct in the right frontal convexity. Small chronic infarcts are noted in the left caudate head and bilateral cerebellar hemispheres. Chronic microvascular ischemic changes are seen in the periventricular white matter. Age -related cerebral and cerebellar volume loss is present. Ventricles: There is no hydrocephalus. Bones/joints: Unremarkable. No acute fracture. Soft tissues: Unremarkable. Vasculature: Atherosclerotic calcifications are seen involving the cavernous carotid arteries. Sinuses: There is no acute sinusitis. Mastoid air cells: The mastoid air cells are clear. Orbits: The included orbital structures are unremarkable. IMPRESSION: 1. No acute intracranial abnormality. 2. Chronic findings as discussed above. - EKG Data EKG #1 EKG attestation: Yes: I reviewed and interpreted this EKG. Rate: normal Rhythm: junctional Webber/QRS: normal Disposition Prescriptions: No Action Atenolol 25 mg PO BID #0 Ascorbic Acid [Vitamin C] 500 mg PEG DAILY #0 Aspirin [Aspir 81] 81 mg PEG AM #0 Multivitamin with Minerals [Multivitamins with Minerals] 1 tab PEG HS #0 Omeprazole 40 mg PEG BID Famciclovir [Famvir] 500 mg PEG BID Losartan [Cozaar] 50 mg PEG HS Red Yeast Rice 600 mg PEG BID [place]-3/Dha/Epa/Fish Oil [Fish Oil 1,000 mg Softgel] 2,000 mg PEG DAILY Oxycodone/Acetaminophen 5/325 [Percocet 5/325] 1 - 2 tab PEG Q4H PRN PRN Reason: Pain Cyanocobalamin (Vitamin B-12) [Vitamin B-12] 1,000 mcg PEG HS Calcium Carbonate [Caltrate] 600 mg PEG DAILY Bisacodyl Supp [Dulcolax] 10 mg RECTALLY DAILY PRN suppositor PRN Reason: Constipation Senna + Docusate [Senna Plus Tablet] 1 tab PEG BID PRN PRN Reason: Constipation Polyethylene Glycol 3350 [Miralax] 17 gm PEG DAILY PRN PRN Reason: Constipation Ondansetron HCl 4 mg PEG Q6H PRN PRN Reason: Nausea Milk of Magnesia [Mom] 30 ml PEG DAILY PRN PRN Reason: Constipation Allopurinol [Zyloprim] 300 mg PEG DAILY Phenytoin Sodium Extended 2 tab PEG BID #0 Fenofibrate [Lofibra] 160 mg PEG HS Cod Liver Oil 1 cap PEG DAILY Ubidecarenone/Vit E Acet [Co Q-10 100 mg Softgel] 100 mg PEG DAILY Latanoprost 1 drop EACH EYE HS Chlorpheniramine [Chlor-Trimeton] 4 mg PEG BID Dronabinol [Marinol] 2.5 mg PEG BID Glucophage (metformin) 500 mg tablet 250 mg PEG BID tab scopolamine 1 mg over 3 days transdermal patch 1 patch TD Q3D PRN PRN Reason: Nausea levothyroxine 75 mcg capsule 75 mcg PEG QAM cap sucralfate 1 gram tablet 1 g PEG TID tab fentanyl 25 mcg/hr transdermal patch 1 patch TD Q72H Referrals: Danita Sharma MD [Family Provider] -
[2017-01-28] MEDS ORDERED: ASPIRIN 81 MG CHEWABLE TABLET PO ONE (10:00)
[2017-01-28 10:53] VITALS: BMI 19.1
--- NOTE | 2017-01-28 10:58 | CT Scan Report ---
Indication: Left-sided facial droop PROCEDURE: CT head/brain wo con: Encounter: Initial Comparison: September 18, 2015 Technique: Axial CT images through the head were performed without contrast. Iterative Reconstruction dose reducing technique was utilized. 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 Small area of encephalomalacia in the right frontal lobe as well. Moderate atrophy. Chronic lacunar infarcts in the basal ganglia. The ventricles are stable. There are scattered areas of low attenuation in the white matter which most likely represent changes from chronic microvascular ischemia. The brainstem, cerebellum, and cerebral hemispheres otherwise have a normal morphology and CT attenuation. There is no evidence of midline displacement. No hemorrhage, signs of acute territorial stroke, mass effect, mass lesions, or edema is evident. The visualized portions of the skull base, midface, and calvarium demonstrate no abnormality. The paranasal sinuses are well aerated and free of significant disease. The tympanic and mastoid cavities appear normal. IMPRESSION: No acute intracranial abnormality or hemorrhage. There is a preliminary report by [employer] radiologic. .
[2017-01-28 11:01] VITALS: RESP 16
[2017-01-28] MEDS ORDERED: BISACODYL 10 MG SUPPOSITORY RECTALLY PRN (14:07)
[2017-01-28] MEDS ORDERED: SCOPOLAMINE 1.5 MG TD PRN (14:07)
[2017-01-28] MEDS ORDERED: Oxycodone/Acetaminophen 5/325 1 TAB PEG PRN (14:07)
[2017-01-28] MEDS ORDERED: SENNA + DOCUSATE TABLET PEG PRN (14:07)
[2017-01-28] MEDS ORDERED: ONDANSETRON ODT 4 MG TABLET PEG PRN (14:07)
[2017-01-28] MEDS ORDERED: CALCIUM PO SCH (14:15)
[2017-01-28] MEDS ORDERED: VIT D PO SCH (14:15)
--- NOTE | 2017-01-28 14:21 | History & Physical Report ---
History of Present Illness Date: 01/28/17 Chief complaint: right sided facial droop, lymphoma HPI: Ross Hurtado (Jim) is a very pleasant 86-year-old patient of Dr. Sharma who was brought to [facility] emergency department today, 01/28/17, by his , Billie, and daughter for evaluation of facial droop. Tobi has a complex medical history including significant coronary artery disease with prior CABG x 4 and stent placement as well as type II diabetes mellitus, hypercholesterolemia, hypertension and hypothyroidism. On November 06, [address] which revealed a pancreatic soft tissue mass and adenopathy with additional mesenteric adenopathy encasing the superior mesenteric artery. The CT also demonstrated lesions within the spleen and bile duct obstruction. Endoscopic ultrasound directed fine-needle aspiration of the mass was suggestive of lymphoma. 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 He has since been following with Dr. Heredia and elected to undergo chemotherapy. Due to his comorbid conditions, he is not a candidate for aggressive therapy. He has received 2 rounds of chemo with rituxan cytoxan vincristine prednisone (R-CVP). He was scheduled to receive his 3rd round at the beginning of January but treatment was postponed until due to persistent weight loss. Family reports that he has been losing approximately 5 pounds per week. He was reportedly 122 lbs on 01/11 and is currently 111 lbs on admission. Due to his weigh loss which was precipitated by intractable nausea in November and compounded with the chemotherapy, he underwent Power Port placement by Dr. Enrique on 01/10 followed by PEG placement by Dr. Manjarrez on 01/26/17. Family states that since his PEG placement on Sunday, he has received minimal nutrition, but was able to receive his evening medications crushed via PEG as well as about 12 ozs of Ensure last night. His daughter recalls that Tobi appeared to be "fixated" on his PEG tube, often picking it up and moving it around and was not easily re-directible, which she states is unusual, but didn't think more about it. This morning around 0630, his Billie noticed that he was having increased difficulty putting in his dentures and required her assistance which she states has never happened before. Around 07 his daughter reports that she noticed his speech was unintelligible and upon closer look, she noticed a new left sided facial droop. 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 Upon return to the ED from CT it was noted that he had a RIGHT sided facial droop. Labs were obtained and revealed new leukocytosis (WBC 13.3) and persistent anemia with stable hemoglobin at 12.0. BMP was unremarkable. Liver enzymes were slightly more elevated as compared to recent labs on 01/26/17. Troponin was 0.013. The tele-neurologist was consulted in the ED and did not recommend tPA to be given as the last known time at baseline was more than 4.5 hours. Tobi admits to taking ASA 81mg daily and denies any history of a-fib or arrhythmia. He was seen and evaluated by Dr. Hensley in November 2016. He underwent a negative stress test. At that time, Dr. Hensley discontinued his home statin and Plavix , though it is unclear as to why. Family has all suspected that Tobi has had prior CVAs. Due to his right sided facial droop and significant comorbidities, Dr. Jensen was consulted and Tobi was admitted into observation stutus for further evaluation and close cardiac and neurologic monitoring. His length of stay is not expected to exceed more than 2 over nights. On exam, he is seen in his room, #[id number]. His daughter and are at the bedside and they contribute to his history. He denies any complaints or concerns. No recent fever, chills, dizziness, lightheadedness, headache, change in vision, chest pain, shortness of breath, abdominal pain, vomiting or dysuria. He does admit to decreased urination since his PEG placement but admits to having very little input. Code status was discussed and he states " let them try for a little bit but not long". Will make the patient a full code. Discussion with family following exam revealed that the family is questioning if they are able to continue the level of care Tobi needs at home and requested guidance from case management if possible. Review of Systems All systems PM: 10-point ROS was reviewed, no additional remarkable complaints except - Constitutional Constitutional: Present: anorexia, fatigue, malaise, weakness, weight loss. Absent: chills, fever(s), headache(s) - EENMT Eyes: Absent: blurry vision, change in vision, diplopia Ears: Absent: ear pain Balance: Present: falling to one side (wobbled while walking last night to the left). Absent: vertigo Nose: Absent: nosebleeds Mouth/Throat: Present: changes in swallowing, dry mouth. Absent: pain, sore throat, sores, ulcers, blisters - Cardiovascular Cardiovascular: Absent: chest pain, palpitations, syncope, dyspnea on exertion, orthopnea, edema Vascular: Absent: pallor of an extermity, pedal edema, unilateral swelling - Respiratory Respiratory: Present: cough, excessive phlegm production. Absent: dyspnea, hemoptysis, dyspnea on exertion, wheezing, pain on inspiration, chest congestion - Gastrointestinal Gastrointestinal: Present: constipation, nausea. Absent: abdominal pain, diarrhea, hematemesis, hematochezia, melena, vomiting - Genitourinary Genitourinary: Absent: dysuria, flank pain, hematuria - Musculoskeletal Musculoskeletal: Present: muscle weakness. Absent: deformity, neck pain - Integumentary/Breasts Integumentary: Absent: rash - Neurological Neurological: Present: abnormal speech, weakness. 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 Heredia. Anemia. Protein calorie malnutrition. Dysphagia - Barium swallow test 01/24/17 revealed delayed aspiration with tracheal penetration with all given consistencies and bolus preference to left side of esophagus. CAD - Dr. Hensley. CVD. Hyperlipidemia. Hypertension. Hypothyroidism. Cataracts. Glaucoma. Hard of hearing with use of hearing aids. History of [place] - 1994, 2005. Diabetes Mellitus, Type 2. GERD with Barretts esophagus. History of hiatal hernia. History of biliary obstruction related to lymphoma. Chronic back pain. Surgical History: *Port placement - 01/10/[address] Enrique at [facility]. *EGD with PEG placement - 01/26/[address] Manjarrez at [facility]. * ERCP with internal drainage procedure and unsuccessful drain placement - 12/18/[address] Agudelo at [facility] in [place], [place]. * Percutaneous biliary stent - by Dr. Hebert at [facility] in [place], [place]. But Failed. * Cardiac stent - [address] Noe in [place], [place]. * CABG x 3 - [address] Noe in [place], [place]. * CABG x 4 - 1994 at [facility] in [place], [place]. * Removal of benign right kidney cyst - [address] Tellez in [place]. * Left rotator cuff repair - Dr. Land, [facility] in [place]. * Tonsillectomy - childhood [place] by DR. Drew in [facility]. Family History: Family History Father , at 86, MVA (motor vehicle accident). Mother , at 84, Anesthesia complication, Asthma. Brother , 80, Pancreatic cancer, Onset Age: 79. Brother , Hiatal hernia, Onset Age: 78, Complications - Cause of . Sister , 80, Leukemia, Onset Age: 77. Sister , 80, Colon abnormality, multiple colon resections, possible complication- Cause of . Son, Metabolic acidosis causing brain damage. - Social History Smoking status: Never smoker Substance use type: does not use Alcohol intake frequency: does not drink Housing: house Household members: spouse, family (adult daughter) Current occupational status: retired Does patient use chewing tobacco?: No Current residence: Apartment/Private Home Social history: PCP - Dr. Sharma. Cardio - Dr. Hensley. Neuro - Dr. Hill. Onc - Dr. Heredia. Medications Home Medications Medication Instructions Recorded Confirmed Type Ascorbic Acid [Vitamin C] 500 mg PEG DAILY #0 09/18/15 01/28/17 History Aspirin [Aspir 81] 81 mg PEG AM #0 09/18/15 01/28/17 History Atenolol 25 mg PO BID #0 09/18/15 01/28/17 History Multivitamin with Minerals 1 tab PEG HS #0 09/18/15 01/28/17 History [Multivitamins with Minerals] Phenytoin Sodium Extended 2 tab PEG BID #0 09/18/15 01/28/17 History Calcium Carbonate [Caltrate] 600 mg PEG DAILY 12/04/16 01/28/17 History Chlorpheniramine [Chlor-Trimeton] 4 mg PEG BID 12/04/16 01/28/17 History Cod Liver Oil 1 cap PEG DAILY 12/04/16 01/28/17 History Cyanocobalamin (Vitamin B-12) 1,000 mcg PEG HS 12/04/16 01/28/17 History [Vitamin B-12] Famciclovir [Famvir] 500 mg PEG BID 12/04/16 01/28/17 History Fenofibrate [Lofibra] 160 mg PEG HS 12/04/16 01/28/17 History Latanoprost 1 drop EACH EYE HS 12/04/16 01/28/17 History Losartan [Cozaar] 50 mg PEG HS 12/04/16 01/28/17 History Mccaulley-3/Dha/Epa/Fish Oil [Fish Oil 2,000 mg PEG DAILY 12/04/16 01/28/17 History 1,000 mg Softgel] Omeprazole 40 mg PEG BID 12/04/16 01/28/17 History Oxycodone/Acetaminophen 5/325 1 - 2 tab PEG Q4H PRN 12/04/16 01/28/17 History [Percocet 5/325] Red Yeast Rice 600 mg PEG BID 12/04/16 01/28/17 History Ubidecarenone/Vit E Acet [Co Q-10 100 mg PEG DAILY 12/04/16 01/28/17 History 100 mg Softgel] Glucophage (metformin) 500 mg 250 mg PEG BID tab 01/02/17 01/28/17 History tablet scopolamine 1 mg over 3 days 1 patch TD Q3D PRN 01/02/17 01/28/17 History transdermal patch fentanyl 25 mcg/hr transdermal 1 patch TD Q72H 01/04/17 01/28/17 History patch levothyroxine 75 mcg capsule 75 mcg PEG QAM cap 01/04/17 01/28/17 History sucralfate 1 gram tablet 1 g PEG TID tab 01/04/17 01/28/17 History Dronabinol [Marinol] 2.5 mg PEG BID 01/26/17 01/28/17 History Allopurinol [Zyloprim] 300 mg PEG DAILY 01/28/17 01/28/17 History Milk of Magnesia [Mom] 30 ml PEG DAILY PRN 01/28/17 01/28/17 History Ondansetron HCl 4 mg PEG Q6H PRN 01/28/17 01/28/17 History Polyethylene Glycol 3350 [Miralax] 17 gm PEG DAILY PRN 01/28/17 01/28/17 History Senna + Docusate [Senna Plus 1 tab PEG BID PRN 01/28/17 01/28/17 History Tablet] Allergies Allergy/AdvReac Type Severity Reaction Status Date / Time No Known Allergies Allergy Verified 01/28/17 09:02 Exam Vital Signs: Temperature 98.2 F 01/28/17 10:48 Pulse Rate 61 01/28/17 10:48 Respiratory Rate 16 01/28/17 10:48 Blood Pressure 153/74 H 01/28/17 10:48 Pulse Oximetry 95 01/28/17 10:48 Telemetry Rhythm: Sinus Rhythm Height/Weight/BMI: Height 5 ft 4 in Weight 111 lb 8.862 oz Body Mass Index 19.1 - Constitutional Present: no acute distress, cachectic, cooperative Comments: Very pleasant, cooperative. and daughter present on exam. - Routine HEENT Exam Head: Present: normocephalic, atraumatic Eye: Present: EOMI, PERRL, normal accommodation, proptosis (right eye - present prior to admission, unknown duration). Absent: conjunctival icterus ENT: Present: mucous membranes dry. Absent: dentition normal Comments: dentures not present. - Routine Neck Exam Present: supple, full ROM, trachea midline - Routine Chest/Breast/Axilla Exam Chest wall: Absent: tenderness Comments: Power port present. - Routine Respiratory Exam Present: CTA bilaterally. Absent: respiratory distress, rhonchi, stridor, wheezes, crackles - Routine Cardiovascular Exam Present: RRR, S1, S2 - Routine Abdominal Exam Present: soft, non distended, non tender Comments: hypoactive bowel sounds; patient is very thin; PEG in place with no skin breakdown or erythema noted. - Routine Extremities Exam Present: no edema, non tender, full ROM, pulses intact, normal capillary refill - Routine Back/Spine/Pelvis Exam Back/Spine: Present: full ROM. Absent: vertebral tenderness - Routine Skin Exam Present: intact, dry, warm. Absent: jaundice Comments: afebrile. - Routine Neurological Exam Present: alert, oriented X3 (slow at times to answer), moving all extremities, vision grossly intact, hearing grossly intact (at baseline; hearing aids present ), facial asymmetry (right facial droop). Absent: pronator drift, normal speech strength equal bilaterally to upper and lower extremities. - Detailed Neurological Exam Cerebellar function: Normal finger to nose, Normal heel to conner Sensory: Normal lower extremity light touch, Normal lower extremity temperature , Normal upper extremity light touch, Normal upper extremity temperature - Routine Psychiatric Exam Present: normal affect, cooperative Results - Labs CBC & Chem 7: 01/28/17 08:55 01/28/17 08:55 - Imaging and Cardiology CT scan - head Status: image reviewed by me Additional comments: Date of Exam: 01/28/17 Type of Exam(s): CT head/brain wo con Reason for Exam(s): Left-sided facial droop PROCEDURE: CT head/brain wo con: FINDINGS: Old left frontal lobe infarct with encephalomalacia. Small area of encephalomalacia in the right frontal lobe as well. Moderate atrophy. Chronic lacunar infarcts in the basal ganglia. The ventricles are stable. There are scattered areas of low attenuation in the white matter which most likely represent changes from chronic microvascular ischemia. The brainstem, cerebellum, and cerebral hemispheres otherwise have a normal morphology and CT attenuation. There is no evidence of midline displacement. No hemorrhage, signs of acute territorial stroke, mass effect, mass lesions, or edema is evident. The visualized portions of the skull base, midface, and calvarium demonstrate no abnormality. The paranasal sinuses are well aerated and free of significant disease. The tympanic and mastoid cavities appear normal. IMPRESSION: No acute intracranial abnormality or hemorrhage. 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 Hensley S/P CABG x4 and CABG x3, stent placement 2013 Current visit: No Status: Chronic Assessment and Plan: Assessment Suspected CVA with facial droop and dysarthria, acute. Leukocytosis, present on admission, acute. 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 Heredia. Anemia, unspecified. Protein calorie malnutrition, chronic. Dysphagia - Barium swallow test 01/24/17 revealed delayed aspiration with tracheal penetration with all given consistencies and bolus preference to left side of esophagus. CAD with CVD - Dr. Hensley. Hyperlipidemia, chronic. Hypertension, chronic. Hypothyroidism, chronic. Diabetes Mellitus, Type 2, chronic. GERD with Barretts esophagus, chronic. Chronic back pain. Plan - 01/28/17 (Admission) Admit to observation status under the care of Dr. Jensen and the hospitalist service. Initial CT head in ED revealed no acute intracranial abnormalities. Will obtain MRI head/brain in AM for further evaluation. Elevate head of bed and monitor neurologic function closely with neuro checks at least every shift. History of significant cardiac disease with CAD and CVD. Monitor closely on telemetry. Blood pressure was noted to be elevated upon admission as patient had not received his morning medications. Will hold home losartan 50mg QHS and atenolol 25mg BID given concern for CVA to encourage hyperperfusion. Monitor blood pressure closely. Will check lipid profile, A1c and echocardiogram in AM. Leukocytosis noted on admission with WBC 13.3. WBC on 01/26/17 was 10.0. Patient denies fevers. High risk for aspiration and admits to increased phlegm. Will obtain CXR now for further evaluation and monitor respiratory function closely. UA results pending. Patient denies dysuria. Decreased urinary output given today per patient. Monitor I&O closely and measure daily weight. Recent 11 lb weight loss in 2 weeks. Patient has a history of dysphagia with recent PEG placement by Dr. Manjarrez on 01/26/17. Barium swallow function on 01/24/17 revealed delayed aspiration with tracheal penetration with all given consistencies and bolus preference to the left side of the esophagus. Will consult speech therapy for swallow function evaluation. Maintain NPO status until speech evaluation. Will also consult dietary for nutritional supplement recommendations given protein calorie malnutrition. Previous prealbumin was 13. History of type II diabetes. Will monitor BGMs closely. Will initiate sliding scale insulin at low dose for optimum control of diabetes. Continue home metformin 250mg BID via PEG. Currently undergoing treatment for follicular lymphoma per Dr. Heredia. Monitor closely as patient is immunocompromised. Continue recommended allopurinol for prevention of tumor lysis and Famvir for shingles prophylaxis. Will check uric acid and LDH in AM. Patient may take home medications but need to crushed and given through PEG. Recheck CBC and CMP in AM to monitor blood counts, electrolytes, renal function and liver function. Patient follows with Dr. Hensley and recently underwent a reportedly negative stress test. Statin and Plavix were recently discontinued per Dr. Hensley, though reason is unclear. Continue ASA 81mg daily. Consider cardiology consult. Patient has previously seen Dr. Hill and is scheduled to see him Sunday01/31/17. Given clinical symptoms of CVA, would consider consultation for further evaluation and collaborative care. Continue home Percocet and fentanyl patch for chronic pain. Carafate and Prilosec BID for GERD and GI protection. Encourage bowel motivation. Continue scopolamine and zofran as needed for nausea. Upon discharge, patient's care will be returned to Dr. Sharma. Appreciate the opportunity to participate in his care. S: Pt's speech is difficult to understand but he reports he is doing okay overall. Denies any acute change in strength or sensation. Denies cp, sob, n/v/d , f/c. O: Gen: alert and oriented Cards: RRR, no murmurs Lungs: CTAB, no wheezes Ext: no rash, no swelling Neuro: Alert and oriented x3, Strength bilateral UE 5/5, RLE 5/5, LLE 4/5, patellar reflex 2/4, CN 2-12 intact other then right sided facial droop with facial motor nerve, sensation in Upper and lower ext intact A/P: Suspected CVA but CT is negative, will await MRI results tomorrow, not tpa candidate so will do medical management with permissive htn and maximizing tx of other comorbidities, will do work up for stroke but unclear if any intervention would result since pt is not good surgical candidate, will start with gentle feedings thru peg tube and consult sod cutter tomorrow, pt was on statin and plavix but was d/c so will discuss this with , will cont. asa for now but may need to consider asa failure. DVT Prophylaxis: SCD's GI Prophylaxis: other (Prilosec) Resuscitation Status: Full Code - Time spent with patient Time with patient PN: 70 minutes Hospital Course Summary Disclaimer: The visit summary below is not to be considered part of the above Progress Note. Hospital Course: Assessment Suspected CVA with facial droop and dysarthria, acute. Leukocytosis, present on admission, acute. 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 Heredia. Anemia, unspecified. Protein calorie malnutrition, chronic. Dysphagia - Barium swallow test 01/24/17 revealed delayed aspiration with tracheal penetration with all given consistencies and bolus preference to left side of esophagus. CAD with CVD - Dr. Hensley. Hyperlipidemia, chronic. Hypertension, chronic. Hypothyroidism, chronic. Diabetes Mellitus, Type 2, chronic. GERD with Barretts esophagus, chronic. Chronic back pain. Plan - 01/28/17 (Admission) Admit to observation status under the care of Dr. Jensen and the hospitalist service. Initial CT head in ED revealed no acute intracranial abnormalities. Will obtain MRI head/brain in AM for further evaluation. Elevate head of bed and monitor neurologic function closely with neuro checks at least every shift. History of significant cardiac disease with CAD and CVD. Monitor closely on telemetry. Blood pressure was noted to be elevated upon admission as patient had not received his morning medications. Will hold home losartan 50mg QHS and atenolol 25mg BID given concern for CVA to encourage hyperperfusion. Monitor blood pressure closely. Will check lipid profile, A1c and echocardiogram in AM. Leukocytosis noted on admission with WBC 13.3. WBC on 01/26/17 was 10.0. Patient denies fevers. High risk for aspiration and admits to increased phlegm. Will obtain CXR now for further evaluation and monitor respiratory function closely. UA results pending. Patient denies dysuria. Decreased urinary output given today per patient. Monitor I&O closely and measure daily weight. Recent 11 lb weight loss in 2 weeks. Patient has a history of dysphagia with recent PEG placement by Dr. Manjarrez on 01/26/17. Barium swallow function on 01/24/17 revealed delayed aspiration with tracheal penetration with all given consistencies and bolus preference to the left side of the esophagus. Will consult speech therapy for swallow function evaluation. Maintain NPO status until speech evaluation. Will also consult dietary for nutritional supplement recommendations given protein calorie malnutrition. Previous prealbumin was 13. History of type II diabetes. Will monitor BGMs closely. Will initiate sliding scale insulin at low dose for optimum control of diabetes. Continue home metformin 250mg BID via PEG. Currently undergoing treatment for follicular lymphoma per Dr. Heredia. Monitor closely as patient is immunocompromised. Continue recommended allopurinol for prevention of tumor lysis and Famvir for shingles prophylaxis. Will check uric acid and LDH in AM. Patient may take home medications but need to crushed and given through PEG. Recheck CBC and CMP in AM to monitor blood counts, electrolytes, renal function and liver function. Patient follows with Dr. Hensley and recently underwent a reportedly negative stress test. Statin and Plavix were recently discontinued per Dr. Hensley, though reason is unclear. Continue ASA 81mg daily. Consider cardiology consult. Patient has previously seen Dr. Hill and is scheduled to see him Sunday01/31/17. Given clinical symptoms of CVA, would consider consultation for further evaluation and collaborative care. Continue home Percocet and fentanyl patch for chronic pain. Carafate and Prilosec BID for GERD and GI protection. Encourage bowel motivation. Continue scopolamine and zofran as needed for nausea. Upon discharge, patient's care will be returned to Dr. Sharma. Appreciate the opportunity to participate in his care.
[2017-01-28] MEDS ORDERED: SCOPOLAMINE PATCH REMOVAL TD PRN (14:38)
[2017-01-28] MEDS ORDERED: INSULIN ASPART 100unit/ml INJECTION SQ PRN (14:58)
[2017-01-28] MEDS ORDERED: DEXTROSE 50% SYRINGE 50ml (1 AMP) IVP PRN (14:58)
[2017-01-28] MEDS ORDERED: SUCRALFATE 1gm/10ml ORAL LIQUID PEG SCH (15:00)
[2017-01-28] MEDS ORDERED: ONDANSETRON 4 MG PEG PRN (15:15)
[2017-01-28] MEDS: ALLOPURINOL 300 MG TAB - PT OWN PEG SCH (15:39)
[2017-01-28] MEDS ORDERED: PHARMACY CONSULT - OTHER MEDS MC ONE (15:58)
[2017-01-28] MEDS ORDERED: ACETAMINOPHEN 160mg/5ml ORAL LIQUID PO PRN (15:58)
[2017-01-28] MEDS ORDERED: CHLORPHENIRAMINE 4 MG TABLET PEG SCH (21:00)
[2017-01-28] MEDS ORDERED: LOSARTAN 50 MG TABLET PEG SCH (21:00)
[2017-01-28] MEDS ORDERED: SUCRALFATE 1 GM PO SCH (21:00)
[2017-01-28] MEDS ORDERED: FENOFIBRATE 160 MG PEG SCH (21:00)
[2017-01-28] MEDS ORDERED: LATANOPROST 0.005% EYE DROPS 2.5ml EACH EYE SCH (21:00)
[2017-01-28] MEDS ORDERED: ATENOLOL 25 MG TABLET PEG SCH (21:00)
[2017-01-28] MEDS: FAMCICLOVIR 500 MG PEG SCH (21:34)
[2017-01-28] MEDS: DRONABINOL 2.5 MG PO SCH (21:34)
[2017-01-28] MEDS: METFORMIN 500 MG TAB - PT OWN PEG SCH (21:36)
[2017-01-28] MEDS: PHENYTOIN 100 MG PEG SCH (21:37)
[2017-01-28] MEDS: OMEPRAZOLE 40 MG PEG SCH (21:37)
[2017-01-29] MEDS ORDERED: ACETAMINOPHEN 160mg/5ml ORAL LIQUID PEG PRN (06:45)
[2017-01-29 07:31] VITALS: BP 170/85; PULSE 72; TEMP 97.6; O2SAT 96
--- NOTE | 2017-01-29 08:27 | XRay Report ---
EXAM: XR chest 1V 1548 hours COMPARISON: 12/15/2016. 12/08/2016. 12/04/2016. 11/06/2016. A 01/05/2015. HISTORY: AMS . Altered mental status. FINDINGS:Right side chest port is in place entering through the right jugular vein with the tip at the mid SVC. Sternotomy wires and mediastinal clips are in place. The heart is upper limits of normal in size. The pulmonary vascularity appears unremarkable. The lungs are clear. There is no evidence for pleural effusion. There is no evidence for a pneumothorax. Mild AC joint arthrosis is noted. IMPRESSION: No acute cardiopulmonary process identified. LOCATION OF DICTATION: [facility] [place] .
[2017-01-29] MEDS ORDERED: SUCRALFATE 1gm/10ml ORAL LIQUID PEG SCH (09:00)
[2017-01-29] MEDS ORDERED: POLYETHYL GLYCOL 3350 17gm PACKET PEG PRN (09:00)
[2017-01-29] MEDS ORDERED: ASPIRIN 81 MG CHEWABLE TABLET PEG SCH (09:00)
[2017-01-29] MEDS ORDERED: VIT D PEG SCH (09:00)
[2017-01-29] MEDS ORDERED: COENZYME Q10 200 MG PEG SCH (09:00)
[2017-01-29] MEDS ORDERED: ASPIRIN *EC* 81 MG TAB - PT OWN PO SCH (09:00)
[2017-01-29] MEDS ORDERED: LEVOTHYROXINE 75 MCG PEG SCH (09:00)
[2017-01-29] MEDS ORDERED: CALCIUM PEG SCH (09:00)
[2017-01-29] MEDS: ALLOPURINOL 300 MG TAB - PT OWN PEG SCH (09:35)
[2017-01-29] MEDS: DRONABINOL 2.5 MG PO SCH (09:38)
[2017-01-29] MEDS: PHENYTOIN 100 MG PEG SCH (09:40)
[2017-01-29] MEDS: OMEPRAZOLE 40 MG PEG SCH (09:40)
[2017-01-29] MEDS: FAMCICLOVIR 500 MG PEG SCH (09:41)
[2017-01-29] MEDS: SUCRALFATE 1 GM PO SCH ×2 (09:41→14:21)
[2017-01-29] MEDS: METFORMIN 500 MG TAB - PT OWN PEG SCH (10:09)
[2017-01-29] MEDS ORDERED: SALINE FLUSH 10ml SYRINGE ONE (11:14)
[2017-01-29] MEDS ORDERED: GADOBUTROL 10mMol/10ml INJECTION IVP ONE (11:14)
--- NOTE | 2017-01-29 16:53 | Ultrasound Report ---
Indication: cva PROCEDURE: US carotid doppler BI: TECHNIQUE: Grayscale, color and duplex Doppler imaging was performed of the carotid systems bilaterally. Velocities in cm/sec - validated velocity measurements with angiographic measurements, velocity criteria are extrapolated from diameter data as defined by the Society of Radiologists in Ultrasound Consensus Conference Radiology 2003; 229;340-346. RIGHT: PSV ICA 162 EDV ICA 25.7 PSV CCA 89.1 EDV CCA 10.9 PSV ECA 123 ICA Diameter reduction 50%-70% (1.8-2.0)% LEFT: PSV ICA 0 EDV ICA 0 PSV CCA 51.1 EDV CCA 0 PSV ECA 123 ICA Diameter reduction 100% The right vertebral artery is patent with cephalic flow. The left vertebral artery is patent with cephalic flow. Moderate plaque in the carotid bulbs and right proximal ICA. No flow in the left ICA. IMPRESSION: 1. 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 2. 50-70% stenosis throughout the right ICA. .
--- NOTE | 2017-01-29 16:54 | Discharge Summary ---
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 Sharma who was [place] [facility] [place], 01/28/17, by his , Pat, and daughter for evaluation of facial droop. Tobi has a complex medical history including significant coronary artery disease with prior CABG x 4 and stent placement as well as type II diabetes mellitus, hypercholesterolemia, hypertension and hypothyroidism. On November 06, [address] which revealed a pancreatic soft tissue mass and adenopathy with additional mesenteric adenopathy encasing the superior mesenteric artery. The CT also demonstrated lesions within the spleen and bile duct obstruction. Endoscopic ultrasound directed fine-needle aspiration of the mass was suggestive of lymphoma. He was then admitted to [facility] in [place] during the week of 11/27/2016 and percutaneous needle biopsy revealed grade 1-2, possibly grade 3, follicular lymphoma. He has since been following with Dr. Heredia and elected to undergo chemotherapy. Due to his comorbid conditions, he is not a candidate for aggressive therapy. He has received 2 rounds of chemo with rituxan cytoxan vincristine prednisone (R-CVP). He was scheduled to receive his 3rd round at the beginning of January but treatment was postponed until due to persistent weight loss. Family reports that he has been losing approximately 5 pounds per week. He was reportedly 122 lbs on 01/11 and is currently 111 lbs on admission. Due to his weigh loss which was precipitated by intractable nausea in November and compounded with the chemotherapy, he underwent Power Port placement by Dr. Enrique on 01/10 followed by PEG placement by Dr. Manjarrez on 01/26/17. Family states that since his PEG placement on Sunday, he has received minimal nutrition, but was able to receive his evening medications crushed via PEG as well as about 12 ozs of Ensure last night. His daughter recalls that Tobi appeared to be "fixated" on his PEG tube, often picking it up and moving it around and was not easily re-directible, which she states is unusual, but didn't think more about it. This morning around 06, his Billie noticed that he was having increased difficulty putting in his dentures and required her assistance which she states has never happened before. Around 0730 his daughter reports that she noticed his speech was unintelligible and upon closer look, she noticed a new left sided facial droop. He [place] [facility] [place] [address] head which revealed an old left frontal lobe infarct with encephalomalacia, small area of encephalomalacia in the right frontal lobe, moderate atrophy, chronic lacunar infarcts in the basal ganglia and scattered areas of low attenuation in the white matter which most likely represent changes from chronic microvascular ischemia with no acute intracranial abnormality or hemorrhage. Upon return to the ED from CT it was noted that he had a RIGHT sided facial droop. Labs were obtained and revealed new leukocytosis (WBC 13.3) and persistent anemia with stable hemoglobin at 12.0. BMP was unremarkable. Liver enzymes were slightly more elevated as compared to recent labs on 01/26/17. Troponin was 0.013. The tele-neurologist was consulted in the ED and did not recommend tPA to be given as the last known time at baseline was more than 4.5 hours. Tobi admits to taking ASA 81mg daily and denies any history of a-fib or arrhythmia. He was seen and evaluated by Dr. Hensley in November 2016. He underwent a negative stress test. At that time, Dr. Hensley discontinued his home statin and Plavix , though it is unclear as to why. Family has all suspected that Tobi has had prior CVAs. Due to his right sided facial droop and significant comorbidities, Dr. Jensen was consulted and Tobi was admitted into observation stutus for further evaluation and close cardiac and neurologic monitoring. His length of stay is not expected to exceed more than 2 over nights. On exam, he is seen in his room, #[id number]. His daughter and are at the bedside and they contribute to his history. He denies any complaints or concerns. No recent fever, chills, dizziness, lightheadedness, headache, change in vision, chest pain, shortness of breath, abdominal pain, vomiting or dysuria. He does admit to decreased urination since his PEG placement but admits to having very little input. Code status was discussed and he states " let them try for a little bit but not long". Will make the patient a full code. Discussion with family following exam revealed that the family is questioning if they are able to continue the level of care Tobi needs at home and requested guidance from case management if possible. Objective Vital signs: Temperature 97.6 F 01/29/17 07:28 Pulse Rate 72 01/29/17 07:28 Respiratory Rate 16 01/29/17 07:28 Blood Pressure 170/85 H 01/29/17 07:28 Pulse Oximetry 96 01/29/17 07:28 Height/Weight/BMI: Height 5 ft 4 in Weight 50.7 kg Body Mass Index 19.1 Hospital Course This is a general summary of the patient's hospital course. For more details refer to the complete medical record. Hospital course: Assessment Suspected CVA with facial droop and dysarthria, acute. Leukocytosis, present on admission, acute. 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 Heredia. Anemia, unspecified. Protein calorie malnutrition, chronic. Dysphagia - Barium swallow test 01/24/17 revealed delayed aspiration with tracheal penetration with all given consistencies and bolus preference to left side of esophagus. CAD with CVD - Dr. Hensley. Hyperlipidemia, chronic. Hypertension, chronic. Hypothyroidism, chronic. Diabetes Mellitus, Type 2, chronic. GERD with Barretts esophagus, chronic. Chronic back pain. Plan - 01/28/17 (Admission) Admit to observation status under the care of Dr. Jensen and the hospitalist service. Initial CT head in ED revealed no acute intracranial abnormalities. Will obtain MRI head/brain in AM for further evaluation. Elevate head of bed and monitor neurologic function closely with neuro checks at least every shift. History of significant cardiac disease with CAD and CVD. Monitor closely on telemetry. Blood pressure was noted to be elevated upon admission as patient had not received his morning medications. Will hold home losartan 50mg QHS and atenolol 25mg BID given concern for CVA to encourage hyperperfusion. Monitor blood pressure closely. Will check lipid profile, A1c and echocardiogram in AM. Leukocytosis noted on admission with WBC 13.3. WBC on 01/26/17 was 10.0. Patient denies fevers. High risk for aspiration and admits to increased phlegm. Will obtain CXR now for further evaluation and monitor respiratory function closely. UA results pending. Patient denies dysuria. Decreased urinary output given today per patient. Monitor I&O closely and measure daily weight. Recent 11 lb weight loss in 2 weeks. Patient has a history of dysphagia with recent PEG placement by Dr. Manjarrez on 01/26/17. Barium swallow function on 01/24/17 revealed delayed aspiration with tracheal penetration with all given consistencies and bolus preference to the left side of the esophagus. Will consult speech therapy for swallow function evaluation. Maintain NPO status until speech evaluation. Will also consult dietary for nutritional supplement recommendations given protein calorie malnutrition. Previous prealbumin was 13. History of type II diabetes. Will monitor BGMs closely. Will initiate sliding scale insulin at low dose for optimum control of diabetes. Continue home metformin 250mg BID via PEG. Currently undergoing treatment for follicular lymphoma per Dr. Heredia. Monitor closely as patient is immunocompromised. Continue recommended allopurinol for prevention of tumor lysis and Famvir for shingles prophylaxis. Will check uric acid and LDH in AM. Patient may take home medications but need to crushed and given through PEG. Recheck CBC and CMP in AM to monitor blood counts, electrolytes, renal function and liver function. Patient follows with Dr. Hensley and recently underwent a reportedly negative stress test. Statin and Plavix were recently discontinued per Dr. Hensley, though reason is unclear. Continue ASA 81mg daily. Consider cardiology consult. Patient has previously seen Dr. Hill and is scheduled to see him Sunday01/31/17. Given clinical symptoms of CVA, would consider consultation for further evaluation and collaborative care. Continue home Percocet and fentanyl patch for chronic pain. Carafate and Prilosec BID for GERD and GI protection. Encourage bowel motivation. Continue scopolamine and zofran as needed for nausea. Upon discharge, patient's care will be returned to Dr. Sharma. Appreciate the opportunity to participate in his care. Discharge Summary Pt was admitted with right sided facial droop. Family reported that the facial droop was initially on the left but during the hospital stay it was on the right. On neuro exam pt really had no other major deficits. Their was concern for CVA but CT only showed old infarcts and no acute changes. MRI was done but at the time of this discharge the report had not come out. Pt overall was doing well and really only seemed to have a mild right sided facial droop as a result of a possible CVA. But management would not change based on MRI findings as pt need optimal medical management regardless d/t old stroke and pt was already on PEG tube feedings. Pt reported he was taken off statin and plavix by for unclear reasons. I discussed this with and he was unsure of the reason for this but was okay re-initiating those meds. We started atorvastatin and changed his ASA to plavix. If this is a CVA it was thought it be better to switch to plavix as this could be considered ASA failure as pt and family report really good compliance with meds and ASA. Stroke work up was also done as recommended by teleneurologist but again, it is unclear if any of this would slip box changer as pt would not be a surgical candidate. Pt was deemed safe to go home by PT/OT and family wanted to take him home and pt had home health already set up. Tube feeding directions and PEG tube care was discussed with family and pt. Pt was recommended to follow up with pcp soon and to ask for the results of the tests he had done during this hospital stay. Pt was overall doing well and had really no other complaints. Pending Results: MRI Brain Echo Carotid US Phenytoin level Discharge Plan - Discharge Disposition Discharge Date: 01/29/17 *Condition: Stable Reason For Visit (Visit label in EMR): CVA - Discharge Medications *Discharge Medications: New Atorvastatin [Lipitor] 1 tab PO HS #30 tab Clopidogrel [Plavix] 1 tab PO DAILY #30 tab Continue Atenolol 25 mg PO BID #0 Ascorbic Acid [Vitamin C] 500 mg PEG DAILY #0 Multivitamin with Minerals [Multivitamins with Minerals] 1 tab PEG HS #0 Omeprazole 40 mg PEG BID Famciclovir [Famvir] 500 mg PEG BID Losartan [Cozaar] 50 mg PEG HS Red Yeast Rice 600 mg PEG BID Era-3/Dha/Epa/Fish Oil [Fish Oil 1,000 mg Softgel] 2,000 mg PEG DAILY Oxycodone/Acetaminophen 5/325 [Percocet 5/325] 1 - 2 tab PEG Q4H PRN PRN Reason: Pain Cyanocobalamin (Vitamin B-12) [Vitamin B-12] 1,000 mcg PEG HS Calcium Carbonate [Caltrate] 600 mg PEG DAILY Bisacodyl Supp [Dulcolax] 10 mg RECTALLY DAILY PRN suppositor PRN Reason: Constipation Senna + Docusate [Senna Plus Tablet] 1 tab PEG BID PRN PRN Reason: Constipation Polyethylene Glycol 3350 [Miralax] 17 gm PEG DAILY PRN PRN Reason: Constipation Ondansetron HCl 4 mg PEG Q6H PRN PRN Reason: Nausea Milk of Magnesia [Mom] 30 ml PEG DAILY PRN PRN Reason: Constipation Allopurinol [Zyloprim] 300 mg PEG DAILY Phenytoin Sodium Extended 2 tab PEG BID #0 Fenofibrate [Lofibra] 160 mg PEG HS Cod Liver Oil 1 cap PEG DAILY Ubidecarenone/Vit E Acet [Co Q-10 100 mg Softgel] 100 mg PEG DAILY Latanoprost 1 drop EACH EYE HS Chlorpheniramine [Chlor-Trimeton] 4 mg PEG BID Dronabinol [Marinol] 2.5 mg PEG BID Glucophage (metformin) 500 mg tablet 250 mg PEG BID tab scopolamine 1 mg over 3 days transdermal patch 1 patch TD Q3D PRN PRN Reason: Nausea levothyroxine 75 mcg capsule 75 mcg PEG QAM cap sucralfate 1 gram tablet 1 g PEG TID tab fentanyl 25 mcg/hr transdermal patch 1 patch TD Q72H Discontinued Aspirin [Aspir 81] 81 mg PEG AM #0 - Discharge Packet/Instructions *Diet: Feedings through PEG *Activity: As tolerated *Expected Signs/Symptoms: slight right side facial droop *Notify Physician if: worsening facial weakness, change in weakness or sensation anywhere *During Business Hours Contact: Primary Care doctor *After Business Hours Contact: ED/Urgent care *Pending Lab/Results: Follow up w/your PCP (Echo, Carotid US, MRI, phenytoin level) - Referrals/Follow Up *Referrals/Follow Up: Danita Sharma MD [Family Provider] - 3 Days (Please schedule within 7 days) - Patient Handouts - Dismissal Complete Discharge Instructions are:: Complete
[2017-01-29] MEDS ORDERED: POTASSIUM CHLORIDE PREMIX 10 MEQ/100 ML BAG IV SCH (16:55)
--- NOTE | 2017-01-29 17:34 | Magnetic Resonance Report ---
EXAM: MR head/brain wo/w con LOCATION OF DICTATION: [place]. COMPARISON: 09/18/2015 CT head. 09/03/2015 CT head. 01/28/2017 CT head. HISTORY: AMS, facial droop, CVA history of lymphoma. TECHNIQUE: Axial images through the brain are obtained in T1, T2, FLAIR, diffusion weighted, and ADC map sequences. Sagittal T1 and Coronal T2 sequences are also obtained. After administration of 5 cc Gadavist contrast, axial and coronal post contrast T1 sequences were obtained. FINDINGS: The CSF spaces are prominent likely related to atrophy in keeping with age. Multiple periventricular deep white matter hyperintense FLAIR foci are noted likely related to small vessel ischemic disease. There is questionable hyperintense diffusion-weighted sequence signal within the cortex or meehan-white junction at the left posterior parietal lobe which is hypointense on the ADC map. Although this could be artifactual. Correlating signal is not seen on the FLAIR sequence. Thus, the findings are equivocal. No other areas of restricted diffusion are identified. The suprasellar cistern and quadrigeminal plate cisterns are intact. The meehan-white junctions are distinct. No sulcal effacement is identified. The basal ganglia, posterior fossa, brainstem region appear unremarkable. There is no evidence for midline shift or mass effect. The midline structures appear unremarkable. The internal auditory canal regions appear unremarkable.No abnormal enhancing lesions are identified. A space-occupying mass is not appreciated. The paranasal sinuses and mastoid air cells are clear. IMPRESSION: 1. There is questionable restricted diffusion within the cortex or meehan-white junction at the left posterior parietal lobe but the finding is equivocal and could be artifactual although a focal small area of acute ischemia cannot be excluded. Clinical correlation is suggested. 2. Atrophy in keeping with age. 3. Periventricular deep white matter hyperintense FLAIR foci are noted likely related to small vessel ischemic disease. .
[2017-01-29] MEDS ORDERED: POTASSIUM CHLORIDE INJ 10 MEQ in NS 100 ML IV SCH (18:00)
--- NOTE | 2017-01-30 09:27 | Echocardiogram ---
DATE OF PROCEDURE January 29, [address] Santana Singh This is a two-dimensional echo with spectral Doppler, color-flow and M-mode. It was obtained in a patient with CVA. Left atrial dimension is normal. Left ventricle end-diastolic dimension is normal. Left ventricle wall thickness is increased. LV systolic function is mildly reduced with ejection fraction of about 45%. Right atrium is normal. Right ventricle is normal. Aortic root dimension is normal. Mitral valve is morphologically normal with mild mitral regurgitation. Aortic valve shows no stenosis. Mild aortic insufficiency is present. Tricuspid valve shows mild tricuspid regurgitation with mild pulmonary hypertension with estimated pulmonary artery systolic pressure of 40. Pulmonary valve shows no pulmonary insufficiency. There is no pericardial effusion. IMPRESSION 1. LV function mildly reduced with ejection fraction of 45%. 2. Left ventricular hypertrophy. 3. Mild mitral regurgitation. 4. Mild tricuspid regurgitation with mild pulmonary hypertension with estimated pulmonary artery systolic pressure of 40. 5. Mild aortic insufficiency. 6. Grossly no intracardiac thrombus or mass. MTDD
--- NOTE | 2017-01-31 08:32 | Right on Track Program ---
Right on Track Program Date of Discharge: 01/29/17 Home Medications: Home Medications Medication Instructions Recorded Confirmed Ascorbic Acid [Vitamin C] 500 mg PEG DAILY #0 09/18/15 01/28/17 Atenolol 25 mg PO BID #0 09/18/15 01/28/17 Multivitamin with Minerals 1 tab PEG HS #0 09/18/15 01/28/17 [Multivitamins with Minerals] Phenytoin Sodium Extended 2 tab PEG BID #0 09/18/15 01/28/17 Calcium Carbonate [Caltrate] 600 mg PEG DAILY 12/04/16 01/28/17 Chlorpheniramine [Chlor-Trimeton] 4 mg PEG BID 12/04/16 01/28/17 Cod Liver Oil 1 cap PEG DAILY 12/04/16 01/28/17 Cyanocobalamin (Vitamin B-12) 1,000 mcg PEG HS 12/04/16 01/28/17 [Vitamin B-12] Famciclovir [Famvir] 500 mg PEG BID 12/04/16 01/28/17 Fenofibrate [Lofibra] 160 mg PEG HS 12/04/16 01/28/17 Latanoprost 1 drop EACH EYE HS 12/04/16 01/28/17 Losartan [Cozaar] 50 mg PEG HS 12/04/16 01/28/17 [place]-3/Dha/Epa/Fish Oil [Fish Oil 2,000 mg PEG DAILY 12/04/16 01/28/17 1,000 mg Softgel] Omeprazole 40 mg PEG BID 12/04/16 01/28/17 Oxycodone/Acetaminophen 5/325 1 - 2 tab PEG Q4H PRN 12/04/16 01/28/17 [Percocet 5/325] Glucophage (metformin) 500 mg 250 mg PEG BID tab 01/02/17 01/28/17 tablet fentanyl 25 mcg/hr transdermal 1 patch TD Q72H 01/04/17 01/28/17 patch levothyroxine 75 mcg capsule 75 mcg PEG QAM cap 01/04/17 01/28/17 Allopurinol [Zyloprim] 300 mg PEG DAILY 01/28/17 01/28/17 Milk of Magnesia [Mom] 30 ml PEG DAILY PRN 01/28/17 01/28/17 Ondansetron HCl 4 mg PEG Q6H PRN 01/28/17 01/28/17 Polyethylene Glycol 3350 [Miralax] 17 gm PEG DAILY PRN 01/28/17 01/28/17 Senna + Docusate [Senna Plus 1 tab PEG BID PRN 01/28/17 01/28/17 Tablet] Previous Rx's Medication Instructions Recorded Bisacodyl Supp [Dulcolax] 10 mg RECTALLY DAILY PRN 12/14/16 suppositor Atorvastatin [Lipitor] 1 tab PO HS #30 tab 01/29/17 Clopidogrel [Plavix] 1 tab PO DAILY #30 tab 01/29/17 - Right on Track Program Phone call 01/30/17 Date: 01/31/17 Right on Track Program: 24 Hour Follow-Up Discharge Summary Received: Yes Care Plan Received: Yes Follow Up: Pending Tests Reviewed, Follow up Tests Reviewed, Follow Up Appointment Scheduled (Dr. Hill 01/31/17; appt with Dr. Sharma needs to be scheduled) Education: Diagnosis Education Reviewed Referral: Primary Care Physician, Physical Therapy, Home Health Comments: I called Ross' daughter Vikas on 01/30/17. She reported that the Q4h feedings were "taxing" on everyone involved and wants to know if there's an easier way. He hasn't had any n/v; but she reports that when they tried 8 oz in the hospital he vomited, so she understands why they are doing more frequent feedings with smaller volumes for the time being. She also states that the G- tube became clogged up with am meds - HH is on the way out to troubleshoot. They are considering a short-stay private pay placement versus private pay at home, especially considering how time intensive the G-tube is. She expects his hospital bed to be delivered today. Regarding medications, Ross needs a new Rx for atorvastatin - he doesn't have this at home. She's not sure why the atorvastatin and Plavix were dc'd recently, but reports that Ross is glad to be back on it. She denied questions on discharge instructions. Recommendations For Follow-up: ASSESSMENT 1. G-tube malfunction 2. Missing Rx for atorvastatin 3. Stroke 4. 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 Heredia 5. PCM. 6. Dysphagia - barium swallow test on 01/24/17 showed delayed aspiration with tracheal penetration of all consistencies 7. CAD, CVD, HLD, HTN, hypothyroid, DM2, GERD with Barretts, chronic back pain PLAN 1. Home Health RN to assess clogged G-tube. I discussed the feeding schedule with Leda Dawn RD - recommends to start feedings at 0600 then go every 4 hours while awake with last feeding right before bed; ok to go through the night. Also, she would not recommend a higher calorie feeding - increases risk for dehydration. 2. Rx atorvastatin called in to [facility] 3. Continue HH/PT/OT 4. Home visit scheduled for 02/06/17 [id number] 02/06/17 Date: 02/07/17 Right on Track Program: 7-14 Day [id number] Discharge Summary Received: Yes Care Plan Received: Yes Follow Up: Pending Tests Reviewed, Follow up Tests Reviewed, Follow Up Appointment Scheduled Education: Diagnosis Education Reviewed, Education Provided To Caregiver Referral: Primary Care Physician, Physical Therapy Comments: I visited Tobi in his home on 02/06/17. His of about 18 months, Billie, was there, along with his daughter, Vikas. Billie and Vikas are Tobi's primary caretakers. We covered a variety of topics, as discussed below. Nutrition: Tube feeds are going well, and they have progressed to 8 oz per feeding, 5 times per day. The goal is to reach 48-56 oz. per day. He has gained 4.5 lbs since hospital discharge and his gait is stronger. Billie and Vikas have learned how to manipulate and troubleshoot the Peg tube but are assured to have Home Health available. Constipation: He finally had a bowel movement after not having 1 for a week. Stool softener (ie Senna Plus) was recommended). Medication review: Pills were organized per Home Health, and Billie takes the time to grind up the pills in advance. They have eliminated some medications that tended to coat the tube, which were approved by PCP. We reviewed the indications for medication and spent time discussing secondary prevention for strokes. We also discussed the next step as recommended by Dr. Hill, which would be an anticoagulant. He is on some high risk medications per [facility] list, including omeprazole, antiHTN, scopolamine, fentanyl patch, phenytoin, and chlorpheniramine (which he's taken for 40 years). We discussed the risk of confusion, dizziness, and altered mental status with scopolamine patch, fentanyl , and the antihistamine, and he may need to eliminate the chlorpheniramine in anh of a safer antihistamine (though family state that the non-sedating antihistamines were unsuccessful). He also becomes very nauseated without the scopolamine patch. BP monitoring: He had some low readings over , around 103/45 - Tobi denies any symptoms such as lightheadedness, dizziness, weakness. They are keeping a log of his BP and plan on reporting back to [facility]. Coughing/choking during the night: We discussed that he is very high risk for aspiration and reviewed those symptoms and the possible outcomes of aspiration. Pat reports that he has a large amount of yellow sputum that he tries to cough up every morning - perhaps a nasal steroid would be helpful in reducing these secretions. They will ask the RN to instruct them on suctioning. Chemo: He becomes very confused, agitated, and at times difficult to direct for a few days after chemo. He's had 2 of his 8 cycles so far. He becomes overfocused on some things, ie intently opening, counting, and replacing his pills in medicine bottles (these have since been removed from his site). They are under the impression that his cancer will be cured, though in review of UpToDate, given his stage of follicular lymphoma, treatment is typically provided to focus on symptom control and improve QOL. CVP-R has a 3 year survival of 89% with a median time to progression of 2.8 years. Primary side effects are GI in nature, neuropathy, and neutropenia. They intend on evaluating his response after each cycle to determine the next step. We discussed whether or not the confusion/agitation is significant enough to forego the chemo - at this time they wish to proceed with chemo, but understand that his symptoms may worsen. Cognitive decline & strain on caregiver: In addition to physical decline noted since mid-Oct when he was diagnosed with cancer, Vikas has seen increased forgetfulness and is concerned about his safety. At times he forgets to use his walker. At times he is difficult to redirect. When I was there, he started opening a Kit-Morena bar and took it to his mouth, but this was halted by Pat. He did well on the 3-item screen, identifying date/day of the week, 3-item recall, and place, but he may need a more formal evaluation ie VESNA. I am concerned about the degree of encephalomalacia seen on head CT and progression of vascular dementia, which may be exacerbated by high-risk medications and chemotherapy. Further, Vikas later disclosed that she worries about Pat's ability to safely care for Tobi - at times she misdates his ground up medications and she is worried he may inadvertently overdose. Another time, Pat was helping him walk, but she ended up falling herself. As a caregiver, she is experiencing immense stress and strain. We discussed the option of placement, but Tobi and Pat are largely opposed. Depression screen: negative. Tobi rates his QOL as "very good". Fall risk: High. They've done well in making the home as functionally safe as possible. He has a hospital bed in the living room. TUG time was 34 sec. Advanced directives: They have been very open and clear about DPOA, living will , and end-of-life wishes. He is a DNR. Exam: Gen: Pleasant, A&O x3, NAD CN: slight right facial droop; speech occ slurred; upper/lower ext strength equal. Gait was steady without a limp. CV: RRR. Lungs: initially crackles to RLL, cleared with deep breathing. No wheezing. Abd: peg site clean; + bowel sounds; nontender Ext: no edema Discussed With Patient and Caregiver: Yes Recommendations For Follow-up: Primary concerns: 1. Advanced cerebrovascular and peripheral vascular disease, hx of strokes, question presence of vascular dementia with progression 2. Concern for safety and chemo-induced delirium 3. Aspiration 4. Intolerance to chemo (Tobi and Pat have an expectation for cure) 5. Caregiver strain Plan Tobi's health is maintained currently, but he is extremely high risk for a vascular emergency (ie stroke/MD), unintentional injury d/t confusion or caregiver accident, respiratory distress d/t aspiration, adverse effects to chemo which could worsen these conditions and add to caregiver strain. He is receiving Home Health services, but may need additional help, perhaps private duty. He may be best served in LTC, though he and Pat are opposed to this. Vikas is very realistic about his poor health, and admits that she needs help at home. Will discuss these issues in more detail with CM and with PCP. In the meantime, continue meds for secondary prevention of stroke, continue HH and PT/ OT, continue advancing tube feeds, consider nasal steroid, consider modifying high-risk meds, monitor BP and reduce doses of antiHTN if consistently low pressures, start a regular stool softener, consider formal cognitive testing, support caregivers, and provide as safe of an environment as possible.
== END 2017-01-29 17:51 | disposition home health service (06) ==
LOC: MED 08:29 → ED 08:29 → MED 10:45
PROVIDERS: ADMIT Internal Medicine; ATTEND Internal Medicine